=== PATIENT | male | born 1955 | race Caucasian/White ===

== ENCOUNTER → 2016-04-10 | Outpatient (CLI) | payer BC ==
[~2016-04-10] MED LIST: ALLO100T PO; ASPI81TA28 PO; ATEN50TA8 PO; LISI10TA PO; MELO15TA4 PO
[2016-04-10 18:10] LABS: BLOOD UREA NITROGEN 19 mg/dl (7-18); CALCIUM 8.7 mg/dl (8.5-10.1); CARBON DIOXIDE 24 mmol/L (21-32); CHLORIDE 107 mmol/L (98-107); GLUCOSE 78 mg/dl (70-99); POTASSIUM 4.1 mmol/L (3.5-5.1); SODIUM 139 mmol/L (136-145); URIC ACID 6.7 mg/dl (2.6-7.2)
== END | disposition home or self-care (01) ==
LOC: C.LABPBG 12:52
PROVIDERS: ATTEND Family Medicine
DX: M1A.9XX0 Chronic gout, unspecified, without tophus (tophi) (principal); I10 Essential (primary) hypertension

== ENCOUNTER → 2016-10-26 | Outpatient (CLI) | payer BC ==
[~2016-10-26] MED LIST changes: +DICL-201 PO
[2016-10-29 22:28] LABS: CHLORIDE STOOL 33 mEq/L; POTASSIUM STOOL 48 mEq/L
== END | disposition home or self-care (01) ==
LOC: C.LABSPEC 13:03
PROVIDERS: ATTEND Physician Assistant
DX: R19.7 Diarrhea, unspecified (principal)

== ENCOUNTER → 2016-11-16 | Day surgery (SDC) | payer BC ==
[~2016-11-16] VITALS: Ht 180.3 cm; Wt 87.5 kg
[2016-11-16 08:14] VITALS: BP 119/78; PULSE 60; TEMP 36.6; O2SAT 99; Ht 180.3 cm; Wt 87.5 kg
[2016-11-16 11:54] VITALS: BP 120/80; PULSE 60; TEMP 36.5; O2SAT 99
--- NOTE | 2016-11-24 12:23 | Procedure Note ---
Breath Hydrogen Test Interpretation Assessment: Normal Lactose breath test, without any evidence of Lactose intolerance. Plan: Followup with PCP for further evaluation and recommendations.
== END | disposition home or self-care (01) ==
LOC: C.MTU 08:03
PROVIDERS: ATTEND Internal Medicine
DX: R19.7 Diarrhea, unspecified (principal)

== ENCOUNTER → 2016-12-07 | Outpatient (CLI) | payer BC ==
[~2016-12-07] MED LIST changes: -ATEN50TA8 PO; -MELO15TA4 PO
[2016-12-07 15:12] LABS: CHOLESTEROL/HDL RATIO 3.5
== END | disposition home or self-care (01) ==
LOC: C.LABPBG 11:06
PROVIDERS: ATTEND Family Medicine
DX: Z00.00 Encounter for general adult medical examination without abnormal findings (principal); Z13.220 Encounter for screening for lipoid disorders; Z13.1 Encounter for screening for diabetes mellitus

== ENCOUNTER → 2017-02-20 | Outpatient (CLI) | payer OTHER ==
[~2017-02-20] MED LIST changes: +HYOS1TAB PO; +LISI20TA3 PO
== END | disposition home or self-care (01) ==
LOC: C.LABSPEC 15:38
PROVIDERS: ATTEND Student in an Organized Health Care Education/Training Program
DX: R19.7 Diarrhea, unspecified (principal)

== ENCOUNTER → 2017-03-08 | Day surgery (SDC) | payer OTHER ==
[2017-02-22 13:07] VITALS: Ht 180.3 cm; Wt 87.7 kg
[~2017-03-08] VITALS: Ht 180.3 cm; Wt 87.7 kg
[~2017-03-08] MED LIST changes: +LIDOCAINE HCL 2% 2 ML VIAL (20MG/ML) ONE; -LISI10TA PO; +MIDAZOLAM HCL 1 MG/ML 2ML VIAL ONE; +ONDANSETRON INJ 2 MG/ML 2 ML VIAL ONE; +PROPOFOL IV EMULSION 10 MG/ML 20 ML VIAL IV ONE; +SODIUM CHLORIDE 0.9% 500ML 500 ML IV ONE
--- NOTE | 2017-03-08 10:13 | Endo History and Physical ---
History & Physical Date of Service: Mar 08, 2017. Chief Complaint: diarrhea Referring Physician: Dr. Esperanza Crook History of Present Illness 61 yo CM who presents for colonoscopy secondary to diarrhea. Past Surgical History Hx Cardiac Surgery: No Hx Internal Defibrillator: No Hx Pacemaker: No Hx Abdominal Surgery: No Hx of Implantable Prosthesis: No Hx Post-Op Nausea and Vomiting: No Hx Cancer Surgery: No Hx Thoracic Surgery: No Hx Orthopedic: No Hx Urinary Tract Surgery: No Family History None Social History Smoking Status: Never Smoker Hx Substance Use: No Hx Alcohol Use: No Allergies Coded Allergies: No Known Allergies (Verified , 03/08/17) Current Medications Reported Home Medications Medications Dose Route/Sig Max Daily Dose Days Date Category Dose Instructions Levsin (Hyoscyamine Sulfate) 0.125 Mg Tab 2 Tabs PO QID 02/22/17 Reported Prinivil (Lisinopril) 20 Mg Tab 20 Mg PO HS 02/22/17 Reported Voltaren (Diclofenac Sodium) 75 Mg Tabcr 75 Mg PO BID 11/16/16 Reported WITH FOOD Aspirin Ec (Aspirin) 81 Mg Tab 81 Mg PO HS 12/20/15 Reported Zyloprim (Allopurinol) 100 Mg Tab 100 Mg PO HS 12/20/15 Reported Vital Signs Weight (Kilograms): 87.73 Height (Feet): 5 Height (Inches): 11 Date Time Temp Pulse Resp B/P (MAP) Pulse Ox O2 Delivery O2 Flow Rate FiO2 03/08/17 09:40 36.7 90 20 128/88 (101) 98 Room Air Physical Exam General Appearance: WD/WN, no apparent distress Respiratory/Chest: Auscultation: breath sounds normal Cardiovascular: Heart Auscultation: RRR Abdomen: Bowel Sounds: normal Inspection & Palpation: soft, non-distended, no tenderness, guarding & rebound Assessment and Plan Assessment: 61 yo CM who presents for colonoscopy secondary to diarrhea. Plan: Proceed with colonoscopy.
--- NOTE | 2017-03-08 11:00 | Discharge Instructions ---
Endoscopy Patient Instructions Date / Procedure(s) Performed Mar 08, 2017. Colonoscopy Allergy Information Coded Allergies: No Known Allergies (Verified , 03/08/17) Discharge Date / Findings Mar 08, 2017. Random colon biopsies Stool studies collected Internal hemorrhoids Medication Instructions Stopped Medication(s): took ASA last night at 1930 OK to resume all medications today as prescribed Reported Home Medications Medications Dose Route/Sig Max Daily Dose Days Date Category Dose Instructions Levsin (Hyoscyamine Sulfate) 0.125 Mg Tab 2 Tabs PO QID 02/22/17 Reported Prinivil (Lisinopril) 20 Mg Tab 20 Mg PO HS 02/22/17 Reported Voltaren (Diclofenac Sodium) 75 Mg Tabcr 75 Mg PO BID 11/16/16 Reported WITH FOOD Aspirin Ec (Aspirin) 81 Mg Tab 81 Mg PO HS 12/20/15 Reported Zyloprim (Allopurinol) 100 Mg Tab 100 Mg PO HS 12/20/15 Reported Provider Instructions Activity Restrictions - No exercising or heavy lifting for 24 hours. - Do not drink alcohol the day of the procedure. - Do not drive a car or operate machinery until the day after the procedure. - Do not make any important decisions or sign important papers in 24 hours after the procedure. Following Day: - Return to full activity which may include returning to work/school. Diet Start your diet with liquids and light foods (jello, soup, juice, toast). Then eat your usual diet if not nauseated. Treatment For Common After Affects For mild abdominal pain, bloating, or excessive gas: - Rest - Eat lightly - Lie on right side Follow-Up Information Follow-up with Dr. Esperanza Crook as scheduled Anesthesia Information What You Should Know You have had a procedure that required some medicine to reduce anxiety and discomfort. This treatment is called moderate sedation. After receiving the treatment, you may be sleepy, but you will be able to breathe on your own. The effects of the treatment may last for several hours. Follow these instructions along with Activity/Diet recommendations noted above: * Do NOT do anything where dizziness or clumsiness would be dangerous. * Rest quietly at home today, then you can be up and about tomorrow. * Have a responsible person stay with you the rest of today. * You may have had an I.V. today. If so, you may take the dressing off later today. Recommendations Call your doctor if: * Trouble breathing * Continuous vomiting for more than 24 hours * Temperature above 101 degrees * Severe abdominal pain or bloating * Pain not relieved by pain medicine ordered * There is increased drainage or redness from any incision * A large amount of rectal bleeding greater than 2-3 tablespoons. (If you had a polyp/s removed or have hemorrhoids, a small amount of blood - from the rectum is to be expected.) * You have any unanswered questions or concerns. IN THE EVENT OF A SERIOUS EMERGENCY, GO TO THE NEAREST EMERGENCY ROOM Your discharge instructions were prepared by provider Yoan West. Patient Instructions Signature Page Eyad Tillman Patient (or Guardian) Signature/Date: I have read and understand the instructions given to me by my caregivers. Caregiver/RN/Doctor Signature/Date: The above-named patient and/or guardian has received patient instructions on this date. + Original Patient Signature Page (only) stays with chart. Please make copy for patient.
--- NOTE | 2017-03-08 11:05 | GI REPORT ---
Procedure Date: 03/08/2017 10:34 AM Procedure: Colonoscopy Indications: Chronic diarrhea Medicines: Monitored Anesthesia Care Complications: No immediate complications. Estimated Blood Loss: Estimated blood loss: none. Procedure: Pre-Anesthesia Assessment: - Prior to the procedure, a History and Physical was performed, and patient medications and allergies were reviewed. The patient's tolerance of previous anesthesia was also reviewed. The risks and benefits of the procedure and the sedation options and risks were discussed with the patient. All questions were answered, and informed consent was obtained. Prior Anticoagulants: The patient has taken aspirin, last dose was 1 day prior to procedure. ASA Grade Assessment: II - A patient with mild systemic disease. After reviewing the risks and benefits, the patient was deemed in satisfactory condition to undergo the procedure. After I obtained informed consent, the scope was passed under direct vision. Throughout the procedure, the patient's blood pressure, pulse, and oxygen saturations were monitored continuously. The scope was introduced through the anus and advanced to the terminal ileum. The colonoscopy was performed without difficulty. The patient tolerated the procedure well. The quality of the bowel preparation was good. The terminal ileum, the appendiceal orifice and the rectum were photographed. Findings: The perianal and digital rectal examinations were normal. Non-bleeding internal hemorrhoids were found during retroflexion. The hemorrhoids were small. Several random biopsies were obtained with cold forceps for histology in the entire colon. Fluid aspiration for Stool studies was performed in the entire colon. Impression: - Non-bleeding internal hemorrhoids. - Several random biopsies were obtained in the entire colon. - Fluid aspiration was performed. Recommendation: - Resume previous diet. - Continue present medications. - Await pathology results. - Return to primary care physician as previously scheduled. Yoan West DO 03/08/2017 11:05:23 AM This report has been signed electronically. Note Initiated On: 03/08/2017 10:34 AM I attest to the content of the Intraoperative Record and orders documented therein, exceptions below
--- NOTE | 2017-03-08 11:30 | Anesthesiology Progress Note ---
Anesthesia Post Op Note Date & Time Mar 08, 2017 at 11:30 Vital Signs Pain Intensity: 0 Vital Signs Past 12 Hours Date Time Temp Pulse Resp B/P (MAP) Pulse Ox O2 Delivery O2 Flow Rate FiO2 03/08/17 11:15 92 20 104/72 (83) 97 Room Air 03/08/17 11:00 84 20 94/64 (74) 94 Room Air 03/08/17 09:40 36.7 90 20 128/88 (101) 98 Room Air Notes Mental Status: alert / awake / arousable, participated in evaluation Pt Amnestic to Procedure: Yes Nausea / Vomiting: adequately controlled Pain: adequately controlled Airway Patency, RR, SpO2: stable & adequate BP & HR: stable & adequate Hydration State: stable & adequate Anesthetic Complications: no major complications apparent
[2017-03-08 11:31] VITALS: BP 108/72; PULSE 81; O2SAT 97
== END | disposition home or self-care (01) ==
LOC: C.GI 09:18
PROVIDERS: ATTEND Internal Medicine
DX: K52.832 Lymphocytic colitis (principal); K64.8 Other hemorrhoids; Z79.82 Long term (current) use of aspirin; I10 Essential (primary) hypertension

== ENCOUNTER → 2017-04-20 | Outpatient (CLI) | payer OTHER ==
[~2017-04-20] MED LIST changes: -LIDOCAINE HCL 2% 2 ML VIAL (20MG/ML) ONE; -MIDAZOLAM HCL 1 MG/ML 2ML VIAL ONE; -ONDANSETRON INJ 2 MG/ML 2 ML VIAL ONE; -PROPOFOL IV EMULSION 10 MG/ML 20 ML VIAL IV ONE; -SODIUM CHLORIDE 0.9% 500ML 500 ML IV ONE
[2017-04-20 12:55] LABS: BLOOD UREA NITROGEN 31 mg/dl (7-18); CALCIUM 9.1 mg/dl (8.5-10.1); CARBON DIOXIDE 25 mmol/L (21-32); CREATININE 1.05 mg/dl (0.60-1.40); GLUCOSE 81 mg/dl (70-99); SODIUM 140 mmol/L (136-145)
== END | disposition home or self-care (01) ==
LOC: C.LABPBG 08:02
PROVIDERS: ATTEND Family Medicine
DX: I10 Essential (primary) hypertension (principal)

== ENCOUNTER → 2017-06-25 | Outpatient (CLI) | payer OTHER ==
[2017-06-25 17:23] LABS: BLOOD UREA NITROGEN 21 mg/dl (7-18); CREATININE 0.95 mg/dl (0.60-1.40); GLUCOSE,FASTING 75 mg/dl (70-99)
[2017-06-25 17:24] LABS: CALCIUM 8.7 mg/dl (8.5-10.1); CARBON DIOXIDE 21 mmol/L (21-32); POTASSIUM 3.8 mmol/L (3.5-5.1); SODIUM 140 mmol/L (136-145)
== END | disposition home or self-care (01) ==
LOC: C.LABPBG 11:13
PROVIDERS: ATTEND Family Medicine
DX: K52.832 Lymphocytic colitis (principal)

== ENCOUNTER 2020-01-12 09:33 | Inpatient (IN) ==
[2020-01-12] MEDS ORDERED: IPRATROPIUM BROMIDE/ALBUTEROL respimat INH INH STA (09:58)
[2020-01-12] MEDS ORDERED: guaiFENesin 600 MG TABCR PO STA (09:58)
[2020-01-12] MEDS ORDERED: DEXAMETHASONE SOD INJ 10 MG/ML VIAL IV ONE (10:03)
--- NOTE | 2020-01-12 10:10 | Emergency Department Note ---
Impression & Plan Pneumonia due to COVID-19 virus, SHERYL (acute kidney injury), Lactic acid acidosis, Acute liver failure, Sepsis, Acute respiratory failure ED Provider Note NAME: MEGA KONG AGE: 64 SEX: M ARRIVES VIA: Walk-In INFORMANT: Patient, ED PROVIDER(S): Victor Hugo Ferris MD CHIEF COMPLAINT: Syncope, shortness of breath. PLAN: Disposition: Admit MEDICAL DECISION MAKING: The patient is a pleasant 64-year-old gentleman with a past medical history of hypertension, hyperlipidemia who presents emergency department with syncopal episode when in route to obtain outpatient chest x-ray for worsening shortness of breath in the setting of presumed COVID-19 infection given his tested positive in the past week. Patient had outpatient test performed yesterday but is still awaiting his confirmatory results. He was started on azithromycin and prednisone for suspicion for component of bronchitis by his PCP. He reports fevers, chills, body aches, persistent cough and shortness of breath where he feels he is breathing fast all the time and easily becomes lightheaded with minimal exertion. When walking into the hospital he began to feel lightheaded and fell against the wall/window and lowered himself to the ground he did not feel he hit his head hard and did not pass out. He was brought back immediately by ED staff where he appeared significantly dyspneic with respiratory rate in the 40s, heart rate in the 120s, normal blood pressure but difficult to obtain O2 saturation placed on O2 nasal cannula given his work of breathing. On arrival he is in moderate respiratory distress, tachypneic, tachycardic. Appears clinically dry. He has intermittent wheeze and diminished at the bases. EKG demonstrates nonspecific ST and T wave abnormality with incomplete right bundle branch block and left posterior fascicular block. There is no prior EKGs for comparison. No overt ST elevation. WBC 16.4, with neutrophil predominance. H/H and platelets within normal limits. VBG with acidemia of 7.25 and PCO2 of 37 with chemistry demonstrating anion gap metabolic acidosis with a gap of 20 and bicarb of 16. He does have acute renal failure with creatinine of 2.7. Initial lactic acid was 9.8 with subsequent improvement after IV fluid resuscitation down to 7.0. The patient did exhibit significant transaminitis with AST 2900 and ALT 2000 there with INR 1.2. Troponin is 1.3 likely demand in the setting of the patient's sepsis with multiorgan involvement. ESR and CRP are elevated at 24 and 9, respectively. D- dimer was elevated however in the setting of the patient's acute renal failure CTA was deferred at this time but CT of the chest and abdomen pelvis was performed and demonstrates diffuse multifocal groundglass consolidations, which is consistent with the patient's suspected COVID-19 infection which was confirmed on molecular RNA, NAAT test. CT the abdomen pelvis was negative for acute intra-abdominal process. Procalcitonin 1.3. The patient was treated empirically with Zosyn and vancomycin given the severity of his presentation and lab results. UA without convincing evidence of infection. On return from CT where the patient was lying supine he did develop acute worsening of his respiratory status and became briefly cyanotic with labored breathing but this did improve upon sitting the patient up and placing on 100% O2. Was then placed on BiPAP for respiratory support given his continued but improving tachypnea in the setting of IV fluid resuscitation in the setting of acute renal failure. He did continue to improve in terms of his respiratory status though still with guarded clinical status given lactate of 7. Case was discussed with Dr. Crystal Do, [facility] hospitalist, who will evaluate the patient for admission. Case also reviewed with Dr. Guillory, ICU account services analyst who will discuss the case further with hospitalist service for disposition. Triage Nursing notes reviewed and agree them. Prior medical records reviewed Vital Signs: reviewed and remarkable for tachypnea. Differential diagnosis: Reactive airway disease, pneumonia, pneumothorax, COPD, CHF, infections, cardiac ischemia, pulmonary embolism, musculoskeletal, gastrointestinal, as well as other pathologies. ER treatment provided: See below. Diagnostics interpreted by me: ECG: Sinus tachycardia, 123 bpm, incomplete right bundle branch block, left posterior fascicular block, nonspecific ST and T wave abnormality, no overt ST elevation. QTc 438, QRS 104. Cardiac Monitoring: An order for continuous cardiac monitoring was placed and demonstrated Sinus tachycardia, 123 bpm, no ectopy. Laboratory studies: See below Imaging studies: CT SCAN OF THE CHEST, ABDOMEN, AND PELVIS WITHOUT IV CONTRAST CLINICAL HISTORY: Sepsis. Covid. COMPARISON STUDY: No priors. TECHNIQUE: Unenhanced CT scan of the chest, abdomen, and pelvis was performed from the thoracic inlet to the proximal femora. Images are reviewed in the axial, sagittal, and coronal planes. IV contrast was not administered due to poor renal function. A dose lowering technique was utilized adhering to the principles of ALARA. CT DOSE: 1237.80 mGy.cm FINDINGS: CHEST: Thyroid: Imaged portions of the thyroid gland are normal in size and attenuation. Thoracic aorta: There is mild atherosclerotic calcification of the thoracic aorta, which is normal in caliber and demonstrates standard 3-vessel arch anatomy. Heart: The heart is noting mild atherosclerotic calcification mildly enlarged and without pericardial effusion. There are scattered coronary artery calcifications. Lungs and pleural spaces: Evaluation of the lung parenchyma is degraded by motion artifact. There is diffuse multifocal groundglass consolidation seen throughout both lungs. The trachea and central airways are clear. No pleural effusion is identified. Mediastinum: Subcentimeter mediastinal lymph nodes are not pathologically enlarged by size criteria. Sherrill: Not well assessed without IV contrast. Axillae: There is no axillary lymphadenopathy. Bony thorax: No lytic or blastic lesions are identified. ABDOMEN AND PELVIS: Liver: The unenhanced liver is top normal in size and demonstrates diffusely diminished attenuation consistent with severe hepatic steatosis. Fatty sparing is seen adjacent to gallbladder fossa. There is no intrahepatic biliary ductal dilatation. Gallbladder: Unremarkable. Spleen: Normal in size and attenuation. Pancreas: The unenhanced pancreas is grossly unremarkable. Adrenal glands: Unremarkable. Kidneys: The unenhanced kidneys demonstrate mild cortical atrophy and are without hydronephrosis. No renal calculi are identified. There is no evidence of contour deforming mass lesion. Abdominal vasculature: The abdominal aorta is normal in course and caliber. Stomach and bowel: There is a small hiatal hernia. There is no bowel obstruction. The appendix is well-visualized and normal. Peritoneum: There is no intraperitoneal free air or abdominal ascites. There is a fat-containing umbilical hernia. Lymphadenopathy: None. Pelvic viscera: The bladder, prostate, and seminal vesicles are normal as visualized. Skeletal structures: There is mild lumbosacral spondylosis. No lytic or blastic lesions are seen. IMPRESSION: 1. There is diffuse multifocal groundglass consolidation typical for an infectious/inflammatory pneumonitis. Radiographic follow-up to resolution is recommended. 2. Mild cardiomegaly. 3. No acute infectious or inflammatory findings are identified in the abdomen or pelvis. 4. Severe hepatic steatosis. 5. Additional findings as above. ACT 112: Negative or not required by law. Consultation(s): Dr. Crystal Do, [facility] hospitalist. Dr. Guillory, ICU account services analyst. HPI: The patient is a pleasant 64-year-old gentleman with a past medical history of hypertension, hyperlipidemia who presents emergency department with syncopal episode when in route to obtain outpatient chest x-ray for worsening shortness of breath in the setting of presumed COVID-19 infection given his tested positive in the past week. Patient had outpatient test performed yesterday but is still awaiting his confirmatory results. He was started on azithromycin and prednisone for suspicion for component of bronchitis by his PCP. He reports fevers, chills, body aches, persistent cough and shortness of breath where he feels he is breathing fast all the time and easily becomes lightheaded with minimal exertion. When walking into the hospital he began to feel lightheaded and fell against the wall/window and lowered himself to the ground he did not feel he hit his head hard and did not pass out. He was brought back immediately by ED staff where he appeared significantly dyspneic with respiratory rate in the 40s, heart rate in the 120s, normal blood pressure but difficult to obtain O2 saturation placed on O2 nasal cannula given his work of breathing. ROS: See above HPI for pertinent positives & negatives. A total of 10 systems reviewed and were otherwise negative. PAST MEDICAL HISTORY:See Below PAST SURGICAL HISTORY:See Below FAMILY HISTORY:See Below SOCIAL HISTORY:See Below HOME MEDICATIONS:See Below ALLERGIES:See Below VITALS:See Below PHYSICAL EXAMINATION: GENERAL: Awake, alert, uncomfortable, ill-appearing, in no distress HENT: Normocephalic, atraumatic. Oropharynx with dry mucous membranes and otherwise unremarkable. . EYES: Normal conjunctiva. Sclera non-icteric. NECK: Supple. No nuchal rigidity. FROM. No JVD. RESPIRATORY: Intermittent wheezes and diminished at the bases. Moderate resp iratory distress. CARDIAC: Tachycardic rate, normal rhythm. Extremities warm and well perfused. Pulses equal. ABDOMEN: Soft, non-distended. No tenderness to palpation. No rebound or guarding. No masses. RECTAL: Deferred. MUSCULOSKELETAL: Chest examination reveals no tenderness. The back is symmetric al on inspection without obvious abnormality. There is no CVA tenderness to palpation. No joint edema. LOWER EXTREMITIES: Calves are equal size bilaterally and non-tender. No edema. No discoloration. NEURO: Normal sensorium. No sensory or motor deficits noted. SKIN: No rash or jaundice noted. ED COURSE: Critical Care: I have personally spent greater than 125 minutes of critical care time in the direct management of this patient. This includes bedside care, interpretation of diagnostic studies, and testing, discussion with consultants, patient, and family members, and other required patient management activities. This 125 minutes is in excess of all separately billable procedures. Victor Hugo Ferris MD Past Med/Surg History Medical History Acute kidney injury Acute liver failure Breast lump Broken ankle Broken collarbone COVID-19 Hyperlipidemia Hypertension with goal blood pressure less than 140/90 Lymphocytic colitis Osteoarthritis, hand Family History Mother Cancer stomach CA Brother Cancer liver CA Denies family history of Ovarian cancer Prostate cancer Myocardial infarction Breast cancer Colorectal cancer Social History Smoking Status: Never smoker Second Hand Exposure: No; Hx Alcohol Use: Yes Alcohol type: beer Alcohol Intake Frequency Comment: 1-2x per week Hx Substance Use: No Preferred Language: Monegasque Communication Ability: Effective 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: No Beliefs That Will Affect Care: None marital status: Current Living Situation: Spouse current occupational status: employed current occupation: [employer] Feels Safe at Home: Yes Dental Care, Regularly: Yes Physical Activity Frequency: Does not Exercise Physical Activity Frequency Comment: walking Seatbelt Use: always Do you think of yourself as: straight/heterosexual Assistive Devices: None Allergies Allergies Allergy/AdvReac Type Severity Reaction Status Date / Time No Known Allergies Allergy Verified 01/12/20 10:44 Home Meds Home Medications Medication Instructions Recorded Confirmed aspirin 81 mg tablet,delayed 81 mg PO QAM 10/13/18 01/12/20 release allopurinol 100 mg PO QAM 01/12/20 01/12/20 amitriptyline 20 mg PO PM 01/12/20 01/12/20 azithromycin 250 mg PO QAM 01/12/20 01/12/20 lisinopril 20 mg PO PM 01/12/20 01/12/20 prednisone 10 mg PO DIRECTED 01/12/20 01/12/20 Previous Rx's Medication Instructions Recorded atorvastatin 10 mg tablet 10 mg PO QPM #90 tab 05/08/19 sildenafil (pulm.hypertension) 20 50 - 100 mg PO DAILY PRN #30 tab 01/01/20 mg tablet albuterol sulfate 90 mcg/actuation 2 puff INHALATION .COMPLEX PRN 01/10/20 aerosol inhaler #8.5 g inhalational spacing device #1 ea 01/10/20 Results & Data (ED) Vital Signs Vital Signs - 24 hr 01/12/20 09:37 01/12/20 10:39 01/12/20 10:44 Temperature Temperature Source Pulse Rate 120 H Pulse Rate [Left Finger] 84 Respiratory Rate 40 H 24 Respiratory Effort / Characteristics Spontaneous Respiratory Depth Respiratory Pattern Blood Pressure 100/66 Blood Pressure [Left Arm] Blood Pressure Mean 77 Blood Pressure Mean [Left Arm] Pulse Oximetry Oxygen Delivery Method Nasal Cannula Nasal Cannula Oxygen Flow Rate 2 2 Fraction of Inspired Oxygen SaO2/FiO2 Ratio Sepsis Recent Fever Within 48 Hours Yes Sepsis New/Unexplained Change in Mental Status N/A Sepsis Action Taken by Nursing Physician Notified 01/12/20 10:46 01/12/20 11:32 01/12/20 11:52 Temperature 36.4 C L Temperature Source Oral Pulse Rate Pulse Rate [Left Finger] 103 H 107 H Respiratory Rate 34 H 38 H Respiratory Effort / Characteristics Respiratory Depth Respiratory Pattern Blood Pressure Blood Pressure [Left Arm] 100/66 122/83 Blood Pressure Mean Blood Pressure Mean [Left Arm] 77 96 Pulse Oximetry 100 100 95 Oxygen Delivery Method Nasal Cannula Nasal Cannula Nasal Cannula Oxygen Flow Rate 2 6 Fraction of Inspired Oxygen SaO2/FiO2 Ratio Sepsis Recent Fever Within 48 Hours Sepsis New/Unexplained Change in Mental Status Sepsis Action Taken by Nursing 01/12/20 11:59 01/12/20 12:13 Temperature Temperature Source Pulse Rate 92 H Pulse Rate [Left Finger] 93 H Respiratory Rate 30 H 34 H Respiratory Effort / Characteristics Non-Labored Respiratory Depth Normal Respiratory Pattern Regular Blood Pressure Blood Pressure [Left Arm] 141/90 H Blood Pressure Mean Blood Pressure Mean [Left Arm] 107 Pulse Oximetry 100 100 Oxygen Delivery Method BiPAP Oxygen Flow Rate Fraction of Inspired Oxygen 100 100 SaO2/FiO2 Ratio 100 Sepsis Recent Fever Within 48 Hours Sepsis New/Unexplained Change in Mental Status Sepsis Action Taken by Nursing Laboratory Data Attestation: I reviewed the patient's lab results. Result diagrams: 12/04/20 10:21 01/12/20 10:21 Lab Results 01/12/20 01/12/20 01/12/20 Range/Units 10:21 10:21 10:21 WBC 16.44 H (4.8-10.8) K/uL RBC 5.26 (4.7-6.1) M/uL Hgb 15.9 (14.0-18.0) g/dL Hct 48.3 (42-52) % MCV 91.8 (80-100) fL MCH 30.2 (25-34) pg MCHC 32.9 (32-36) g/dL RDW Std Deviation 45.0 (36.4-46.3) fL RDW Coeff of Griffin 13.4 (11.5-14.5) % Plt Count 274 (130-400) K/uL MPV 9.8 (7.4-10.4) fL Immature Gran % (Auto) 2.9 % Neut % (Auto) 86.8 % Lymph % (Auto) 7.5 % [place] % (Auto) 2.6 % Eos % (Auto) 0.0 % Baso % (Auto) 0.2 % Neut # (Auto) 14.27 H (1.4-6.5) K/uL Lymph # (Auto) 1.23 (1.2-3.4) K/uL [place] # (Auto) 0.42 (0.11-0.59) K/uL Eos # (Auto) 0.00 (0-0.5) K/uL Baso # (Auto) 0.04 (0-0.2) K/uL Immature Gran # (Auto) 0.48 H (0.00-0.02) K/uL Absolute Nucleated RBC 0.10 H (0-0) K/uL Nucleated RBC % (auto) 0.6 % ESR (0-14) mm/hr PT 12.4 H (9.0-12.0) Seconds INR 1.2 H (0.9-1.1) APTT 22.9 (21.0-31.0) Seconds PTT Ratio 0.8 D-Dimer 5260 H* (0-500) ug/L FEU VBG pH (7.36-7.41) VBG pCO2 (38-50) mmHg VBG pO2 mmHg VBG HCO3 mmol/L VBG O2 Saturation % VBG Base Excess mEq/L Barometric Pressure mm/Hg Sodium 139 (136-145) mmol/L Potassium 4.7 (3.5-5.1) mmol/L Chloride 103 (98-107) mmol/L Carbon Dioxide 16 L (21-32) mmol/L Anion Gap 20.0 H (3-11) BUN 62 H (7-18) mg/dl Creatinine 2.71 H (0.6-1.4) mg/dl Est Cr Clr Drug Dosing 31.8 ml/min Est GFR ( Amer) 27.3 Est GFR (Non-Af Amer) 23.6 BUN/Creatinine Ratio 22.9 H (10-20) Glucose 166 H (70-99) mg/dl Lactate (0.4-2.0) mmol/L Calcium 9.0 (8.5-10.1) mg/dl Phosphorus 7.3 H (2.5-4.9) mg/dl Magnesium 2.6 H (1.8-2.4) mg/dl Total Bilirubin 1.1 H (0.2-1) mg/dl Direct Bilirubin 0.4 H (0-0.2) mg/dl AST 2929 H (15-37) U/L ALT 2007 H (12-78) U/L Alkaline Phosphatase 126 H (45-117) U/L Total Creatine Kinase (39-308) U/L Troponin I 1.230 H* (0-0.045) ng/ml C-Reactive Protein 9.79 H (0-0.29) mg/dl Total Protein 7.3 (6.4-8.2) gm/dl Albumin 2.9 L (3.4-5.0) gm/dl Globulin 4.4 H (2.5-4.0) gm/dl Albumin/Globulin Ratio 0.7 L (0.9-2) Procalcitonin (0-0.5) ng/ml TSH 1.320 (0.300-4.500) uIu/ml Urine Color Urine Appearance (Clear) Urine pH (4.5-7.5) Ur Specific [place] (1.000-1.030) Urine Protein (Negative) Urine Glucose (UA) (Negative) Urine Ketones (Negative) Urine Blood (Negative) Urine Nitrite (Negative) Urine Bilirubin (Negative) Urine Urobilinogen (Negative) Ur Leukocyte Esterase (Negative) Urine WBC (Auto) (0-5) /hpf Urine RBC (Auto) (0-4) /hpf U Hyaline Cast (Auto) (0-5) /lpf U Epithel Cells (Auto) (0-5) /lpf Urine Bacteria (Auto) (Negative) Ur Renal Epithelial Cell Amorphous Sediment (None Prsent) Granular Casts (0) /lpf Ur Random Sodium mmol/L Ur Random Urea Nitrogn mg/dl COVID-19 Eval Order SARS-CoV-2, RNA, NAAT (NEGATIVE) Blood Type Antibody Screen 01/12/20 01/12/20 01/12/20 Range/Units 10:21 10:21 10:21 WBC (4.8-10.8) K/uL RBC (4.7-6.1) M/uL Hgb (14.0-18.0) g/dL Hct (42-52) % MCV (80-100) fL MCH (25-34) pg MCHC (32-36) g/dL RDW Std Deviation (36.4-46.3) fL RDW Coeff of Griffin (11.5-14.5) % Plt Count (130-400) K/uL MPV (7.4-10.4) fL Immature Gran % (Auto) % Neut % (Auto) % Lymph % (Auto) % [place] % (Auto) % Eos % (Auto) % Baso % (Auto) % Neut # (Auto) (1.4-6.5) K/uL Lymph # (Auto) (1.2-3.4) K/uL [place] # (Auto) (0.11-0.59) K/uL Eos # (Auto) (0-0.5) K/uL Baso # (Auto) (0-0.2) K/uL Immature Gran # (Auto) (0.00-0.02) K/uL Absolute Nucleated RBC (0-0) K/uL Nucleated RBC % (auto) % ESR 24 H (0-14) mm/hr PT (9.0-12.0) Seconds INR (0.9-1.1) APTT (21.0-31.0) Seconds PTT Ratio D-Dimer (0-500) ug/L FEU VBG pH (7.36-7.41) VBG pCO2 (38-50) mmHg VBG pO2 mmHg VBG HCO3 mmol/L VBG O2 Saturation % VBG Base Excess mEq/L Barometric Pressure mm/Hg Sodium (136-145) mmol/L Potassium (3.5-5.1) mmol/L Chloride (98-107) mmol/L Carbon Dioxide (21-32) mmol/L Anion Gap (3-11) BUN (7-18) mg/dl Creatinine (0.6-1.4) mg/dl Est Cr Clr Drug Dosing ml/min Est GFR ( Amer) Est GFR (Non-Af Amer) BUN/Creatinine Ratio (10-20) Glucose (70-99) mg/dl Lactate 9.8 H* (0.4-2.0) mmol/L Calcium (8.5-10.1) mg/dl Phosphorus (2.5-4.9) mg/dl Magnesium (1.8-2.4) mg/dl Total Bilirubin (0.2-1) mg/dl Direct Bilirubin (0-0.2) mg/dl AST (15-37) U/L ALT (12-78) U/L Alkaline Phosphatase (45-117) U/L Total Creatine Kinase (39-308) U/L Troponin I (0-0.045) ng/ml C-Reactive Protein (0-0.29) mg/dl Total Protein (6.4-8.2) gm/dl Albumin (3.4-5.0) gm/dl Globulin (2.5-4.0) gm/dl Albumin/Globulin Ratio (0.9-2) Procalcitonin 1.30 H (0-0.5) ng/ml TSH (0.300-4.500) uIu/ml Urine Color Urine Appearance (Clear) Urine pH (4.5-7.5) Ur Specific [place] (1.000-1.030) Urine Protein (Negative) Urine Glucose (UA) (Negative) Urine Ketones (Negative) Urine Blood (Negative) Urine Nitrite (Negative) Urine Bilirubin (Negative) Urine Urobilinogen (Negative) Ur Leukocyte Esterase (Negative) Urine WBC (Auto) (0-5) /hpf Urine RBC (Auto) (0-4) /hpf U Hyaline Cast (Auto) (0-5) /lpf U Epithel Cells (Auto) (0-5) /lpf Urine Bacteria (Auto) (Negative) Ur Renal Epithelial Cell Amorphous Sediment (None Prsent) Granular Casts (0) /lpf Ur Random Sodium mmol/L Ur Random Urea Nitrogn mg/dl COVID-19 Eval Order SARS-CoV-2, RNA, NAAT (NEGATIVE) Blood Type Antibody Screen 01/12/20 01/12/20 01/12/20 Range/Units 10:21 10:21 10:21 WBC (4.8-10.8) K/uL RBC (4.7-6.1) M/uL Hgb (14.0-18.0) g/dL Hct (42-52) % MCV (80-100) fL MCH (25-34) pg MCHC (32-36) g/dL RDW Std Deviation (36.4-46.3) fL RDW Coeff of Griffin (11.5-14.5) % Plt Count (130-400) K/uL MPV (7.4-10.4) fL Immature Gran % (Auto) % Neut % (Auto) % Lymph % (Auto) % [place] % (Auto) % Eos % (Auto) % Baso % (Auto) % Neut # (Auto) (1.4-6.5) K/uL Lymph # (Auto) (1.2-3.4) K/uL [place] # (Auto) (0.11-0.59) K/uL Eos # (Auto) (0-0.5) K/uL Baso # (Auto) (0-0.2) K/uL Immature Gran # (Auto) (0.00-0.02) K/uL Absolute Nucleated RBC (0-0) K/uL Nucleated RBC % (auto) % ESR (0-14) mm/hr PT (9.0-12.0) Seconds INR (0.9-1.1) APTT (21.0-31.0) Seconds PTT Ratio D-Dimer (0-500) ug/L FEU VBG pH 7.25 L (7.36-7.41) VBG pCO2 37 L (38-50) mmHg VBG pO2 24 mmHg VBG HCO3 16 mmol/L VBG O2 Saturation < 60.0 % VBG Base Excess -10.6 mEq/L Barometric Pressure 734.3 mm/Hg Sodium (136-145) mmol/L Potassium (3.5-5.1) mmol/L Chloride (98-107) mmol/L Carbon Dioxide (21-32) mmol/L Anion Gap (3-11) BUN (7-18) mg/dl Creatinine (0.6-1.4) mg/dl Est Cr Clr Drug Dosing ml/min Est GFR ( Amer) Est GFR (Non-Af Amer) BUN/Creatinine Ratio (10-20) Glucose (70-99) mg/dl Lactate (0.4-2.0) mmol/L Calcium (8.5-10.1) mg/dl Phosphorus (2.5-4.9) mg/dl Magnesium (1.8-2.4) mg/dl Total Bilirubin (0.2-1) mg/dl Direct Bilirubin (0-0.2) mg/dl AST (15-37) U/L ALT (12-78) U/L Alkaline Phosphatase (45-117) U/L Total Creatine Kinase 328 H (39-308) U/L Troponin I (0-0.045) ng/ml C-Reactive Protein (0-0.29) mg/dl Total Protein (6.4-8.2) gm/dl Albumin (3.4-5.0) gm/dl Globulin (2.5-4.0) gm/dl Albumin/Globulin Ratio (0.9-2) Procalcitonin (0-0.5) ng/ml TSH (0.300-4.500) uIu/ml Urine Color Urine Appearance (Clear) Urine pH (4.5-7.5) Ur Specific [place] (1.000-1.030) Urine Protein (Negative) Urine Glucose (UA) (Negative) Urine Ketones (Negative) Urine Blood (Negative) Urine Nitrite (Negative) Urine Bilirubin (Negative) Urine Urobilinogen (Negative) Ur Leukocyte Esterase (Negative) Urine WBC (Auto) (0-5) /hpf Urine RBC (Auto) (0-4) /hpf U Hyaline Cast (Auto) (0-5) /lpf U Epithel Cells (Auto) (0-5) /lpf Urine Bacteria (Auto) (Negative) Ur Renal Epithelial Cell Amorphous Sediment (None Prsent) Granular Casts (0) /lpf Ur Random Sodium mmol/L Ur Random Urea Nitrogn mg/dl COVID-19 Eval Order SARS-CoV-2, RNA, NAAT (NEGATIVE) Blood Type O Positive Antibody Screen NEGATIVE 01/12/20 01/12/20 01/12/20 Range/Units 10:30 10:30 12:00 WBC (4.8-10.8) K/uL RBC (4.7-6.1) M/uL Hgb (14.0-18.0) g/dL Hct (42-52) % MCV (80-100) fL MCH (25-34) pg MCHC (32-36) g/dL RDW Std Deviation (36.4-46.3) fL RDW Coeff of Griffin (11.5-14.5) % Plt Count (130-400) K/uL MPV (7.4-10.4) fL Immature Gran % (Auto) % Neut % (Auto) % Lymph % (Auto) % [place] % (Auto) % Eos % (Auto) % Baso % (Auto) % Neut # (Auto) (1.4-6.5) K/uL Lymph # (Auto) (1.2-3.4) K/uL [place] # (Auto) (0.11-0.59) K/uL Eos # (Auto) (0-0.5) K/uL Baso # (Auto) (0-0.2) K/uL Immature Gran # (Auto) (0.00-0.02) K/uL Absolute Nucleated RBC (0-0) K/uL Nucleated RBC % (auto) % ESR (0-14) mm/hr PT (9.0-12.0) Seconds INR (0.9-1.1) APTT (21.0-31.0) Seconds PTT Ratio D-Dimer (0-500) ug/L FEU VBG pH (7.36-7.41) VBG pCO2 (38-50) mmHg VBG pO2 mmHg VBG HCO3 mmol/L VBG O2 Saturation % VBG Base Excess mEq/L Barometric Pressure mm/Hg Sodium (136-145) mmol/L Potassium (3.5-5.1) mmol/L Chloride (98-107) mmol/L Carbon Dioxide (21-32) mmol/L Anion Gap (3-11) BUN (7-18) mg/dl Creatinine (0.6-1.4) mg/dl Est Cr Clr Drug Dosing ml/min Est GFR ( Amer) Est GFR (Non-Af Amer) BUN/Creatinine Ratio (10-20) Glucose (70-99) mg/dl Lactate (0.4-2.0) mmol/L Calcium (8.5-10.1) mg/dl Phosphorus (2.5-4.9) mg/dl Magnesium (1.8-2.4) mg/dl Total Bilirubin (0.2-1) mg/dl Direct Bilirubin (0-0.2) mg/dl AST (15-37) U/L ALT (12-78) U/L Alkaline Phosphatase (45-117) U/L Total Creatine Kinase (39-308) U/L Troponin I (0-0.045) ng/ml C-Reactive Protein (0-0.29) mg/dl Total Protein (6.4-8.2) gm/dl Albumin (3.4-5.0) gm/dl Globulin (2.5-4.0) gm/dl Albumin/Globulin Ratio (0.9-2) Procalcitonin (0-0.5) ng/ml TSH (0.300-4.500) uIu/ml Urine Color Dark Yellow Urine Appearance Cloudy A (Clear) Urine pH 5.0 (4.5-7.5) Ur Specific [place] 1.025 (1.000-1.030) Urine Protein 2+ H (Negative) Urine Glucose (UA) Negative (Negative) Urine Ketones Trace H (Negative) Urine Blood 3+ H (Negative) Urine Nitrite Negative (Negative) Urine Bilirubin Negative (Negative) Urine Urobilinogen Negative (Negative) Ur Leukocyte Esterase Trace H (Negative) Urine WBC (Auto) 1-5 (0-5) /hpf Urine RBC (Auto) 5-10 H (0-4) /hpf U Hyaline Cast (Auto) 5-10 H (0-5) /lpf U Epithel Cells (Auto) >30 H (0-5) /lpf Urine Bacteria (Auto) 1+ H (Negative) Ur Renal Epithelial Cell Not Reportable Amorphous Sediment Present A (None Prsent) Granular Casts 1-5 H (0) /lpf Ur Random Sodium mmol/L Ur Random Urea Nitrogn mg/dl COVID-19 Eval [facility] SARS-CoV-2, RNA, NAAT POSITIVE A* (NEGATIVE) Blood Type Antibody Screen 01/12/20 01/12/20 Range/Units 12:00 12:12 WBC (4.8-10.8) K/uL RBC (4.7-6.1) M/uL Hgb (14.0-18.0) g/dL Hct (42-52) % MCV (80-100) fL MCH (25-34) pg MCHC (32-36) g/dL RDW Std Deviation (36.4-46.3) fL RDW Coeff of Griffin (11.5-14.5) % Plt Count (130-400) K/uL MPV (7.4-10.4) fL Immature Gran % (Auto) % Neut % (Auto) % Lymph % (Auto) % [place] % (Auto) % Eos % (Auto) % Baso % (Auto) % Neut # (Auto) (1.4-6.5) K/uL Lymph # (Auto) (1.2-3.4) K/uL [place] # (Auto) (0.11-0.59) K/uL Eos # (Auto) (0-0.5) K/uL Baso # (Auto) (0-0.2) K/uL Immature Gran # (Auto) (0.00-0.02) K/uL Absolute Nucleated RBC (0-0) K/uL Nucleated RBC % (auto) % ESR (0-14) mm/hr PT (9.0-12.0) Seconds INR (0.9-1.1) APTT (21.0-31.0) Seconds PTT Ratio D-Dimer (0-500) ug/L FEU VBG pH (7.36-7.41) VBG pCO2 (38-50) mmHg VBG pO2 mmHg VBG HCO3 mmol/L VBG O2 Saturation % VBG Base Excess mEq/L Barometric Pressure mm/Hg Sodium (136-145) mmol/L Potassium (3.5-5.1) mmol/L Chloride (98-107) mmol/L Carbon Dioxide (21-32) mmol/L Anion Gap (3-11) BUN (7-18) mg/dl Creatinine (0.6-1.4) mg/dl Est Cr Clr Drug Dosing ml/min Est GFR ( Amer) Est GFR (Non-Af Amer) BUN/Creatinine Ratio (10-20) Glucose (70-99) mg/dl Lactate 7.0 H* (0.4-2.0) mmol/L Calcium (8.5-10.1) mg/dl Phosphorus (2.5-4.9) mg/dl Magnesium (1.8-2.4) mg/dl Total Bilirubin (0.2-1) mg/dl Direct Bilirubin (0-0.2) mg/dl AST (15-37) U/L ALT (12-78) U/L Alkaline Phosphatase (45-117) U/L Total Creatine Kinase (39-308) U/L Troponin I (0-0.045) ng/ml C-Reactive Protein (0-0.29) mg/dl Total Protein (6.4-8.2) gm/dl Albumin (3.4-5.0) gm/dl Globulin (2.5-4.0) gm/dl Albumin/Globulin Ratio (0.9-2) Procalcitonin (0-0.5) ng/ml TSH (0.300-4.500) uIu/ml Urine Color Urine Appearance (Clear) Urine pH (4.5-7.5) Ur Specific [place] (1.000-1.030) Urine Protein (Negative) Urine Glucose (UA) (Negative) Urine Ketones (Negative) Urine Blood (Negative) Urine Nitrite (Negative) Urine Bilirubin (Negative) Urine Urobilinogen (Negative) Ur Leukocyte Esterase (Negative) Urine WBC (Auto) (0-5) /hpf Urine RBC (Auto) (0-4) /hpf U Hyaline Cast (Auto) (0-5) /lpf U Epithel Cells (Auto) (0-5) /lpf Urine Bacteria (Auto) (Negative) Ur Renal Epithelial Cell Amorphous Sediment (None Prsent) Granular Casts (0) /lpf Ur Random Sodium 21 mmol/L Ur Random Urea Nitrogn 679 mg/dl COVID-19 Eval Order SARS-CoV-2, RNA, NAAT (NEGATIVE) Blood Type Antibody Screen Administered Medications Discontinued Medications Albuterol (Ipratropium [place]/Albuterol Respimat Inh) 2 puffs INH NOW STA Stop: 01/12/20 09:59 Last Admin: 01/12/20 10:39 Dose: 2 puffs Documented by: [id number] Dexamethasone (Dexamethasone Sod Inj 10 Mg/Ml Vial) 10 mg IV NOW ONE Stop: 01/12/20 10:04 Last Admin: 01/12/20 10:31 Dose: 10 mg Documented by: [id number] Guaifenesin (Guaifenesin 600 Mg Tabcr) 600 mg PO NOW STA Stop: 01/12/20 09:59 Last Admin: 01/12/20 10:30 Dose: 600 mg Documented by: [id number] Sodium Chloride (Nss 1000ml) 1,000 mls @ 999 mls/hr IV .Q1H1M AYESHA Stop: 01/12/20 12:01 Last Infusion: 01/12/20 13:30 Dose: 0 mls/hr Documented by: [id number] Admin: 01/12/20 10:31 Dose: 999 mls/hr Documented by: [id number] Piperacillin Sod/Tazobactam Sod (Zosyn) 4.5 gm in 120 mls @ 240 mls/hr IV NOW ONE Stop: 01/12/20 12:10 Last Infusion: 01/12/20 12:29 Dose: 0 mls/hr Documented by: [id number] Admin: 01/12/20 11:56 Dose: 240 mls/hr Documented by: [id number] Vancomycin HCl 2,000 mg/ (Sodium Chloride) 540 mls @ 200 mls/hr IV NOW ONE Stop: 01/12/20 14:22 Last Infusion: 01/12/20 15:46 Dose: 0 mls/hr Documented by: [id number] Admin: 01/12/20 12:02 Dose: 200 mls/hr Documented by: [id number] Discharge Plan Visit Data Chief Complaint: Syncope ED Provider: Victor Hugo Ferris Discharge Problem: Pneumonia due to COVID-19 virus, SHERYL (acute kidney injury), Lactic acid acidosis, Acute liver failure, Sepsis, Acute respiratory failure Patient Disposition: Admitted As Inpatient Discharge Instructions Interventions: ED Discharge Assessment Last Done: 01/12/20 17:08 Discharge Problem: Acute liver failure Qualifiers: Hepatic coma status: without hepatic coma Qualified Code(s): K72.00 - Acute and subacute hepatic failure without coma Sepsis Qualifiers: Sepsis type: sepsis due to unspecified organism Sepsis acute organ dysfunction status: with acute organ dysfunction Severe sepsis acute organ dysfunction type: acute renal failure Acute renal failure type: unspecified Severe sepsis shock status: without septic shock Qualified Code(s): A41.9 - Sepsis, unspecified organism Acute respiratory failure Qualifiers: Respiratory failure complication: unspecified whether with hypoxia or hypercapnia Qualified Code(s): J96.00 - Acute respiratory failure, unspecified whether with hypoxia or hypercapnia
[2020-01-12 10:38] LABS: Hematocrit (blood only) 48.3 % (42-52); Hemoglobin 15.9 g/dL (14.0-18.0); Mean Corpuscular Hemoglobin 30.2 pg (25-34); Mean Corpuscular Hgb Conc 32.9 g/dL (32-36); Mean Corpuscular Volume 91.8 fL (80-100); Mean Platelet Volume 9.8 fL (7.4-10.4); Nucleated RBC % (auto) 0.6 %; Platelet Count 274 K/uL (130-400); RDW Coefficient of Variation 13.4 % (11.5-14.5); Red Blood Count 5.26 M/uL (4.7-6.1); White Blood Count 16.44 K/uL (4.8-10.8)
[2020-01-12 10:51] LABS: Base Excess VBG -10.6 mEq/L; HCO3 VBG 16 mmol/L; PCO2 VBG 37 mmHg (38-50); PO2 VBG 24 mmHg; pH VBG 7.25 (7.36-7.41)
[2020-01-12 10:57] LABS: INR 1.2 (0.9-1.1); Partial Thromboplastin Ratio 0.8; Partial Thromboplastin Time 22.9 Seconds (21.0-31.0); Prothrombin Time 12.4 Seconds (9.0-12.0)
[2020-01-12 10:59] LABS: Albumin Level 2.9 gm/dl (3.4-5.0); BUN Creatinine Ratio 22.9 (10-20); Bilirubin Direct 0.4 mg/dl (0-0.2); C Reactive Protein 9.79 mg/dl (0-0.29); Creatinine Clr Calc Pharmacy 31.8 ml/min; Est GFR (African American) 27.3; Est GFR (Non-African American) 23.6; Magnesium 2.6 mg/dl (1.8-2.4); Potassium 4.7 mmol/L (3.5-5.1)
[2020-01-12] MEDS ORDERED: SODIUM CHLORIDE 0.9% 1000ML 1,000 ML IV SCH (11:01)
[2020-01-12 11:02] LABS: D Dimer 5260 ug/L FEU (0-500)
[2020-01-12 11:08] LABS: Oxygen Saturation VBG < 60.0 %
[2020-01-12 11:09] LABS: Basophils # (auto) 0.04 K/uL (0-0.2); Basophils % (auto) 0.2 %; Immature Granulocytes # (auto) 0.48 K/uL (0.00-0.02); Immature Granulocytes % (auto) 2.9 %; Lymphocytes # (auto) 1.23 K/uL (1.2-3.4); Lymphocytes % (auto) 7.5 %; Monocytes # (auto) 0.42 K/uL (0.11-0.59); Monocytes % (auto) 2.6 %; Neutrophils # (auto) 14.27 K/uL (1.4-6.5); Neutrophils % (auto) 86.8 %
[2020-01-12 11:15] LABS: Albumin Globulin Ratio 0.7 (0.9-2); Bilirubin,Total 1.1 mg/dl (0.2-1); Globulin 4.4 gm/dl (2.5-4.0); Phosphorus 7.3 mg/dl (2.5-4.9); Thyroid Stimulating Hormone 1.32 uIu/ml (0.300-4.500); Total Protein 7.3 gm/dl (6.4-8.2); Troponin I 1.23 ng/ml (0-0.045)
[2020-01-12] MEDS ORDERED: VANCOMYCIN CONSULT ACTIVE PRN ×2 (11:41→17:50)
[2020-01-12] MEDS ORDERED: PIPERACILL/TAZOBAC CONSULT ACTIVE PRN ×2 (11:41→17:50)
[2020-01-12] MEDS ORDERED: VANCOMYCIN HCL 2,000 MG in SODIUM CHLORIDE 0.9% 500 ML IV ONE (11:41)
[2020-01-12] MEDS ORDERED: PIPERACILLIN/TAZOBACTAM 4.5 GM/120 ML BAG IV ONE (11:41)
--- NOTE | 2020-01-12 12:02 | CT Scan Report ---
CT SCAN OF THE CHEST, ABDOMEN, AND PELVIS WITHOUT IV CONTRAST CLINICAL HISTORY: Sepsis. Covid. COMPARISON STUDY: No priors. TECHNIQUE: Unenhanced CT scan of the chest, abdomen, and pelvis was performed from the thoracic inlet to the proximal femora. Images are reviewed in the axial, sagittal, and coronal planes. IV contrast was not administered due to poor renal function. A dose lowering technique was utilized adhering to the principles of ALARA. CT DOSE: 1237.80 mGy.cm FINDINGS: CHEST: Thyroid: Imaged portions of the thyroid gland are normal in size and attenuation. Thoracic aorta: There is mild atherosclerotic calcification of the thoracic aorta, which is normal in caliber and demonstrates standard 3-vessel arch anatomy. Heart: The heart is noting mild atherosclerotic calcification mildly enlarged and without pericardial effusion. There are scattered coronary artery calcifications. Lungs and pleural spaces: Evaluation of the lung parenchyma is degraded by motion artifact. There is diffuse multifocal groundglass consolidation seen throughout both lungs. The trachea and central airw ays are clear. No pleural effusion is identified. Mediastinum: Subcentimeter mediastinal lymph nodes are not pathologically enlarged by size criteria. [place]: Not well assessed without IV contrast. Axillae: There is no axillary lymphadenopathy. Bony thorax: No lytic or blastic lesions are identified. ABDOMEN AND PELVIS: Liver: The unenhanced liver is top normal in size and demonstrates diffusely diminished attenuation c onsistent with severe hepatic steatosis. Fatty sparing is seen adjacent to gallbladder fossa. There i s no intrahepatic biliary ductal dilatation. Gallbladder: Unremarkable. Spleen: Normal in size and attenuation. Pancreas: The unenhanced pancreas is grossly unremarkable. Adrenal glands: Unremarkable. Kidneys: The unenhanced kidneys demonstrate mild cortical atrophy and are without hydronephrosis. No renal calculi are identified. There is no evidence of contour deforming mass lesion. Abdominal vasculature: The abdominal aorta is normal in course and caliber. Stomach and bowel: There is a small hiatal hernia. There is no bowel obstruction. The appendix is we ll-visualized and normal. Peritoneum: There is no intraperitoneal free air or abdominal ascites. There is a fat-containing umbi lical hernia. Lymphadenopathy: None. Pelvic viscera: The bladder, prostate, and seminal vesicles are normal as visualized. Skeletal structures: There is mild lumbosacral spondylosis. No lytic or blastic lesions are seen. IMPRESSION: 1. There is diffuse multifocal groundglass consolidation typical for an infectious/inflammatory pneum onitis. Radiographic follow-up to resolution is recommended. 2. Mild cardiomegaly. 3. No acute infectious or inflammatory findings are identified in the abdomen or pelvis. 4. Severe hepatic steatosis. 5. Additional findings as above. ACT 112: Negative or not required by law. Electronically signed by: Eugenio Mobley M.D. 01/12/2020 12:01 PM
[2020-01-12 12:18] LABS: Appearance Urine Cloudy (Clear); Blood Urine 3+ (Negative); Color Urine Dark Yellow; Epithelial Cell Urine Auto >30 /lpf (0-5); Glucose Urine UA Negative (Negative); Ketones Urine Trace (Negative); Leukocyte Esterase Urine Trace (Negative); Nitrite Urine Negative (Negative); Protein Urine 2+ (Negative); Specific Gravity Urine 1.025 (1.000-1.030); Urobilinogen Urine Negative (Negative)
[2020-01-12 12:21] LABS: Bilirubin Urine Negative (Negative); Ictotest Urine Negative (Negative)
[2020-01-12 12:49] LABS: Amorphous Sediment Urine Present (None Prsent); Bacteria Urine Automated 1+ (Negative)
[2020-01-12 12:53] LABS: Sodium Random Urine 21 mmol/L; Urea Nitrogen, Urine Random 679 mg/dl
--- NOTE | 2020-01-12 13:02 | History & Physical Report ---
Date of Service January 12, 2020 Assessment & Plan (1) Lactic acid acidosis: Pt is COVID +, likely cause WBC elevated UA noted Blood cx pending CT chest with ground glass opacities CTAP neg for acute Started on vanco/zosyn in the ED, will continue Started on dexamethasone in the ED, will continue GFR too low for remdesivir Much improved on BIPAP (2) Syncope: Likely related to acute illness Ddimer + Trop elevated, serials pending ECHO pending (3) SHERYL (acute kidney injury): No prior hx of renal issues Cr 2.7 on admission (4) Hypertension with goal blood pressure less than 140/90: continue home meds Takes aspirin 81mg as prevention, continue (5) Hyperlipidemia: continue home meds (6) DVT prophylaxis: Heparin and SCDs for DVT proph History of Present Illness Primary Care Provider: Esperanza Crook MD 64 y/o M c/o passing out. Pt has felt generally unwell the last few days with cough, congestion, and fever. He was put on prednisone and azithromycin by his PCP and was coming to the hospital today to have a CXR when he passed out in the lobby. He does not remember falling. Pt states that he did not eat anything yet today, but that he ate fine yesterday. He has had some looser stools, but no marcelo diarrhea. Pt denies chest pain, abd pain, n/v, LE pain or swelling. Pt was found to be very tachypneic in the ED. He was put on BIPAP and states he is no longer SOB. He states he feels much better at this time and that his cough is less. Pt's has COVID and is at home ill with this. She has not been hospitalized. Allergies Allergy/AdvReac Type Severity Reaction Status Date / Time No Known Allergies Allergy Verified 01/12/20 10:44 Home Medications Medication Instructions Recorded Confirmed Type aspirin 81 mg tablet,delayed 81 mg PO QAM 10/13/18 01/12/20 History release atorvastatin 10 mg tablet 10 mg PO QPM #90 tab 05/08/19 01/12/20 Rx sildenafil (pulm.hypertension) 20 50 - 100 mg PO DAILY PRN #30 tab 01/01/20 01/12/20 Rx mg tablet albuterol sulfate 90 mcg/actuation 2 puff INHALATION .COMPLEX PRN 01/10/20 01/12/20 Rx aerosol inhaler #8.5 g inhalational spacing device #1 ea 01/10/20 01/10/20 Rx allopurinol 100 mg PO QAM 01/12/20 01/12/20 History amitriptyline 20 mg PO PM 01/12/20 01/12/20 History azithromycin 250 mg PO QAM 01/12/20 01/12/20 History lisinopril 20 mg PO PM 01/12/20 01/12/20 History prednisone 10 mg PO DIRECTED 01/12/20 01/12/20 History Past Med/Surg History Medical History Breast lump Broken ankle Broken collarbone Hyperlipidemia Hypertension with goal blood pressure less than 140/90 Lymphocytic colitis Osteoarthritis, hand Family History Mother Cancer stomach CA Brother Cancer liver CA Denies family history of Ovarian cancer Prostate cancer Myocardial infarction Breast cancer Colorectal cancer Social History (Updated 01/12/20 @ 13:00 by Crystal Do DO) Smoking Status: Never smoker Second Hand Exposure: No; Hx Alcohol Use: Yes Alcohol type: beer Alcohol Intake Frequency Comment: 1-2x per week Hx Substance Use: No marital status: Current Living Situation: Spouse current occupational status: employed current occupation: [employer] Feels Safe at Home: Yes Dental Care, Regularly: Yes Physical Activity Frequency: Does not Exercise Physical Activity Frequency Comment: walking Seatbelt Use: always Do you think of yourself as: straight/heterosexual Review of Systems Review of Systems: Pertinent positives and negatives reviewed in HPI--all others negative Physical Exam Constitutional: WD/WN, vitals as above Eyes: normal visual trevino by confrontation and + anicteric sclerae Neck: normal visual inspection and trachea midline Respiratory: normal respiratory effort; no respiratory distress Auscultation: + crackles (bases); no wheezes Cardiovascular: Rate/Rhythm: regular rate and regular rhythm Gastrointestinal (Abdomen): Inspection/Auscultation: abdomen not distended Percussion/Palpation: abdomen soft; abdomen nontender Musculoskeletal: Head/Neck/Chest: normocephalic and head atraumatic negative for edema, peripheral pulses intact Skin: no rashes, warm and dry Neurologic: awake; not confused Speech / Cognition: normal speech Psychiatric: A+Ox3, euthymic affect Results & Data Results & Data ([facility]) Vital Signs (Past 12 Hours) Vital Signs Temp Pulse Pulse Resp BP BP Pulse Ox 01/12/20 12:13 93 H 34 H 141/90 H 100 01/12/20 11:59 92 H 30 H 100 01/12/20 11:52 107 H 38 H 122/83 95 01/12/20 11:32 36.4 C L 103 H 34 H 100/66 100 01/12/20 10:46 100 01/12/20 10:39 84 24 01/12/20 09:37 120 H 40 H 100/[address] chest: ground glass opacities CTAP severe hepatic steatosis, neg for acute Code Status & VTE Plan Code Status Full code VTE Prophylaxis Plan VTE Prophylaxis will be ordered: Yes PG Care Time/CCT Total # of Minutes Spent Total Time Spent with Patient: Total time spent is greater than 50% in coordination of care (as documented) at patient's floor/unit and/or counseling patient: Coding Level of Care Code 18072 Initial Inpt Care Lvl 3 Diagnoses Lactic acid acidosis E87.2 Syncope R55 SHERYL (acute kidney injury) N17.9 Hypertension with goal blood pressure less than 140/90 I10 Hyperlipidemia E78.5 DVT prophylaxis Z29.9
--- NOTE | 2020-01-12 15:01 | Critical Care Consultation ---
Date of Consultation January 12, 2020 Assessment & Plan (1) COVID-19: Neurologic: Delirium precautions Pulmonary: Maintain O2 sats greater than 92%. We will try to wean him off the BiPAP. Continue supplemental oxygen. I have encouraged him to perform self proning as much as possible. Cardiovascular: No evidence of shock. Mild troponin elevation likely secondary to demand ischemia. Hold lisinopril given SHERYL. Gastrointestinal: Stress ulcer prophylaxis: Protonix daily Transaminitis likely related to COVID-19 infection and dehydration. Will trend LFTs. Will obtain a liver ultrasound if no significant improvement. Renal: He has evidence of SHERYL likely secondary to dehydration. Lactic acidosis improving with fluid boluses. Received fluid boluses in the ER. Continue oral diet. Hold lisinopril given SHERYL. CK is mildly elevated. Infectious disease: Continue Decadron for COVID-19 infection. Not a candidate for remdesivir given his SHERYL and liver failure. Urinalysis with possible UTI. Continue broad-spectrum antibiotics. Will obtain MRSA screen. Hematologic: No significant issues Endocrine: Insulin protocol per ICU VTE prophylaxis: Lovenox CODE STATUS: Full Family at bedside: Not available due to the COVID-19 pandemic Disposition: Remain in ICU I have personally spent 41 minutes of critical care time in the direct management of this patient. This is a life/limb threatening event. This includes time spent evaluating patient, direct bedside care, chart review, placing o rders, interpretation of diagnostic studies, discussion with consultants, patient, and family members, as well as other required patient management activities. This time is exclusive of all separately billable procedures, and teaching time and separate from and in addition to any other critical care service time. Thank you for allowing us to participate in the care of this patient. (2) Lactic acid acidosis: (3) Syncope: (4) Acute kidney injury: (5) Acute liver failure: History of Present Illness Reason for Consultation: COVID-19 pneumonia and lactic acidosis Requesting Physician: Emergency department physician Attending Physician: Emergency department History of Present Illness 64-year-old male with a past medical history of hypertension who has been feeling unwell for the last several days and placed on prednisone/azithromycin by his PCP. He apparently had a syncopal event today. In the ER he had increasing work of breathing and was placed on BiPAP. He was also notably hypotensive and tachycardic. He received several fluid boluses with improvement of blood pressure and heart rate. He had a lactic acidosis of 9.8 on admission that has improved to 7.02 hours later. Creatinine is 2.71. AST is 2929 and ALT is 2007. CRP is 9.79. Total bilirubin of 1.1. INR normal. D-dimer elevated to 5260. Procalcitonin 1.3. He was given a one-time dose of vancomycin and Zosyn in the ER. He also received 10 mg of IV Decadron. He is feeling a lot better now. He is asking for water. He is very thirsty. He is alert, awake and oriented on the BiPAP. He is mildly tachypneic. He does note that he is mildly short of breath. Allergies Allergy/AdvReac Type Severity Reaction Status Date / Time No Known Allergies Allergy Verified 01/12/20 10:44 Home Medications Medication Instructions Recorded Confirmed Type aspirin 81 mg tablet,delayed 81 mg PO QAM 10/13/18 01/12/20 History release atorvastatin 10 mg tablet 10 mg PO QPM #90 tab 05/08/19 01/12/20 Rx sildenafil (pulm.hypertension) 20 50 - 100 mg PO DAILY PRN #30 tab 01/01/20 01/12/20 Rx mg tablet albuterol sulfate 90 mcg/actuation 2 puff INHALATION .COMPLEX PRN 01/10/20 01/12/20 Rx aerosol inhaler #8.5 g inhalational spacing device #1 ea 01/10/20 01/10/20 Rx allopurinol 100 mg PO QAM 01/12/20 01/12/20 History amitriptyline 20 mg PO PM 01/12/20 01/12/20 History azithromycin 250 mg PO QAM 01/12/20 01/12/20 History lisinopril 20 mg PO PM 01/12/20 01/12/20 History prednisone 10 mg PO DIRECTED 01/12/20 01/12/20 History Patient History Medical History (Updated 01/12/20 @ 14:57 by Keith Guillory MD) Acute kidney injury Acute liver failure Breast lump Broken ankle Broken collarbone COVID-19 Hyperlipidemia Hypertension with goal blood pressure less than 140/90 Lymphocytic colitis Osteoarthritis, hand Family History Mother Cancer stomach CA Brother Cancer liver CA Denies family history of Ovarian cancer Prostate cancer Myocardial infarction Breast cancer Colorectal cancer Social History Smoking Status: Never smoker Second Hand Exposure: No; Hx Alcohol Use: Yes Alcohol type: beer Alcohol Intake Frequency Comment: 1-2x per week Hx Substance Use: No marital status: Current Living Situation: Spouse current occupational status: employed current occupation: [employer] Feels Safe at Home: Yes Dental Care, Regularly: Yes Physical Activity Frequency: Does not Exercise Physical Activity Frequency Comment: walking Seatbelt Use: always Do you think of yourself as: straight/heterosexual Review of Systems Review of Systems: All systems reviewed & are unremarkable except as noted in HPI & below Physical Exam Constitutional: WD/WN, vitals as above Eyes: PERRL, conjunctivae normal, anicteric sclerae ENMT: external ear and nose normal, oropharynx normal Neck: normal visual inspection Respiratory: normal respiratory effort Mild crackles bilaterally. Tachypneic. Cardiovascular: RRR, no murmur, no edema Gastrointestinal (Abdomen): normal bowel sounds, soft, nontender, no hepatosp lenomegaly Musculoskeletal: no cyanosis or clubbing, extremities motor strength 5/5 Skin: no rashes, warm and dry Neurologic: PERRL, EOMI, accommodation nl, no face palsy, no dysarthria Psychiatric: A+Ox3, euthymic affect Results & Data Results & Data ([facility]) Vital Signs (Past 12 Hours) Vital Signs Temp Pulse Pulse Resp BP BP Pulse Ox 01/12/20 14:32 89 28 H 124/90 100 01/12/20 14:04 89 31 H 100 01/12/20 13:30 86 30 H 126/86 100 01/12/20 12:13 93 H 34 H 141/90 H 100 01/12/20 11:59 92 H 30 H 100 01/12/20 11:52 107 H 38 H 122/83 95 01/12/20 11:32 97.5 F L 103 H 34 H 100/66 100 01/12/20 10:46 100 01/12/20 10:39 84 24 01/12/20 09:37 120 H 40 H 100/66 I reviewed the vital signs, labs and imaging. CT chest with diffuse groundglass opacities consistent with COVID-19 pneumonia. Coding Level of Care Code Critical Care 1st 30-74 mins Diagnoses COVID-19 U07.1 Lactic acid acidosis E87.2 Syncope R55 Acute kidney injury N17.9 Acute liver failure K72.00 Time Spent (min) 33
[2020-01-12] MEDS ORDERED: VANCOMYCIN HCL 1,000 MG in SODIUM CHLORIDE 0.9% 250 ML IV SCH (17:50)
[2020-01-12] MEDS ORDERED: SILDENAFIL CITRATE 20 MG TABLET PO PRN (17:50)
[2020-01-12] MEDS ORDERED: ICU PROTOCOL FOR HYPERGLYCEMIA PRN (17:50)
[2020-01-12] MEDS ORDERED: ALBUTEROL HFA 8 GM INHALER INH PRN (18:30)
[2020-01-12] MEDS: DEXAMETHASONE SOD PHOSPHATE 6 MG in SYRINGE 0 ML IV SCH (20:22)
[2020-01-12] MEDS: SODIUM CHLORIDE 0.9% 1000ML 1,000 ML IV SCH (20:23)
[2020-01-12] MEDS: lisinopril 20 MG TAB PO SCH (20:23)
[2020-01-12] MEDS: PIPERACILLIN/TAZOBACTAM 3.375 GM in DEXTROSE 5% 100 ML IV SCH (20:23)
[2020-01-12] MEDS: AMITRIPTYLINE HCL 10 MG TAB PO SCH (20:24)
[2020-01-12] MEDS: ATORVASTATIN 10 MG TAB PO SCH (20:24)
[2020-01-12] MEDS: HEPARIN SOD 5,000 UNIT/0.5 ML VIAL SQ SCH (20:25)
[2020-01-12 20:39] LABS: Acetaminophen < 2 ug/ml (10-30); Salicylate < 1.7 mg/dl (2.8-20)
[2020-01-13] MEDS: PIPERACILLIN/TAZOBACTAM 3.375 GM in DEXTROSE 5% 100 ML IV SCH ×3 (01:26→18:48)
[2020-01-13 03:25] LABS: Basophils # (auto) 0.03 K/uL (0-0.2); Basophils % (auto) 0.2 %; Hematocrit (blood only) 43.1 % (42-52); Hemoglobin 14.3 g/dL (14.0-18.0); Immature Granulocytes # (auto) 0.28 K/uL (0.00-0.02); Immature Granulocytes % (auto) 1.8 %; Lymphocytes # (auto) 0.34 K/uL (1.2-3.4); Lymphocytes % (auto) 2.1 %; Mean Corpuscular Hgb Conc 33.2 g/dL (32-36); Mean Corpuscular Volume 90.5 fL (80-100); Mean Platelet Volume 10.1 fL (7.4-10.4); Neutrophils # (auto) 14.51 K/uL (1.4-6.5); Neutrophils % (auto) 90.9 %; Nucleated RBC # (auto) 0.15 K/uL (0-0); Nucleated RBC % (auto) 0.9 %; Platelet Count 154 K/uL (130-400); RDW Coefficient of Variation 13.5 % (11.5-14.5); RDW Standard Deviation 44.6 fL (36.4-46.3); Red Blood Count 4.76 M/uL (4.7-6.1); White Blood Count 15.96 K/uL (4.8-10.8)
[2020-01-13 04:14] LABS: Albumin Level 2.4 gm/dl (3.4-5.0); BUN Creatinine Ratio 39.1 (10-20); Bilirubin Direct 0.5 mg/dl (0-0.2); Calcium 7.3 mg/dl (8.5-10.1); Creatinine Clr Calc Pharmacy 49.3 ml/min; Est GFR (African American) 46.3; Magnesium 2.7 mg/dl (1.8-2.4); Potassium 4.6 mmol/L (3.5-5.1)
[2020-01-13] MEDS ORDERED: VANCOMYCIN HCL 1,250 MG in SODIUM CHLORIDE 0.9% 250 ML IV STA (04:27)
[2020-01-13 04:29] LABS: Bilirubin,Total 1.1 mg/dl (0.2-1); Total Protein 6.1 gm/dl (6.4-8.2)
[2020-01-13] MEDS: SODIUM CHLORIDE 0.9% 1000ML 1,000 ML IV SCH (04:43)
[2020-01-13] MEDS: HEPARIN SOD 5,000 UNIT/0.5 ML VIAL SQ SCH ×3 (04:43→20:29)
[2020-01-13] MEDS ORDERED: hydrALAZINE HCL 20 MG/ML VIAL ONE (06:14)
[2020-01-13] MEDS ORDERED: allopurinoL 100 MG TAB PO SCH (09:00)
--- NOTE | 2020-01-13 14:50 | Electrocardiogram Report ---
Test Reason : Blood Pressure : / mmHG Vent. Rate : 123 BPM Atrial Rate : 123 BPM P-R Int : 140 ms QRS Dur : 104 ms QT Int : 306 ms P-R-T Axes : 042 116 -19 degrees QTc Int : 438 ms Poor data quality, interpretation may be adversely affected Sinus tachycardia Incomplete right bundle branch block Left posterior fascicular block Diffuse ST abnormality, consider ischemia or injury Abnormal ECG No previous ECGs available Confirmed by Zoran Amor ([id number]) on 01/13/2020 8:58:29 AM Referred By: REFERRED SELF Confirmed By:Zoran Amor
[2020-01-13] MEDS: ASPIRIN 81 MG ECTAB PO SCH (18:15)
[2020-01-13] MEDS: DEXAMETHASONE SOD PHOSPHATE 6 MG in SYRINGE 0 ML IV SCH (18:15)
[2020-01-13] MEDS: PANTOprazole 40 MG TAB PO SCH (18:16)
[2020-01-13 18:36] LABS: Phosphorus 4.7 mg/dl (2.5-4.9)
[2020-01-13 19:06] LABS: INR 1.3 (0.9-1.1); Prothrombin Time 13.7 Seconds (9.0-12.0)
[2020-01-13] MEDS: AMITRIPTYLINE HCL 10 MG TAB PO SCH (20:29)
[2020-01-13] MEDS: DOXYCYCLINE HYCLATE 100 MG in DEXTROSE 5% 100 ML IV SCH (23:56)
[2020-01-14] MEDS: HEPARIN SOD 5,000 UNIT/0.5 ML VIAL SQ SCH (04:55)
[2020-01-14 05:29] LABS: Basophils # (auto) 0.01 K/uL (0-0.2); Basophils % (auto) 0.1 %; Hematocrit (blood only) 41.7 % (42-52); Immature Granulocytes # (auto) 0.28 K/uL (0.00-0.02); Immature Granulocytes % (auto) 1.5 %; Lymphocytes # (auto) 0.88 K/uL (1.2-3.4); Lymphocytes % (auto) 4.6 %; Mean Corpuscular Hemoglobin 30.4 pg (25-34); Mean Corpuscular Hgb Conc 33.6 g/dL (32-36); Mean Corpuscular Volume 90.5 fL (80-100); Mean Platelet Volume 10.9 fL (7.4-10.4); Monocytes # (auto) 0.26 K/uL (0.11-0.59); Monocytes % (auto) 1.4 %; Neutrophils # (auto) 17.72 K/uL (1.4-6.5); Neutrophils % (auto) 92.4 %; Nucleated RBC # (auto) 0.11 K/uL (0-0); Nucleated RBC % (auto) 0.6 %; Platelet Count 130 K/uL (130-400); RDW Coefficient of Variation 13.5 % (11.5-14.5); RDW Standard Deviation 44.5 fL (36.4-46.3); Red Blood Count 4.61 M/uL (4.7-6.1); White Blood Count 19.15 K/uL (4.8-10.8)
[2020-01-14 05:57] LABS: Albumin Level 2.4 gm/dl (3.4-5.0); BUN Creatinine Ratio 41.2 (10-20); Bilirubin Direct 0.3 mg/dl (0-0.2); Calcium 7.6 mg/dl (8.5-10.1); Creatinine Clr Calc Pharmacy 74.3 ml/min; Est GFR (Non-African American) 66.4; Potassium 4.5 mmol/L (3.5-5.1)
[2020-01-14 06:13] LABS: Albumin Globulin Ratio 0.7 (0.9-2); Bilirubin,Total 1.1 mg/dl (0.2-1); C Reactive Protein 4.8 mg/dl (0-0.29); Globulin 3.3 gm/dl (2.5-4.0); Phosphorus 2.6 mg/dl (2.5-4.9); Total Protein 5.7 gm/dl (6.4-8.2)
[2020-01-14] MEDS: ASPIRIN 81 MG ECTAB PO SCH (09:20)
[2020-01-14] MEDS: dexAMETHasone 4 MG TAB PO SCH (09:20)
[2020-01-14] MEDS: cefTRIAXone SODIUM 2,000 MG in DEXTROSE 5% 50 ML IV SCH (09:21)
[2020-01-14] MEDS: PANTOprazole 40 MG TAB PO SCH (09:21)
[2020-01-14] MEDS ORDERED: hydrALAZINE HCL 20 MG/ML VIAL IV ONE (09:43)
[2020-01-14] MEDS ORDERED: FUROSEMIDE 40 MG in SYRINGE 0 ML IV ONE (10:00)
--- NOTE | 2020-01-14 10:21 | Critical Care Progress Note ---
Date of Service January 14, 2020 Assessment & Plan (1) COVID-19: Neurologic: Delirium precautions Pulmonary: Continue to prone as much as possible. Encouraged him to ambulate in the room and sit up in the bed. Continue Decadron for the Covid pneumonitis. Continue doxycycline and Rocephin for possible atypical bacterial pneumonia. We will give him a dose of Lasix today as his proBNP was elevated. Cardiovascular: No evidence of shock. I am giving him a dose of hydralazine and Lasix. An echocardiogram has been ordered. We will restart antihypertensives if his blood pressure continues to creep upwards. Gastrointestinal: Stress ulcer prophylaxis: Protonix daily Transaminitis likely related to COVID-19 infection and dehydration. LFTs are improving. Renal: His SHERYL continues to improve. Will restart lisinopril tomorrow. Infectious disease: Continue Decadron for COVID-19 pneumonitis. Not a candidate for remdesivir given his SHERYL and liver failure. Pro-Clint is trending down. Urine cultures with less than 1000 colonies. Possibility of atypical pneumonia remains. Hematologic: No significant issues Endocrine: Insulin protocol per ICU VTE prophylaxis: We will switch heparin 3 times daily to Lovenox daily. CODE STATUS: Full Family at bedside: Not available due to the COVID-19 pandemic Disposition: Remain in ICU due to profound hypoxemia. I have personally spent 33 minutes of critical care time in the direct management of this patient. This is a life/limb threatening event. This includes time spent evaluating patient, direct bedside care, chart review, placing orders, interpretation of diagnostic studies, discussion with consultants, patient, and family members, as well as other required patient management activities. This time is exclusive of all separately billable procedures, and teaching time and separate from and in addition to any other critical care service time. Thank you for allowing us to participate in the care of this patient. (2) Lactic acid acidosis: (3) Syncope: (4) Acute kidney injury: (5) Acute liver failure: Admission and Anticipated Discharge Date Admission Date: January 12, 2020 Subjective Patient is self proning today. He notes that he had a small bout of hemoptysis yesterday. No further hemoptysis today. He has mild dyspnea at rest. He is requiring 60 L of oxygen and had a percent FiO2. He denies any chest pain. No fevers or chills. Review of Systems Review of Systems: All systems reviewed & are unremarkable except as noted in HPI & below Physical Exam Constitutional: WD/WN, vitals as above Eyes: PERRL, conjunctivae normal, anicteric sclerae ENMT: external ear and nose normal, oropharynx normal Neck: normal visual inspection Respiratory: normal respiratory effort Mild crackles bilaterally. Tachypneic. Cardiovascular: RRR, no murmur, no edema Gastrointestinal (Abdomen): normal bowel sounds, soft, nontender, no hepatosplenomegaly Musculoskeletal: no cyanosis or clubbing, extremities motor strength 5/5 Skin: no rashes, warm and dry Neurologic: PERRL, EOMI, accommodation nl, no face palsy, no dysarthria Psychiatric: A+Ox3, euthymic affect Results & Data Results & Data ([facility]) Vital Signs (Past 12 Hours) Vital Signs Temp Pulse Pulse Resp BP Pulse Ox 01/14/20 08:05 62 24 89 L 01/14/20 06:00 69 24 96 01/14/20 05:30 21 94 01/14/20 05:11 62 26 H 92 01/14/20 05:00 80 21 164/99 H 92 01/14/20 04:30 30 H 89 L 01/14/20 04:00 98.1 F 58 L 31 H 93 01/14/20 03:30 22 90 01/14/20 03:00 63 22 91 01/14/20 02:35 74 24 89 L 01/14/20 02:30 72 30 H 90 01/14/20 02:00 65 32 H 141/82 H 88 L 01/14/20 01:30 61 28 H 155/95 H 90 01/14/20 01:00 72 22 96 01/14/20 00:30 60 26 H 151/102 H 96 01/14/20 00:00 97.9 F 60 27 H 94 01/13/20 23:30 69 30 H 142/97 H 91 01/13/20 23:00 72 17 92 01/13/20 22:30 61 18 137/93 97 I reviewed the vital signs, labs and imaging Coding Level of Care Code Critical Care 1st 30-74 mins Diagnoses COVID-19 U07.1 Lactic acid acidosis E87.2 Syncope R55 Acute kidney injury N17.9 Acute liver failure K72.00 Hepatic coma status: without hepatic coma Time Spent (min) 33 (1) Acute liver failure Hepatic coma status: without hepatic coma Qualified Code(s): K72.00 - Acute and subacute hepatic failure without coma
[2020-01-14] MEDS: DOXYCYCLINE HYCLATE 100 MG in DEXTROSE 5% 100 ML IV SCH ×2 (12:43→23:25)
[2020-01-14] MEDS: ENOXAPARIN INJ 40 MG/0.4 ML SYR SQ SCH (12:43)
--- NOTE | 2020-01-14 15:47 | Hospitalist Progress Note ---
Date of Service January 14, 2020 Assessment & Plan (1) Pneumonia due to COVID-19 virus: In ICU on dexamethasone and CAP abx. - Still on high flow with no respiratory reserve. - Further supportive care per ICU (2) Abnormal hepatitis serology: AST/ALT were 2900/2000 on admission. - Presently AST/ALT are 500/1300, so improving. - Supportive care (3) Syncope: Likely related to acute illness. (4) SHERYL (acute kidney injury): No prior hx of renal issues. Cr 2.7 on admission. - Cr. now 1.15 (5) Hypertension with goal blood pressure less than 140/90: BP is 150/90 today. - Continue home meds per ICU (6) Hyperlipidemia: - Continue home statin (7) DVT prophylaxis: Lovenox 40 mg SQ QAM Admission and Anticipated Discharge Date Admission Date: January 12, 2020 Subjective Still very short of breath. Desats with any movement. Reports no fevers/chills, chest pain, abdominal pain, nausea, or vomiting. Physical Exam Constitutional: WD/WN, vitals as above Eyes: EOM intact bilaterally; no conjunctival abnormality ENMT: external ear and nose normal, oropharynx normal Neck: trachea midline, no thyromegaly normal visual inspection Respiratory: + labored breathing; no respiratory distress Cardiovascular: RRR, no murmur, no edema Gastrointestinal (Abdomen): Inspection/Auscultation: abdomen normal to inspection; abdomen not distended Musculoskeletal: no cyanosis or clubbing, extremities motor strength 5/5 Skin: no rashes, warm and dry Neurologic: moves all extremities and awake Psychiatric: Orientation: alert, oriented to person and cooperative Results & Data Results & Data ([facility]) Vital Signs (Past 12 Hours) Vital Signs Temp Pulse Pulse Resp BP Pulse Ox 01/14/20 12:00 77 29 H 93 01/14/20 11:45 72 18 90 01/14/20 11:31 66 24 90 01/14/20 11:30 67 27 H 96 01/14/20 11:15 73 10 L 92 01/14/20 11:00 68 34 H 84 L 01/14/20 10:45 67 19 89 L 01/14/20 10:30 74 27 H 91 01/14/20 10:19 66 20 152/99 H 90 01/14/20 10:15 70 16 93 01/14/20 10:00 37 C 67 34 H 88 L 01/14/20 09:45 81 28 H 85 L 01/14/20 09:30 80 27 H 90 01/14/20 09:19 80 22 158/104 H 90 01/14/20 09:15 65 30 H 89 L 01/14/20 09:00 75 18 87 L 01/14/20 08:45 60 35 H 79 L 01/14/20 08:30 76 22 85 L 01/14/20 08:22 62 36 H 153/95 H 86 L 01/14/20 08:19 57 L 23 171/105 H 96 01/14/20 08:15 66 17 85 L 01/14/20 08:05 62 24 89 L 01/14/20 08:00 70 24 87 L 01/14/20 07:45 56 L 30 H 89 L 01/14/20 07:30 63 26 H 88 L 01/14/20 07:19 58 L 28 H 164/103 H 88 L 01/14/20 07:15 60 26 H 89 L 01/14/20 07:00 56 L 29 H 90 01/14/20 06:45 57 L 29 H 91 01/14/20 06:30 60 31 H 94 01/14/20 06:19 62 25 H 165/98 H 96 01/14/20 06:15 62 26 H 96 01/14/20 06:00 69 24 96 01/14/20 05:30 21 94 01/14/20 05:11 62 26 H 92 01/14/20 05:00 80 21 164/99 H 92 01/14/20 04:30 30 H 89 L 01/14/20 04:00 36.7 C 58 L 31 H 93 PG Care Time/CCT Total # of Minutes Spent Total Time Spent with Patient: Total time spent is greater than 50% in coordination of care (as documented) at patient's floor/unit and/or counseling patient: Coding Level of Care Code 43131 Subseq Hosp Care Lvl 3 Diagnoses Pneumonia due to COVID-19 virus U07.1; J12.89 Abnormal hepatitis serology R76.8 Syncope R55 SHERYL (acute kidney injury) N17.9 Hypertension with goal blood pressure less than 140/90 I10 Hyperlipidemia E78.5 DVT prophylaxis Z29.9
[2020-01-14] MEDS: AMITRIPTYLINE HCL 10 MG TAB PO SCH (19:32)
[2020-01-15 04:45] LABS: Basophils # (auto) 0.02 K/uL (0-0.2); Basophils % (auto) 0.1 %; Hematocrit (blood only) 50.4 % (42-52); Hemoglobin 16.7 g/dL (14.0-18.0); Immature Granulocytes # (auto) 0.62 K/uL (0.00-0.02); Immature Granulocytes % (auto) 2.9 %; Lymphocytes # (auto) 0.55 K/uL (1.2-3.4); Lymphocytes % (auto) 2.6 %; Mean Corpuscular Hemoglobin 30.2 pg (25-34); Mean Corpuscular Hgb Conc 33.1 g/dL (32-36); Mean Corpuscular Volume 91.1 fL (80-100); Mean Platelet Volume 11.8 fL (7.4-10.4); Monocytes # (auto) 0.92 K/uL (0.11-0.59); Monocytes % (auto) 4.4 %; Neutrophils # (auto) 18.94 K/uL (1.4-6.5); Nucleated RBC # (auto) 0.09 K/uL (0-0); Nucleated RBC % (auto) 0.4 %; Platelet Count 156 K/uL (130-400); RDW Coefficient of Variation 13.5 % (11.5-14.5); RDW Standard Deviation 44.3 fL (36.4-46.3); Red Blood Count 5.53 M/uL (4.7-6.1); White Blood Count 21.05 K/uL (4.8-10.8)
[2020-01-15 05:30] LABS: Magnesium 3.2 mg/dl (1.8-2.4)
[2020-01-15 05:35] LABS: Albumin Level 2.8 gm/dl (3.4-5.0); BUN Creatinine Ratio 35.6 (10-20); Calcium 8.4 mg/dl (8.5-10.1); Creatinine Clr Calc Pharmacy 64.9 ml/min; Est GFR (African American) 65.2; Est GFR (Non-African American) 56.2; Potassium 5.1 mmol/L (3.5-5.1)
[2020-01-15 05:38] LABS: Albumin Globulin Ratio 0.7 (0.9-2); Bilirubin,Total 1.1 mg/dl (0.2-1); Globulin 4.3 gm/dl (2.5-4.0); Total Protein 7.1 gm/dl (6.4-8.2)
[2020-01-15] MEDS ORDERED: hydrALAZINE HCL 20 MG/ML VIAL IV STA (06:24)
--- NOTE | 2020-01-15 08:32 | Critical Care Progress Note ---
Date of Service January 15, 2020 Assessment & Plan (1) COVID-19: Neurologic: Delirium precautions Pulmonary: Continue to prone as much as possible. Encouraged him to ambulate in the room and sit up in the bed. Continue Decadron for the Covid pneumonitis. Continue doxycycline and Rocephin for possible atypical bacterial pneumonia. Cardiovascular: No evidence of shock. Restart lisinopril. a Gastrointestinal: Stress ulcer prophylaxis: Protonix daily Transaminitis likely related to COVID-19 infection and dehydration. LFTs are improving. Renal: SHERYL: Resolved Infectious disease: Continue Decadron for COVID-19 pneumonitis. Not a candidate for remdesivir given his SHERYL and liver failure. Pro-Clint is trending down. Urine cultures with less than 1000 colonies. Possibility of atypical pneumonia remains. Hematologic: No significant issues Endocrine: Insulin protocol per ICU VTE prophylaxis: We will switch heparin 3 times daily to Lovenox daily. CODE STATUS: Full Family at bedside: Not available due to the COVID-19 pandemic Disposition: Remain in ICU due to profound hypoxemia. (2) Lactic acid acidosis: (3) Syncope: (4) Acute kidney injury: (5) Acute liver failure: Admission and Anticipated Discharge Date Admission Date: January 12, 2020 Supervising Physician Co-Signing Physician Notes Patient was discussed in multidisciplinary rounds I have personally spent 60 minutes of critical care time in the direct management of this patient. This is a life/limb threatening event. This includes time spent evaluating patient, direct bedside care, chart review, placing orders, interpretation of diagnostic studies, discussion with consultants, patient, and/or family members regarding treatment decisions, as well as other required patient management activities. This time is exclusive of all separately billable procedures, and teaching time and separate from and in addition to any other critical care service time. Subjective Still very short of breath. Desats with any movement. Reports no fevers/chills, chest pain, abdominal pain, nausea, or vomiting. Review of Systems Review of Systems: As per the HPI Physical Exam Physical Exam: General: Alert. nontoxic. Psych: Able to pass Mini-Mental status, has ability to consent at this time Skin: Warm, dry, Head: Atraumatic Ears, nose, mouth and throat: airway patent Cardiovascular: Normal peripheral perfusion Respiratory: Tachypnea, improves with pronation Gastrointestinal: Non distended Musculoskeletal: No deformity Results & Data Results & Data ([facility]) Vital Signs (Past 12 Hours) Vital Signs Temp Pulse Pulse Resp BP Pulse Ox 01/15/20 07:58 74 20 91 01/15/20 06:00 54 L 23 183/103 H 94 01/15/20 05:00 61 22 90 01/15/20 04:02 36.6 C 72 30 H 165/100 H 90 01/15/20 03:35 77 26 H 88 L 01/15/20 03:00 59 L 26 H 93 01/15/20 02:00 56 L 29 H 90 01/15/20 01:00 57 L 26 H 167/98 H 90 01/15/20 00:00 36.8 C 57 L 28 H 164/100 H 92 01/14/20 23:00 59 L 23 144/99 H 94 01/14/20 22:40 70 25 H 92 01/14/20 22:00 69 25 H 164/99 H 90 01/14/20 21:00 63 31 H 153/94 H 90 01/14/20 20:35 61 24 90 Laboratory Results 01/15/20 01/15/20 01/15/20 Range/Units 09:05 04:17 04:17 WBC (4.8-10.8) K/uL RBC (4.7-6.1) M/uL Hgb (14.0-18.0) g/dL Hct (42-52) % MCV (80-100) fL MCH (25-34) pg MCHC (32-36) g/dL RDW Std Deviation (36.4-46.3) fL RDW Coeff of Griffin (11.5-14.5) % Plt Count (130-400) K/uL MPV (7.4-10.4) fL Immature Gran % (Auto) % Neut % (Auto) % Lymph % (Auto) % [place] % (Auto) % Eos % (Auto) % Baso % (Auto) % Neut # (Auto) (1.4-6.5) K/uL Lymph # (Auto) (1.2-3.4) K/uL [place] # (Auto) (0.11-0.59) K/uL Eos # (Auto) (0-0.5) K/uL Baso # (Auto) (0-0.2) K/uL Immature Gran # (Auto) (0.00-0.02) K/uL Absolute Nucleated RBC (0-0) K/uL Nucleated RBC % (auto) % Sample Site L Radial POC pH 7.50 H (7.35-7.45) POC pCO2 25 L (35-46) mmHg POC pO2 43 L (80-95) mmHg POC HCO3 19 (19-24) jennifer/L POC Total CO2 20 L (24-31) mmol/L POC Base Excess -4.0 (-9-1.8) jennifer/L POC ABG O2 Sat 84.0 L (90-95) % Alphonso Test Pass O2 Delivery Device Hi Santosh Can POC FiO2 100 % Sodium 141 (136-145) mmol/L Potassium 5.1 (3.5-5.1) mmol/L Chloride 111 H (98-107) mmol/L Carbon Dioxide 20 L (21-32) mmol/L Anion Gap 10.0 (3-11) BUN 47 H (7-18) mg/dl Creatinine 1.32 (0.6-1.4) mg/dl Est Cr Clr Drug Dosing 64.9 ml/min Est GFR ( Amer) 65.2 Est GFR (Non-Af Amer) 56.2 BUN/Creatinine Ratio 35.6 H (10-20) Glucose 114 H (70-99) mg/dl POC Glucose (70-99) mg/dl Calcium 8.4 L (8.5-10.1) mg/dl Phosphorus 4.0 D (2.5-4.9) mg/dl Magnesium 3.2 H (1.8-2.4) mg/dl Total Bilirubin 1.1 H (0.2-1) mg/dl AST 232 H (15-37) U/L ALT 987 H (12-78) U/L Alkaline Phosphatase 198 H (45-117) U/L Total Protein 7.1 D (6.4-8.2) gm/dl Albumin 2.8 L (3.4-5.0) gm/dl Globulin 4.3 H (2.5-4.0) gm/dl Albumin/Globulin Ratio 0.7 L (0.9-2) 01/15/20 01/14/20 01/13/20 Range/Units 04:17 19:43 06:23 WBC 21.05 H (4.8-10.8) K/uL RBC 5.53 (4.7-6.1) M/uL Hgb 16.7 (14.0-18.0) g/dL Hct 50.4 (42-52) % MCV 91.1 (80-100) fL MCH 30.2 (25-34) pg MCHC 33.1 (32-36) g/dL RDW Std Deviation 44.3 (36.4-46.3) fL RDW Coeff of Griffin 13.5 (11.5-14.5) % Plt Count 156 (130-400) K/uL MPV 11.8 H (7.4-10.4) fL Immature Gran % (Auto) 2.9 % Neut % (Auto) 90.0 % Lymph % (Auto) 2.6 % [place] % (Auto) 4.4 % Eos % (Auto) 0.0 % Baso % (Auto) 0.1 % Neut # (Auto) 18.94 H (1.4-6.5) K/uL Lymph # (Auto) 0.55 L (1.2-3.4) K/uL [place] # (Auto) 0.92 H (0.11-0.59) K/uL Eos # (Auto) 0.00 (0-0.5) K/uL Baso # (Auto) 0.02 (0-0.2) K/uL Immature Gran # (Auto) 0.62 H (0.00-0.02) K/uL Absolute Nucleated RBC 0.09 H (0-0) K/uL Nucleated RBC % (auto) 0.4 % Sample Site POC pH (7.35-7.45) POC pCO2 (35-46) mmHg POC pO2 (80-95) mmHg POC HCO3 (19-24) jennifer/L POC Total CO2 (24-31) mmol/L POC Base Excess (-9-1.8) jennifer/L POC ABG O2 Sat (90-95) % Alphonso Test O2 Delivery Device POC FiO2 % Sodium (136-145) mmol/L Potassium (3.5-5.1) mmol/L Chloride (98-107) mmol/L Carbon Dioxide (21-32) mmol/L Anion Gap (3-11) BUN (7-18) mg/dl Creatinine (0.6-1.4) mg/dl Est Cr Clr Drug Dosing ml/min Est GFR ( Amer) Est GFR (Non-Af Amer) BUN/Creatinine Ratio (10-20) Glucose (70-99) mg/dl POC Glucose 128 H 160 H (70-99) mg/dl Calcium (8.5-10.1) mg/dl Phosphorus (2.5-4.9) mg/dl Magnesium (1.8-2.4) mg/dl Total Bilirubin (0.2-1) mg/dl AST (15-37) U/L ALT (12-78) U/L Alkaline Phosphatase (45-117) U/L Total Protein (6.4-8.2) gm/dl Albumin (3.4-5.0) gm/dl Globulin (2.5-4.0) gm/dl Albumin/Globulin Ratio (0.9-2) Coding Level of Care Code Critical Care 1st 30-74 mins Diagnoses COVID-19 U07.1 Lactic acid acidosis E87.2 Syncope R55 Acute kidney injury N17.9 Acute liver failure K72.00 Hepatic coma status: without hepatic coma (1) Acute liver failure Hepatic coma status: without hepatic coma Qualified Code(s): K72.00 - Acute and subacute hepatic failure without coma
[2020-01-15] MEDS: PANTOprazole 40 MG TAB PO SCH (08:38)
[2020-01-15] MEDS: ASPIRIN 81 MG ECTAB PO SCH (08:38)
[2020-01-15] MEDS: ENOXAPARIN INJ 40 MG/0.4 ML SYR SQ SCH (08:38)
[2020-01-15 09:27] LABS: iSTAT Allen Test Pass; iSTAT Arterial Blood Gas HCO3 19 meg/L (19-24); iSTAT Arterial Blood Gas pCO2 25 mmHg (35-46); iSTAT Arterial Blood Gas pO2 43 mmHg (80-95); iSTAT Carbon Dioxide 20 mmol/L (24-31); iSTAT FiO2 100 %; iSTAT Site L Radial
[2020-01-15] MEDS: DOXYCYCLINE HYCLATE 100 MG in DEXTROSE 5% 100 ML IV SCH ×2 (11:23→23:38)
[2020-01-15] MEDS: dexAMETHasone 4 MG TAB PO SCH (11:23)
[2020-01-15] MEDS: cefTRIAXone SODIUM 2,000 MG in DEXTROSE 5% 50 ML IV SCH (11:24)
--- NOTE | 2020-01-15 16:33 | Hospitalist Progress Note ---
Date of Service January 15, 2020 Assessment & Plan (1) Pneumonia due to COVID-19 virus: In ICU on dexamethasone and CAP abx. - Still on high flow with no respiratory reserve. - Further supportive care per ICU -> No major improvement today. (2) Abnormal hepatitis serology: AST/ALT were 2900/2000 on admission. - Presently AST/ALT are 500/1300, so improving. - Supportive care (3) Syncope: Likely related to acute illness. (4) SHERYL (acute kidney injury): No prior hx of renal issues. Cr 2.7 on admission. - Cr. now 1.3 (5) Hypertension with goal blood pressure less than 140/90: BP is 150/90 today. - Continue home meds per ICU (6) Hyperlipidemia: - Continue home statin (7) DVT prophylaxis: Lovenox 40 mg SQ QAM Admission and Anticipated Discharge Date Admission Date: January 12, 2020 Subjective No major change in shortness of breath. Significant with any movement. Switching between BiPap or high-flow. Physical Exam Constitutional: WD/WN, vitals as above Eyes: EOM intact bilaterally; no conjunctival abnormality ENMT: external ear and nose normal, oropharynx normal Neck: trachea midline, no thyromegaly normal visual inspection Respiratory: + labored breathing; no respiratory distress Cardiovascular: RRR, no murmur, no edema Gastrointestinal (Abdomen): Inspection/Auscultation: abdomen normal to inspection; abdomen not distended Musculoskeletal: no cyanosis or clubbing, extremities motor strength 5/5 Skin: no rashes, warm and dry Neurologic: moves all extremities and awake Psychiatric: Orientation: alert, oriented to person and cooperative Results & Data Results & Data ([facility]) Vital Signs (Past 12 Hours) Vital Signs Pulse Pulse Pulse Resp BP Pulse Ox 01/15/20 15:50 60 25 H 92 01/15/20 13:47 59 L 27 H 97 01/15/20 10:49 60 25 H 92 01/15/20 08:00 63 01/15/20 07:58 74 20 91 01/15/20 06:00 54 L 23 183/103 H 94 01/15/20 05:00 61 22 90 PG Care Time/CCT Total # of Minutes Spent Total Time Spent with Patient: Total time spent is greater than 50% in coordination of care (as documented) at patient's floor/unit and/or counseling patient: Coding Level of Care Code 77909 Subseq Hosp Care Lvl 2 Diagnoses Pneumonia due to COVID-19 virus U07.1; J12.89 Abnormal hepatitis serology R76.8 Syncope R55 SHERYL (acute kidney injury) N17.9 Hypertension with goal blood pressure less than 140/90 I10 Hyperlipidemia E78.5 DVT prophylaxis Z29.9
[2020-01-15] MEDS: AMITRIPTYLINE HCL 10 MG TAB PO SCH (20:56)
[2020-01-15] MEDS: lisinopril 20 MG TAB PO SCH (20:57)
[2020-01-16 05:40] LABS: Basophils # (auto) 0.02 K/uL (0-0.2); Basophils % (auto) 0.1 %; Eosinophils # (auto) 0.01 K/uL (0-0.5); Hematocrit (blood only) 49.7 % (42-52); Hemoglobin 16.2 g/dL (14.0-18.0); Immature Granulocytes # (auto) 0.46 K/uL (0.00-0.02); Immature Granulocytes % (auto) 2.3 %; Lymphocytes # (auto) 0.45 K/uL (1.2-3.4); Lymphocytes % (auto) 2.2 %; Mean Corpuscular Hemoglobin 29.7 pg (25-34); Mean Corpuscular Hgb Conc 32.6 g/dL (32-36); Mean Platelet Volume 10.8 fL (7.4-10.4); Monocytes # (auto) 0.52 K/uL (0.11-0.59); Monocytes % (auto) 2.5 %; Neutrophils # (auto) 18.95 K/uL (1.4-6.5); Neutrophils % (auto) 92.9 %; Platelet Count 132 K/uL (130-400); RDW Coefficient of Variation 13.8 % (11.5-14.5); RDW Standard Deviation 44.3 fL (36.4-46.3); Red Blood Count 5.46 M/uL (4.7-6.1); White Blood Count 20.41 K/uL (4.8-10.8)
[2020-01-16 06:06] LABS: Albumin Level 2.5 gm/dl (3.4-5.0); BUN Creatinine Ratio 36.3 (10-20); Calcium 8.2 mg/dl (8.5-10.1); Creatinine Clr Calc Pharmacy 76.9 ml/min; Est GFR (Non-African American) 76.8; Magnesium 3.2 mg/dl (1.8-2.4); Potassium 5.1 mmol/L (3.5-5.1)
[2020-01-16 06:23] LABS: Albumin Globulin Ratio 0.6 (0.9-2); Bilirubin,Total 1.1 mg/dl (0.2-1); Total Protein 6.5 gm/dl (6.4-8.2)
[2020-01-16] MEDS: cefTRIAXone SODIUM 2,000 MG in DEXTROSE 5% 50 ML IV SCH (07:58)
[2020-01-16] MEDS: dexAMETHasone 4 MG TAB PO SCH (07:59)
[2020-01-16] MEDS: ENOXAPARIN INJ 40 MG/0.4 ML SYR SQ SCH (07:59)
[2020-01-16] MEDS: ASPIRIN 81 MG ECTAB PO SCH (07:59)
[2020-01-16] MEDS: PANTOprazole 40 MG TAB PO SCH (07:59)
[2020-01-16] MEDS ORDERED: REMDESIVIR 200 MG in SODIUM CHLORIDE 0.9% 210 ML IV ONE (09:30)
[2020-01-16] MEDS: DOXYCYCLINE HYCLATE 100 MG in DEXTROSE 5% 100 ML IV SCH (10:37)
--- NOTE | 2020-01-16 11:04 | Critical Care Progress Note ---
Date of Service January 16, 2020 Assessment & Plan (1) COVID-19: Neurologic: Has capacity at this time -If unable to consent would prefer make decisions Pulmonary: Severe hypoxic respiratory failure: Acute: Secondary to COVID-19 -Discussed with hospitalist team since he is worsening we will give remdesivir -Long discussion with patient as he did not want intubation at this time. If he does not significantly improve in the next 6 hours we will proceed with intubation and mechanical ventilation he is not tolerating high flow and BiPAP he still is requiring pronation -If we proceed with intubation we will immediately proceed with pronation as well -Converting Decadron to IV Cardiovascular: On lisinopril for hypertension Gastrointestinal: Stress ulcer prophylaxis: Protonix daily Transaminitis likely related to COVID-19 infection and dehydration. ALT 553 AST 99 -Given improvement he is meeting guidelines for remdesivir. Renal: SHERYL: Resolved Infectious disease: Continue Decadron for COVID-19 pneumonitis. -Day 3 of Rocephin and doxycycline -Negative MRSA swab, Legionella antigen pending -[employer] Investigations testing not performed we will continue with 7 days treatment in total of Rocephin and doxycycline Hematologic: DVT prophylaxis: Lovenox Endocrine: Insulin protocol per ICU CODE STATUS: Full Family at bedside: Not available due to the COVID-19 pandemic Disposition: Remain in ICU due to profound hypoxemia. (2) Lactic acid acidosis: (3) Syncope: (4) Acute kidney injury: (5) Acute liver failure: Admission and Anticipated Discharge Date Admission Date: January 12, 2020 Supervising Physician Co-Signing Physician Notes Patient was discussed in multidisciplinary rounds I have personally spent 60 minutes of critical care time in the direct management of this patient. This is a life/limb threatening event. This includes time spent evaluating patient, direct bedside care, chart review, placing orders, interpretation of diagnostic studies, discussion with consultants, patient, and/or family members regarding treatment decisions, as well as other required patient management activities. This time is exclusive of all separately billable procedures, and teaching time and separate from and in addition to any other critical care service time. Subjective Patient was seen and examined, feels better compared to yesterday however he is now on positive pressure noninvasive ventilation. With that he is able to speak mainly in full sentences however when he is not on high flow he is experiencing pretty significant shortness of breath. He denies chest pain or abdominal pain. Review of Systems Review of Systems: All systems reviewed & are unremarkable except as noted in HPI & below Physical Exam Physical Exam: General: Alert. nontoxic. Psych: Able to pass Mini-Mental status, has ability to consent at this time Skin: Warm, dry, Head: Atraumatic Ears, nose, mouth and throat: airway patent Cardiovascular: Normal peripheral perfusion Respiratory: Tachypnea, improves with pronation, speaking in full sentences with BiPAP, significant respiratory distress on high flow Gastrointestinal: Non distended Musculoskeletal: No deformity Results & Data Results & Data ([facility]) Vital Signs (Past 12 Hours) Vital Signs Temp Pulse Pulse Resp BP Pulse Ox 01/16/20 10:50 65 30 H 87 L 01/16/20 09:06 36.5 C 01/16/20 09:00 62 24 96 01/16/20 08:45 61 31 H 148/93 H 96 01/16/20 08:41 77 26 H 96 01/16/20 08:00 62 25 H 94 01/16/20 07:24 69 23 127/96 89 L 01/16/20 07:00 55 L 26 H 94 01/16/20 06:24 54 L 27 H 150/88 H 92 01/16/20 06:00 58 L 26 H 94 01/16/20 05:24 56 L 25 H 144/102 H 94 01/16/20 05:00 56 L 27 H 93 01/16/20 04:25 56 L 28 H 145/110 H 93 01/16/20 04:00 36.7 C 55 L 26 H 96 01/16/20 03:24 58 L 27 H 158/99 H 92 01/16/20 03:00 54 L 23 91 01/16/20 02:24 53 L 26 H 160/93 H 91 01/16/20 02:00 57 L 30 H 92 01/16/20 01:42 59 L 22 94 01/16/20 01:24 55 L 26 H 138/98 89 L 01/16/20 01:00 55 L 24 92 01/16/20 00:23 54 L 27 H 156/88 H 91 01/16/20 00:00 36.9 C 56 L 27 H 91 01/15/20 23:24 58 L 32 H 136/86 92 01/15/20 23:07 56 L 28 H 93 01/15/20 23:00 54 L 26 H 92 Laboratory Results 01/16/20 01/16/20 Range/Units 04:48 04:48 WBC 20.41 H (4.8-10.8) K/uL RBC 5.46 (4.7-6.1) M/uL Hgb 16.2 (14.0-18.0) g/dL Hct 49.7 (42-52) % MCV 91.0 (80-100) fL MCH 29.7 (25-34) pg MCHC 32.6 (32-36) g/dL RDW Std Deviation 44.3 (36.4-46.3) fL RDW Coeff of Griffin 13.8 (11.5-14.5) % Plt Count 132 (130-400) K/uL MPV 10.8 H (7.4-10.4) fL Immature Gran % (Auto) 2.3 % Neut % (Auto) 92.9 % Lymph % (Auto) 2.2 % [place] % (Auto) 2.5 % Eos % (Auto) 0.0 % Baso % (Auto) 0.1 % Neut # (Auto) 18.95 H (1.4-6.5) K/uL Lymph # (Auto) 0.45 L (1.2-3.4) K/uL [place] # (Auto) 0.52 (0.11-0.59) K/uL Eos # (Auto) 0.01 (0-0.5) K/uL Baso # (Auto) 0.02 (0-0.2) K/uL Immature Gran # (Auto) 0.46 H (0.00-0.02) K/uL Sodium 138 (136-145) mmol/L Potassium 5.1 (3.5-5.1) mmol/L Chloride 107 (98-107) mmol/L Carbon Dioxide 27 (21-32) mmol/L Anion Gap 4.0 (3-11) BUN 37 H (7-18) mg/dl Creatinine 1.02 (0.6-1.4) mg/dl Est Cr Clr Drug Dosing 76.9 ml/min Est GFR ( Amer) 89.0 Est GFR (Non-Af Amer) 76.8 BUN/Creatinine Ratio 36.3 H (10-20) Glucose 94 (70-99) mg/dl Calcium 8.2 L (8.5-10.1) mg/dl Phosphorus 5.0 H D (2.5-4.9) mg/dl Magnesium 3.2 H (1.8-2.4) mg/dl Total Bilirubin 1.1 H (0.2-1) mg/dl AST 99 H (15-37) U/L ALT 553 H (12-78) U/L Alkaline Phosphatase 160 H (45-117) U/L Total Protein 6.5 (6.4-8.2) gm/dl Albumin 2.5 L (3.4-5.0) gm/dl Globulin 4.0 (2.5-4.0) gm/dl Albumin/Globulin Ratio 0.6 L (0.9-2) Coding Level of Care Code Critical Care 1st 30-74 mins Diagnoses COVID-19 U07.1 Lactic acid acidosis E87.2 Syncope R55 Acute kidney injury N17.9 Acute liver failure K72.00 Hepatic coma status: without hepatic coma (1) Acute liver failure Hepatic coma status: without hepatic coma Qualified Code(s): K72.00 - Acute and subacute hepatic failure without coma
[2020-01-16] MEDS ORDERED: SODIUM CHLORIDE 0.9% 10ML FLUSH IV SCH (11:30)
--- NOTE | 2020-01-16 11:36 | Hospitalist Progress Note ---
Date of Service January 16, 2020 Assessment & Plan (1) Pneumonia due to COVID-19 virus: In ICU on dexamethasone and CAP abx. - Still on high flow with no respiratory reserve. -Patient currently on Decadron. -will order Remdesivir as ALT is now less than 10x UPPER LIMIT. -will closely monitor LFTs. - Further supportive care per ICU -> No major improvement today. (2) Abnormal hepatitis serology: AST/ALT were 2900/2000 on admission. AST 99/ ALT 553 TODAY - Continues to improve. - Supportive care (3) Syncope: Likely related to acute illness. (4) SHERYL (acute kidney injury): No prior hx of renal issues. Cr 2.7 on admission. - Cr. now 1.02 (5) Hypertension with goal blood pressure less than 140/90: BP is 148/93 today. - Continue home meds per ICU (6) Hyperlipidemia: - Continue home statin (7) DVT prophylaxis: Lovenox 40 mg SQ QAM Admission and Anticipated Discharge Date Admission Date: January 12, 2020 Subjective 64 yo male in the ICU on high flow. Patient seen through window as limiting exposure to COVID patients to 1 provider. Review of Systems Review of Systems: Other Physical Exam Physical Exam: On high flow oxygen. lyig in bed in ICU. Results & Data Results & Data ([facility]) Vital Signs (Past 12 Hours) Vital Signs Temp Pulse Pulse Resp BP Pulse Ox 01/16/20 10:50 65 30 H 87 L 01/16/20 09:06 36.5 C 01/16/20 09:00 62 24 96 01/16/20 08:45 61 31 H 148/93 H 96 01/16/20 08:41 77 26 H 96 01/16/20 08:00 62 25 H 94 01/16/20 07:24 69 23 127/96 89 L 01/16/20 07:00 55 L 26 H 94 01/16/20 06:24 54 L 27 H 150/88 H 92 01/16/20 06:00 58 L 26 H 94 01/16/20 05:24 56 L 25 H 144/102 H 94 01/16/20 05:00 56 L 27 H 93 01/16/20 04:25 56 L 28 H 145/110 H 93 01/16/20 04:00 36.7 C 55 L 26 H 96 01/16/20 03:24 58 L 27 H 158/99 H 92 01/16/20 03:00 54 L 23 91 01/16/20 02:24 53 L 26 H 160/93 H 91 01/16/20 02:00 57 L 30 H 92 01/16/20 01:42 59 L 22 94 01/16/20 01:24 55 L 26 H 138/98 89 L 01/16/20 01:00 55 L 24 92 01/16/20 00:23 54 L 27 H 156/88 H 91 01/16/20 00:00 36.9 C 56 L 27 H 91 PG Care Time/CCT Total # of Minutes Spent Total Time Spent with Patient: Total time spent is greater than 50% in coordination of care (as documented) at patient's floor/unit and/or counseling patient: Coding Level of Care Code 91262 Subseq Hosp Care Lvl 2 Diagnoses Pneumonia due to COVID-19 virus U07.1; J12.89 Abnormal hepatitis serology R76.8 Syncope R55 SHERYL (acute kidney injury) N17.9 Hypertension with goal blood pressure less than 140/90 I10 Hyperlipidemia E78.5 DVT prophylaxis Z29.9 Time Spent (min) 25
[2020-01-16] MEDS ORDERED: RAPID SEQUENCE INDUCTION BAG ONE (14:20)
[2020-01-16] MEDS ORDERED: PROPOFOL IV EMULSION 10 MG/ML 100 ML VIAL IV ONE (14:21)
[2020-01-16] MEDS ORDERED: STAT IV Infusion **Titration per Protocol STA ×2 (14:22→16:03)
[2020-01-16] MEDS ORDERED: PROPOFOL BOLUS FROM BAG IV PRN (14:22)
[2020-01-16] MEDS ORDERED: SUCCINYLCHOLINE CHLORIDE 20 MG/ML 10 ML VIAL IV STA (14:23)
[2020-01-16] MEDS ORDERED: MIDAZOLAM HCL 5 MG/ML VIAL IV STA (14:23)
[2020-01-16] MEDS ORDERED: fentaNYL citrate 100 MCG/2 ML VIAL IV STA (14:23)
[2020-01-16] MEDS ORDERED: propofoL 1,000 MG/100 ML VIAL IV SCH (14:30)
--- NOTE | 2020-01-16 15:40 | XRay Report ---
XR chest 1V portable CLINICAL HISTORY: Post intubation/CVC line placement COMPARISON STUDY: Chest CT January 12, 2020. FINDINGS: Tip of the endotracheal tube is 5 cm above the christiano. There is no pneumothorax or pleural effusion. Tip of the right-sided central venous catheter is within the proximal SVC. Bilateral airspa ce opacities persist. Cardiomediastinal silhouette is stable. IMPRESSION: 1. Satisfactory positioning of the endotracheal tube. 2. No pneumothorax. 3. Persistent bilateral airspace opacities consistent with an infectious process. ACT 112: Negative or not required by law. Electronically signed by: Fredis Collins M.D. 01/16/2020 3:38 PM
[2020-01-16] MEDS ORDERED: CISATRACURIUM BESYLATE IV SOLN 2 MG/ML 10 ML VIAL IV STA (16:03)
[2020-01-16] MEDS ORDERED: CISATRACURIUM BOLUS FROM BAG IV STA (16:10)
--- NOTE | 2020-01-16 16:11 | Procedure Note ---
Procedure Note Date of Service January 16, 2020 Procedure Date: Noted above Procedure: Endotracheal intubation Pre-procedure Diagnosis: Acute hypoxic respiratory failure secondary to COVID-19 Post-procedure Diagnosis: same as above Prior to Procedure: Informed Consent: patient had been informed of risk and benefits and informed consent was obtained Attending Staff: Neeta Hammer DO The identity of the patient was confirmed and a bedside time out was performed. Description of Procedure: Patient was evaluated and required intubation for impending respiratory failure. The patient was prepared in the usual fashion. A glide scope was used. A 7.5 mm inner diameter endotrachial tube was placed endotracheally to 26 cm at the teeth . A grade 1 view was obtained. The endotracheal tube was noted to pass through the vocal cords. Chest rise was bilateral. Bilateral breath sounds were heard without air sounds in the abdomen. Mist was noted in the endotracheal tube. End-tidal CO2 measurement was positive. Chest x-ray shows proper endotracheal tube placement. Complications: None Findings: Not applicable Specimens: Not applicable Estimated blood loss: Zero Coding CPT Codes Resuscitation - Resuscitation: 45413 Endotracheal Intubation, emergency ([id number]) [facility] [place] Procedure Codes (Charges) Resuscitation Resuscitation: 87340 Endotracheal Intubation, emergency
--- NOTE | 2020-01-16 16:14 | Procedure Note ---
Procedure Note Date of Service January 16, 2020 Procedure date: Noted above Procedure: Radial artery cannulation Pre-procedure Diagnosis: Need for invasive monitoring, frequent blood draws Post-procedure Diagnosis: same as above Prior to Procedure: Informed Consent: The risks, benefits, indications, potential complications, and alternatives were explained to the patient and informed consent obtained. Attending Staff: Neeta Hammer DO Skin Prep: Chlorhexidine Anesthesia: 3 mL 1% lidocaine without epinephrine The identity of the patient was confirmed and a bedside time out was performed. Description of Procedure: After sterile prep and sterile drape utilizing standard sterile technique the superficial skin of the left radial artery was anesthetized. The target artery was identified via dynamic ultrasound guidance and entered with a 20-gauge arrow Angiocath. Pulsatile bright red blood return was noted. Via modified Seldinger technique the self-contained guidewire was advanced and the Angiocath advanced over the guidewire. The guidewire was removed and brisk arterial blood return was noted. The pressure monitor was connected, and the arterial line was secured via commercial securement device. A sterile dressing was then applied. Complications: None Estimated blood loss: Trace Patient tolerated the procedure well. Coding CPT Codes Tubes, Drains, and Vasc Access - Tubes, Drains, and Vasc Access: [id number] Place Catheter In Artery ([id number]) [facility] [place] Procedure Codes (Charges) Tubes, Drains, and Vasc Access Procedure 1: Tubes, Drains, and Vasc Access: [id number] Place Catheter In Artery
[2020-01-16] MEDS ORDERED: MIDAZOLAM BOLUS FROM BAG IV PRN (16:15)
--- NOTE | 2020-01-16 16:17 | Procedure Note ---
Procedure Note Date of Service January 16, 2020 Procedure date: Noted above Procedure: Central venous access Pre-procedure indication: Poor vascular access, pronation secondary to refractory hypoxemia in the setting of COVID-19 infection Post-procedure Diagnosis: same as above Prior to Procedure: Informed Consent: The risks, benefits, indications, potential complications, and alternatives were explained to the patient and informed consent obtained. Attending Staff: Neeta Hammer DO Resident/APC: Not applicable Skin Prep: Chlorhexidine Anesthesia: 4 mL 1% lidocaine without epinephrine The identity of the patient was confirmed and a bedside time out was performed. Description of Procedure: After sterile prep and sterile drape utilizing standard sterile technique the superficial skin of the right subclavian area was anesthetized. The target vessel was identified and entered with an 18-gauge needle. Dark venous blood return was noted. A guidewire was inserted through the needle and into the vessel. The needle was withdrawn and a skin bella was made. A tissue dilator was advanced via Seldinger technique and removed. A triple lumen catheter was inserted via Seldinger technique and the guidewire removed. All ports smiley and flushed easily. A Biopatch was placed, and the catheter was secured via silk suture. A sterile dressing was then applied. Complications: None Estimated blood loss: Trace Patient tolerated the procedure well. Coding CPT Codes Tubes, Drains, and Vasc Access - Tubes, Drains, and Vasc Access: [id number] Insertion Of Non-tunneled Catheter Age 4 Yrs> ([id number]) [facility] [place] Procedure Codes (Charges) Tubes, Drains, and Vasc Access Procedure 1: Tubes, Drains, and Vasc Access: [id number] Insertion Of Non-tunneled Catheter Age 4 Yrs>
[2020-01-16] MEDS: CISATRACURIUM BESYLATE 40 MG in 0.9 % SODIUM CHLORIDE 80 ML IV SCH ×2 (16:19→23:33)
[2020-01-16] MEDS ORDERED: NORMOSOL-R 1,000 ML IV ONE (16:47)
[2020-01-16] MEDS ORDERED: AZITHROMYCIN 500 MG in DEXTROSE 5% 250 ML IV STA (16:52)
[2020-01-16] MEDS: MIDAZOLAM HCL 125 MG/250 ML BAG IV SCH (16:53)
[2020-01-16 17:34] LABS: Fibrinogen 339 mg/dl (184-400); INR 1.2 (0.9-1.1); Partial Thromboplastin Ratio 0.9; Partial Thromboplastin Time 24.2 Seconds (21.0-31.0); Prothrombin Time 12.2 Seconds (9.0-12.0)
[2020-01-16] MEDS: fentaNYL DRIP 1,250 MCG/250 ML BAG IV SCH (18:05)
[2020-01-16] MEDS: lisinopril 20 MG TAB PO SCH (21:23)
[2020-01-16] MEDS: AMITRIPTYLINE HCL 10 MG TAB PO SCH (21:23)
[2020-01-16] MEDS ORDERED: SUCCINYLCHOLINE CHLORIDE 20 MG/ML 10 ML VIAL IV ONE (22:33)
[2020-01-16] MEDS ORDERED: VECURONIUM BROMIDE 10 MG VIAL IV ONE (22:33)
[2020-01-16] MEDS ORDERED: fentaNYL citrate 100 MCG/2 ML VIAL IV ONE (22:33)
[2020-01-16] MEDS ORDERED: ETOMIDATE 2 MG/ML 20 ML VIAL IV ONE (22:33)
[2020-01-17] MEDS: fentaNYL DRIP 1,250 MCG/250 ML BAG IV SCH ×3 (01:20→22:45)
[2020-01-17 05:25] LABS: Basophils # (auto) 0.02 K/uL (0-0.2); Basophils % (auto) 0.1 %; Hematocrit (blood only) 44.7 % (42-52); Hemoglobin 14.1 g/dL (14.0-18.0); Immature Granulocytes # (auto) 0.16 K/uL (0.00-0.02); Lymphocytes # (auto) 0.62 K/uL (1.2-3.4); Lymphocytes % (auto) 3.7 %; Mean Corpuscular Hemoglobin 29.6 pg (25-34); Mean Corpuscular Hgb Conc 31.5 g/dL (32-36); Mean Corpuscular Volume 93.9 fL (80-100); Mean Platelet Volume 10.7 fL (7.4-10.4); Monocytes # (auto) 0.06 K/uL (0.11-0.59); Monocytes % (auto) 0.4 %; Neutrophils % (auto) 94.8 %; Platelet Count 139 K/uL (130-400); RDW Coefficient of Variation 13.9 % (11.5-14.5); RDW Standard Deviation 47.2 fL (36.4-46.3); Red Blood Count 4.76 M/uL (4.7-6.1); White Blood Count 16.66 K/uL (4.8-10.8)
[2020-01-17 06:35] LABS: Albumin Globulin Ratio 0.5 (0.9-2); BUN Creatinine Ratio 46.1 (10-20); Bilirubin,Total 0.8 mg/dl (0.2-1); Calcium 7.5 mg/dl (8.5-10.1); Creatinine Clr Calc Pharmacy 75.4 ml/min; Est GFR (African American) 86.9; Globulin 3.9 gm/dl (2.5-4.0); Magnesium 3.4 mg/dl (1.8-2.4); Phosphorus 4.7 mg/dl (2.5-4.9); Potassium 5.9 mmol/L (3.5-5.1); Total Protein 5.9 gm/dl (6.4-8.2)
[2020-01-17] MEDS: DEXAMETHASONE SOD PHOSPHATE 6 MG in SYRINGE 0 ML IV SCH (08:53)
[2020-01-17] MEDS: ENOXAPARIN INJ 40 MG/0.4 ML SYR SQ SCH ×2 (08:54→20:17)
[2020-01-17] MEDS: cefTRIAXone SODIUM 2,000 MG in DEXTROSE 5% 50 ML IV SCH (08:54)
[2020-01-17] MEDS: ASPIRIN 81 MG CHEW PO SCH (08:54)
[2020-01-17] MEDS: AZITHROMYCIN 250 MG in DEXTROSE 5% 250 ML IV SCH (08:55)
[2020-01-17] MEDS: PANTOprazole 40 MG in SYRINGE 0 ML IV SCH (08:56)
[2020-01-17] MEDS ORDERED: VECURONIUM BROMIDE 10 MG VIAL IV ONE (09:37)
--- NOTE | 2020-01-17 10:06 | Procedure Note ---
Procedure Note Date of Service January 17, 2020 procedure Date: Noted above Procedure: Direct laryngoscopy Indication: Movement of endotracheal tube Post-procedure Diagnosis: same as above Prior to Procedure: Informed Consent: Emergent Performing provider: Neeta Hammer DO The identity of the patient was confirmed and a bedside time out was performed. Description of Procedure: Utilizing a 3 MAC laryngoscope I was able to visualize the epiglottis as well as the endotracheal tube passing into the vocal cords. The glottic opening did not exhibit edema, a previous superficial area of ecchymoses and small bleeding was no longer bleeding a large amount of secretions was suctioned from the posterior oropharynx Complications: None Findings: Endotracheal tube in good position normal appearing gross anatomy. Specimens: Not applicable Estimated blood loss: Zero Coding CPT Codes ENT - ENT: 83861 Diagnostic laryngoscopy ([id number]) [facility] [place] Procedure Codes (Charges) ENT ENT: [id number] Diagnostic laryngoscopy
--- NOTE | 2020-01-17 10:18 | Critical Care Progress Note ---
Date of Service January 17, 2020 Assessment & Plan (1) COVID-19: Neurologic: Sedation protocol, under neuromuscular blockade -BIS goal 45-65 -Patient designated as surrogate decision-maker Pulmonary: Severe hypoxic respiratory failure: Acute: Secondary to COVID-19 -Discussed with hospitalist team since he is worsening we will give remdesivir day 2/5 -Decadron day 6 of 10 Pronation therapy: Compliance this morning and 60s after return to supine was in the 40s, we will continue to prone the patient today at 2 PM Neuromuscular blockade will discontinue after 24 hours Cardiovascular: Hypertension -Lisinopril hold secondary to hyperkalemia Gastrointestinal: Stress ulcer prophylaxis: Protonix daily Transaminitis likely related to COVID-19 continuing to improve Tube feeding will bolus feed with Nepro while supine Renal: SHERYL: Resolved Hyperkalemia -Repeat potassium at 2 PM Infectious disease: Continue Decadron for COVID-19 pneumonitis. -Day 4 of Rocephin and day 2 Zithromax, total day 4 effective therapy for atypicals with 2 days of doxycycline -Negative MRSA swab, Legionella antigen pending -Bio fire testing not performed we will continue with 7 days treatment in total of Rocephin and atypical coverage Hematologic: DVT prophylaxis: Lovenox Endocrine: Insulin protocol per ICU CODE STATUS: Full Family at bedside: Not available due to the COVID-19 pandemic Disposition: Remain in ICU due to profound hypoxemia. (2) Lactic acid acidosis: (3) Syncope: (4) Acute kidney injury: (5) Acute liver failure: Admission and Anticipated Discharge Date Admission Date: January 12, 2020 Supervising Physician Co-Signing Physician Notes Patient was discussed in multidisciplinary rounds I was present and assisted with the pronating process. Patient tolerated the pronating movement. I have personally spent 50 minutes of critical care time in the direct management of this patient. This is a life/limb threatening event. This includes time spent evaluating patient, direct bedside care, chart review, placing orders, interpretation of diagnostic studies, discussion with consultants, patient, and/or family members regarding treatment decisions, as well as other required patient management activities. This time is exclusive of all separately billable procedures, and teaching time and separate from and in addition to any other critical care service time. Review of Systems Review of Systems: Unobtainable due to endotracheal tube Physical Exam Physical Exam: General: Alert. nontoxic. Psych: Able to pass Mini-Mental status, has ability to consent at this time Skin: Warm, dry, Head: Atraumatic Ears, nose, mouth and throat: airway patent Cardiovascular: Normal peripheral perfusion Respiratory: Tachypnea, improves with pronation, speaking in full sentences with BiPAP, significant respiratory distress on high flow Gastrointestinal: Non distended Musculoskeletal: No deformity Results & Data Results & Data ([facility]) Vital Signs (Past 12 Hours) Vital Signs Temp Pulse Resp BP Pulse Ox 01/17/20 07:50 80 21 93 01/17/20 06:24 36.8 C 60 100/60 89 L 01/17/20 06:00 36.8 C 60 89 L 01/17/20 05:24 36.8 C 60 95/58 L 91 01/17/20 05:00 36.8 C 59 L 91 01/17/20 04:40 61 22 92 01/17/20 04:24 36.8 C 61 91/59 L 90 01/17/20 04:00 36.7 C 61 92 01/17/20 03:24 36.7 C 63 94/59 L 94 01/17/20 03:16 36.7 C 59 L 90/62 L 94 01/17/20 03:00 36.7 C 63 01/17/20 02:24 36.6 C 64 98/60 L 01/17/20 02:00 36.5 C 66 01/17/20 01:24 36.5 C 70 98/63 L 80 L 01/17/20 01:00 36.4 C L 74 85 L 01/17/20 00:24 36.4 C L 84 102/71 86 L 01/17/20 00:00 36.4 C L 85 91 01/16/20 23:55 83 21 96 01/16/20 23:24 36.4 C L 86 111/72 93 01/16/20 23:00 36.5 C 93 H 90 01/16/20 22:24 36.5 C 90 111/71 91 Laboratory Results 01/17/20 01/17/20 01/16/20 Range/Units 04:53 04:53 16:52 WBC 16.66 H (4.8-10.8) K/uL RBC 4.76 (4.7-6.1) M/uL Hgb 14.1 (14.0-18.0) g/dL Hct 44.7 (42-52) % MCV 93.9 (80-100) fL MCH 29.6 (25-34) pg MCHC 31.5 L (32-36) g/dL RDW Std Deviation 47.2 H (36.4-46.3) fL RDW Coeff of Griffin 13.9 (11.5-14.5) % Plt Count 139 (130-400) K/uL MPV 10.7 H (7.4-10.4) fL Immature Gran % (Auto) 1.0 % Neut % (Auto) 94.8 % Lymph % (Auto) 3.7 % [place] % (Auto) 0.4 % Eos % (Auto) 0.0 % Baso % (Auto) 0.1 % Neut # (Auto) 15.80 H (1.4-6.5) K/uL Lymph # (Auto) 0.62 L (1.2-3.4) K/uL [place] # (Auto) 0.06 L (0.11-0.59) K/uL Eos # (Auto) 0.00 (0-0.5) K/uL Baso # (Auto) 0.02 (0-0.2) K/uL Immature Gran # (Auto) 0.16 H (0.00-0.02) K/uL PT 12.2 H (9.0-12.0) Seconds INR 1.2 H (0.9-1.1) APTT 24.2 (21.0-31.0) Seconds PTT Ratio 0.9 Fibrinogen 339 (184-400) mg/dl Sodium 138 (136-145) mmol/L Potassium 5.9 H D (3.5-5.1) mmol/L Chloride 110 H (98-107) mmol/L Carbon Dioxide 27 (21-32) mmol/L Anion Gap 1.0 L (3-11) BUN 48 H (7-18) mg/dl Creatinine 1.04 (0.6-1.4) mg/dl Est Cr Clr Drug Dosing 75.4 ml/min Est GFR ( Amer) 86.9 Est GFR (Non-Af Amer) 75.0 BUN/Creatinine Ratio 46.1 H (10-20) Glucose 106 H (70-99) mg/dl POC Glucose (70-99) mg/dl Calcium 7.5 L (8.5-10.1) mg/dl Phosphorus 4.7 (2.5-4.9) mg/dl Magnesium 3.4 H (1.8-2.4) mg/dl Total Bilirubin 0.8 (0.2-1) mg/dl AST 38 H (15-37) U/L ALT 310 H (12-78) U/L Alkaline Phosphatase 124 H (45-117) U/L Total Protein 5.9 L (6.4-8.2) gm/dl Albumin 2.0 L (3.4-5.0) gm/dl Globulin 3.9 (2.5-4.0) gm/dl Albumin/Globulin Ratio 0.5 L (0.9-2) 01/16/20 Range/Units 11:49 WBC (4.8-10.8) K/uL RBC (4.7-6.1) M/uL Hgb (14.0-18.0) g/dL Hct (42-52) % MCV (80-100) fL MCH (25-34) pg MCHC (32-36) g/dL RDW Std Deviation (36.4-46.3) fL RDW Coeff of Griffin (11.5-14.5) % Plt Count (130-400) K/uL MPV (7.4-10.4) fL Immature Gran % (Auto) % Neut % (Auto) % Lymph % (Auto) % [place] % (Auto) % Eos % (Auto) % Baso % (Auto) % Neut # (Auto) (1.4-6.5) K/uL Lymph # (Auto) (1.2-3.4) K/uL [place] # (Auto) (0.11-0.59) K/uL Eos # (Auto) (0-0.5) K/uL Baso # (Auto) (0-0.2) K/uL Immature Gran # (Auto) (0.00-0.02) K/uL PT (9.0-12.0) Seconds INR (0.9-1.1) APTT (21.0-31.0) Seconds PTT Ratio Fibrinogen (184-400) mg/dl Sodium (136-145) mmol/L Potassium (3.5-5.1) mmol/L Chloride (98-107) mmol/L Carbon Dioxide (21-32) mmol/L Anion Gap (3-11) BUN (7-18) mg/dl Creatinine (0.6-1.4) mg/dl Est Cr Clr Drug Dosing ml/min Est GFR ( Amer) Est GFR (Non-Af Amer) BUN/Creatinine Ratio (10-20) Glucose (70-99) mg/dl POC Glucose 135 H (70-99) mg/dl Calcium (8.5-10.1) mg/dl Phosphorus (2.5-4.9) mg/dl Magnesium (1.8-2.4) mg/dl Total Bilirubin (0.2-1) mg/dl AST (15-37) U/L ALT (12-78) U/L Alkaline Phosphatase (45-117) U/L Total Protein (6.4-8.2) gm/dl Albumin (3.4-5.0) gm/dl Globulin (2.5-4.0) gm/dl Albumin/Globulin Ratio (0.9-2) Coding Level of Care Code Critical Care 1st 30-74 mins Diagnoses COVID-19 U07.1 Lactic acid acidosis E87.2 Syncope R55 Acute kidney injury N17.9 Acute liver failure K72.00 Hepatic coma status: without hepatic coma (1) Acute liver failure Hepatic coma status: without hepatic coma Qualified Code(s): K72.00 - Acute and subacute hepatic failure without coma
--- NOTE | 2020-01-17 10:44 | XRay Report ---
XR chest 1V portable CLINICAL HISTORY: intubation RESPIRATORY FAILURE COMPARISON STUDY: 01/16/2020 FINDINGS: The endotracheal tube is 57 mm above the christiano. There is a right subclavian central venous catheter. There is a nasogastric tube with its tip in the gastric cardia. The heart is borderline en larged. There are improving bilateral pulmonary airspace opacities. No pneumothorax is visualized on the supine study[ IMPRESSION: 1. Improving bilateral pulmonary airspace opacities 2. Endotracheal tube tip 57 mm above the christiano 3. Nasogastric tube within the stomach ACT 112: Negative or not required by law. Electronically signed by: Krishna Law M.D. 01/17/2020 10:43 AM
[2020-01-17] MEDS: REMDESIVIR 100 MG in SODIUM CHLORIDE 0.9% 230 ML IV SCH (11:08)
[2020-01-17] MEDS: CISATRACURIUM BESYLATE 40 MG in 0.9 % SODIUM CHLORIDE 80 ML IV SCH (11:45)
[2020-01-17] MEDS: SODIUM CHLORIDE 0.9% 10ML FLUSH IV SCH (12:26)
[2020-01-17] MEDS: NOVASOURCE RENAL 2.0 CAL 1000ML BAG OG SCH ×2 (14:02→20:17)
[2020-01-17 15:01] LABS: Calcium 7.7 mg/dl (8.5-10.1); Creatinine Clr Calc Pharmacy 66.5 ml/min; Est GFR (African American) 74.6; Est GFR (Non-African American) 64.4; Potassium 6.1 mmol/L (3.5-5.1)
[2020-01-17 15:42] LABS: iSTAT Arterial Blood Gas HCO3 24 meg/L (19-24); iSTAT Arterial Blood Gas pCO2 61 mmHg (35-46); iSTAT Arterial Blood Gas pO2 57 mmHg (80-95); iSTAT Carbon Dioxide 26 mmol/L (24-31); iSTAT Site Art Line
[2020-01-17] MEDS ORDERED: LACTATED RINGER'S 500 ML IV ONE (16:22)
[2020-01-17] MEDS ORDERED: SODIUM BICARB 8.4% INJ 50 MEQ/50 ML SYR IV STA ×2 (16:22→16:24)
[2020-01-17] MEDS ORDERED: STAT IV Infusion **Titration per Protocol STA (16:22)
[2020-01-17] MEDS ORDERED: SODIUM BICARB 8.4% INJ 50 MEQ/50 ML SYR IV ONE (16:25)
[2020-01-17 16:44] LABS: Creatine Kinase MB 12.9 ng/ml (0.5-3.6); Troponin I 0.064 ng/ml (0-0.045)
[2020-01-17] MEDS: NOREPINEPHRINE/D5W 8 MG/508 ML BAG IV SCH (16:46)
[2020-01-17] MEDS ORDERED: AZITHROMYCIN 250 MG in PEDIATRIC DILUENT 0 ML IV SCH (17:00)
[2020-01-17] MEDS: AMITRIPTYLINE HCL 10 MG TAB PO SCH (20:16)
[2020-01-17] MEDS: ARTIFICIAL TEARS OP OINT 3.5 GM TUBE OP SCH (20:16)
--- NOTE | 2020-01-17 22:46 | Hospitalist Progress Note ---
Date of Service January 17, 2020 Assessment & Plan (1) Pneumonia due to COVID-19 virus: In ICU on dexamethasone and CAP abx. - Still on high flow with no respiratory reserve. -Patient currently on Decadron. -will order Remdesivir as ALT is now less than 10x UPPER LIMIT. -will closely monitor LFTs. LFTS at goal. Patient is now intubated. - Further supportive care per ICU -> No major improvement today. (2) Abnormal hepatitis serology: AST/ALT were 2900/2000 on admission. AST 99/ ALT 553 TODAY - Continues to improve. - Supportive care (3) Syncope: Likely related to acute illness. (4) SHERYL (acute kidney injury): No prior hx of renal issues. Cr 2.7 on admission. - Cr. now 1.02 (5) Hypertension with goal blood pressure less than 140/90: - Continue home meds per ICU (6) Hyperlipidemia: - Continue home statin (7) DVT prophylaxis: Lovenox 40 mg SQ QAM Admission and Anticipated Discharge Date Admission Date: January 12, 2020 Subjective Patient intubated Review of Systems Review of Systems: Unobtainable due to endotracheal tube Physical Exam Physical Exam: Intubated. lying in bed in ICU. Results & Data Results & Data ([facility]) Vital Signs (Past 12 Hours) Vital Signs Temp Pulse Resp BP Pulse Ox 01/17/20 19:30 57 L 24 89 L 01/17/20 17:42 55 L 24 90 01/17/20 17:00 37.4 C 59 L 93 01/17/20 16:24 37.5 C 67 76/45 L 91 01/17/20 16:00 37.4 C 67 89 L 01/17/20 15:40 24 01/17/20 15:24 37.4 C 64 91/51 L 89 L 01/17/20 15:00 37.5 C 65 89 L 01/17/20 14:24 37.5 C 65 78/50 L 100 01/17/20 14:12 67 94 01/17/20 14:09 37.4 C 62 95/53 L 94 01/17/20 14:00 37.4 C 63 85 L 01/17/20 13:24 37.3 C 61 97/52 L 88 L 01/17/20 13:00 37.2 C 58 L 88 L 01/17/20 12:24 37.1 C 64 91/53 L 87 L 01/17/20 12:00 37.1 C 61 88 L 01/17/20 11:55 61 88 L 01/17/20 11:24 37.1 C 62 85/55 L 95 01/17/20 11:21 37.1 C 64 91/56 L 95 01/17/20 11:00 37.1 C 62 95 PG Care Time/CCT Total # of Minutes Spent Total Time Spent with Patient: Total time spent is greater than 50% in coordination of care (as documented) at patient's floor/unit and/or counseling patient: Coding Level of Care Code 94288 Subseq Hosp Care Lvl 2 Diagnoses Pneumonia due to COVID-19 virus U07.1; J12.89 Abnormal hepatitis serology R76.8 Syncope R55 SHERYL (acute kidney injury) N17.9 Hypertension with goal blood pressure less than 140/90 I10 Hyperlipidemia E78.5 DVT prophylaxis Z29.9
[2020-01-18 04:16] LABS: Basophils # (auto) 0.01 K/uL (0-0.2); Basophils % (auto) 0.1 %; Eosinophils # (auto) 0.09 K/uL (0-0.5); Eosinophils % (auto) 0.5 %; Hematocrit (blood only) 45.6 % (42-52); Hemoglobin 14.3 g/dL (14.0-18.0); Immature Granulocytes # (auto) 0.24 K/uL (0.00-0.02); Immature Granulocytes % (auto) 1.3 %; Lymphocytes # (auto) 0.43 K/uL (1.2-3.4); Lymphocytes % (auto) 2.4 %; Mean Corpuscular Hemoglobin 29.4 pg (25-34); Mean Corpuscular Hgb Conc 31.4 g/dL (32-36); Mean Corpuscular Volume 93.8 fL (80-100); Mean Platelet Volume 10.5 fL (7.4-10.4); Monocytes # (auto) 0.43 K/uL (0.11-0.59); Monocytes % (auto) 2.4 %; Neutrophils # (auto) 16.64 K/uL (1.4-6.5); Neutrophils % (auto) 93.3 %; Platelet Count 197 K/uL (130-400); RDW Coefficient of Variation 14.1 % (11.5-14.5); Red Blood Count 4.86 M/uL (4.7-6.1); White Blood Count 17.84 K/uL (4.8-10.8)
[2020-01-18] MEDS: CISATRACURIUM BESYLATE 40 MG in 0.9 % SODIUM CHLORIDE 80 ML IV SCH ×2 (04:19→07:31)
[2020-01-18 04:43] LABS: Albumin Globulin Ratio 0.5 (0.9-2); Albumin Level 1.8 gm/dl (3.4-5.0); BUN Creatinine Ratio 53.9 (10-20); Bilirubin,Total 0.7 mg/dl (0.2-1); Calcium 7.4 mg/dl (8.5-10.1); Creatinine Clr Calc Pharmacy 79.2 ml/min; Est GFR (African American) 92.2; Est GFR (Non-African American) 79.6; Globulin 3.6 gm/dl (2.5-4.0); Magnesium 3.6 mg/dl (1.8-2.4); Phosphorus 3.2 mg/dl (2.5-4.9); Potassium 5.1 mmol/L (3.5-5.1); Total Protein 5.4 gm/dl (6.4-8.2); Troponin I 0.063 ng/ml (0-0.045)
[2020-01-18 05:49] LABS: iSTAT Art Bld Gas pCO2 Correct 49 mmHg (35-46); iSTAT Art Bld Gas pH Corrected 7.336 (7.35-7.45); iSTAT Arterial Blood Gas HCO3 26 meg/L (19-24); iSTAT Arterial Blood Gas pCO2 47 mmHg (35-46); iSTAT Arterial Blood Gas pH 7.35 (7.35-7.45); iSTAT Arterial Blood Gas pO2 60 mmHg (80-95); iSTAT Arterial Blood Gas pO2 C 64; iSTAT Carbon Dioxide 27 mmol/L (24-31); iSTAT Hematocrit 43 % (42-52); iSTAT Hemoglobin 14.6 g/dl (14.0-18.0); iSTAT Potassium 5.2 mmol/L (3.3-5.0); iSTAT Site Art Line; iSTAT Sodium 139 mmol/L (135-144)
[2020-01-18] MEDS: ENOXAPARIN INJ 40 MG/0.4 ML SYR SQ SCH ×2 (07:27→21:01)
[2020-01-18] MEDS: ASPIRIN 81 MG CHEW PO SCH (07:27)
[2020-01-18] MEDS: DEXAMETHASONE SOD PHOSPHATE 6 MG in SYRINGE 0 ML IV SCH (07:27)
[2020-01-18] MEDS: ARTIFICIAL TEARS OP OINT 3.5 GM TUBE OP SCH ×2 (07:27→21:01)
[2020-01-18] MEDS: NOVASOURCE RENAL 2.0 CAL 1000ML BAG OG SCH ×3 (07:28→21:02)
[2020-01-18] MEDS: PANTOprazole 40 MG in SYRINGE 0 ML IV SCH (07:28)
[2020-01-18] MEDS: cefTRIAXone SODIUM 2,000 MG in DEXTROSE 5% 50 ML IV SCH (07:28)
[2020-01-18] MEDS: MIDAZOLAM HCL 125 MG/250 ML BAG IV SCH (07:29)
[2020-01-18] MEDS: fentaNYL DRIP 1,250 MCG/250 ML BAG IV SCH ×2 (07:29→16:49)
[2020-01-18] MEDS: AZITHROMYCIN 250 MG in DEXTROSE 5% 250 ML IV SCH (07:29)
[2020-01-18] MEDS: NOREPINEPHRINE/D5W 8 MG/508 ML BAG IV SCH (07:31)
--- NOTE | 2020-01-18 08:08 | XRay Report ---
XR chest 1V portable HISTORY: intubation COMPARISON: Chest 01/17/2020. FINDINGS: Nasogastric tube is seen within the fundus of the stomach. Endotracheal tube terminates 5.7 cm from the christiano. Right subclavian central venous catheter terminates at the proximal SVC. No pneu mothorax. No pleural effusions. The heart remains normal in size. Interstitial thickening and hazy ai rspace opacities remain unchanged. IMPRESSION: 1. Satisfactory support line placement. 2. No change in the mild interstitial thickening and hazy bilateral airspace opacities. ACT 112: Negative or not required by law. Electronically signed by: Henry Alvarado M.D. 01/18/2020 8:06 AM
[2020-01-18] MEDS ORDERED: LACTULOSE SYRUP 20 GM/30 ML UDC PO STA (09:48)
--- NOTE | 2020-01-18 09:57 | Critical Care Progress Note ---
Date of Service January 18, 2020 Assessment & Plan (1) COVID-19: Neurologic: Sedation protocol, under went to 48 hours of neuromuscular blockade -BIS goal 45-65 -Patient designated as surrogate decision-maker Pulmonary: Severe hypoxic respiratory failure: Acute: Secondary to COVID-19 -Discussed with hospitalist team since he is worsening we will give remdesivir day 3/5 -Decadron day 7 of 10 Pronation therapy: Compliance has worsened, we did not prone last night secondary to worsening and vasoactive medication requirements strongly consider proning today Cardiovascular: Hypertension -Lisinopril hold secondary to hyperkalemia Hypotension requiring vasoactive Levophed at 0.1 mcg/kg/min Gastrointestinal: Stress ulcer prophylaxis: Protonix daily Transaminitis: Improving likely related to COVID-19 Tube feeding will reconsider restarting when supine and on stable vasoactive medication -Received a.m. dose of tube feeding will check lactic acid if this remains negative he will receive his second dose at noon today Renal: SHERYL: Resolved Hyperkalemia: Improved -We will give lactulose today Infectious disease: Continue Decadron for COVID-19 pneumonitis. Febrile illness: Cultures sputum culture urine culture -Remdesivir is associated with fever 5% of the time versus 3% of placebo I suspect that this is drug related fever -Day 5/7 of Rocephin and day 3/5 Zithromax, total day 4 effective therapy for atypicals with 2 days of doxycycline -Negative MRSA swab, Legionella antigen negative -Bio fire testing not performed we will continue with 7 days treatment in total of Rocephin and atypical coverage Hematologic: DVT prophylaxis: Lovenox 40 twice daily Endocrine: Insulin protocol per ICU CODE STATUS: Full Vascular access: Right IJ 01/15 left arterial line 01/15 Family at bedside: Not available due to the COVID-19 pandemic Disposition: ICU (2) Lactic acid acidosis: (3) Syncope: (4) Acute kidney injury: (5) Acute liver failure: Admission and Anticipated Discharge Date Admission Date: January 12, 2020 Supervising Physician Co-Signing Physician Notes Patient was discussed in multidisciplinary rounds I have personally spent 45 minutes of critical care time in the direct managem ent of this patient. This is a life/limb threatening event. This includes time spent evaluating patient, direct bedside care, chart review, placing orders, interpretation of diagnostic studies, discussion with consultants, patient, and/or family members regarding treatment decisions, as well as other required patient management activities. This time is exclusive of all separately billable procedures, and teaching time and separate from and in addition to any other critical care service time. Results & Data Results & Data ([facility]) Vital Signs (Past 12 Hours) Vital Signs Temp Pulse Resp BP Pulse Ox 01/18/20 08:24 38.0 C H 55 L 120/61 94 01/18/20 08:20 54 L 21 96 01/18/20 08:00 38.0 C H 56 L 92 01/18/20 07:56 38.1 C H 59 L 119/62 91 01/18/20 07:24 38.1 C H 60 96/54 L 88 L 01/18/20 07:00 38.0 C H 53 L 89 L 01/18/20 06:00 37.9 C H 54 L 90 01/18/20 05:24 37.9 C H 53 L 121/62 90 01/18/20 05:00 37.9 C H 52 L 90 01/18/20 04:24 37.9 C H 53 L 123/63 94 01/18/20 04:00 37.9 C H 53 L 95 01/18/20 03:24 37.9 C H 54 L 123/61 94 01/18/20 03:00 37.9 C H 54 L 25 H 92 01/18/20 02:24 38.0 C H 54 L 117/63 92 01/18/20 02:00 38.0 C H 54 L 92 01/18/20 01:24 38.0 C H 56 L 116/63 92 01/18/20 01:00 38.0 C H 56 L 91 01/18/20 00:24 37.9 C H 55 L 115/62 91 01/18/20 00:00 37.9 C H 56 L 91 01/17/20 23:24 37.9 C H 55 L 118/62 91 01/17/20 23:13 58 L 25 H 89 L 01/17/20 23:00 38.0 C H 58 L 88 L 01/17/20 22:24 37.9 C H 55 L 116/61 91 01/17/20 22:00 37.9 C H 57 L 90 Coding Level of Care Code Critical Care 1st 30-74 mins Diagnoses COVID-19 U07.1 Lactic acid acidosis E87.2 Syncope R55 Acute kidney injury N17.9 Acute liver failure K72.00 Hepatic coma status: without hepatic coma Time Spent (min) 45 (1) Acute liver failure Hepatic coma status: without hepatic coma Qualified Code(s): K72.00 - Acute and subacute hepatic failure without coma
--- NOTE | 2020-01-18 10:47 | Palliative Care Consultation ---
Date of Consultation January 18, 2020 Assessment & Plan (1) Palliative care encounter: This is an unfortunate 64 year old male who presented to the [facility] from home on January 11 after he experienced a syncopal episode. He reported feeling unwell for a few days with congestion and fever. His was known COVID-19. The patient tested positive for COVID-19 and appeared to have COVID pneumonia. He was started on antibiotics and steroids. He is currently on Day #5 of Rocephin IV, Day #3 of Zithromax IV, Day #6 of Decadron, and Day #3 of Remdesivir. His respiratory status declined rather rapidly and he was intubated on January 15. Palliative Care has been consulted to discuss overall goals of care. I spoke with Dr. Hammer during ICU rounds, along with Eyad's nurse, Yuly regarding Mr. Rios's currently progress. He has been intubated for two days and aggressive measures have continued. Unfortunately, he has been febrile and requiring continuous vasoactive support. We have been able to prone him for therapy; however, compliance with this has worsened due to him requiring vasoactive medication. In review with IDT, it is likely that he will require terminal clerk ventilation and a tracheostomy. I reached out to Eyad's , Viri [phone], to discuss his care and goals of care. She said that she is grateful that she was able to do a door visit with Eyad last night. She has had discussions with him in the past and even recently prior to this hospitalization and she said he would not want residential ventilation or a tracheostomy. She has decided that she does not want to escalate care any further and does not want any additional invasive procedures done. Continue current treatment regiment and observe for any positive progress over the next 48-72 hours. Viri said that it will be hard for her, but she recognizes limitations in treatment and plans to eventually move forward with compassionate extubation if he does not show improvement. I did express that this could take time and he has only been on a ventilator for two days, but ultimately it is likely he would require tracheostomy placement. She stated that she will update her step daughter in [place]. For now, she was agreeable that she would NOT want him to receive CPR, cardioversion or defibrillation. I changed him to a conditional code in the computer. We will continue to support Viri throughout this decision making process. (2) Pneumonia due to COVID-19 virus: Intubated: A/C 0.40% Tv 400 PEEP 14 on Remdesivir, Decadron and abx. (3) Acute respiratory failure: Respiratory failure complication: unspecified whether with hypoxia or hypercapnia Qualified Code(s): J96.00 - Acute respiratory failure, unspecified whether with hypoxia or hypercapnia (4) Sepsis: On Levophed 0.05 Acute renal failure type: unspecified Sepsis acute organ dysfunction status: with acute organ dysfunction Sepsis type: sepsis due to unspecified organism Severe sepsis acute organ dysfunction type: acute renal failure Severe sepsis shock status: without septic shock Qualified Code(s): A41.9 - Sepsis, unspecified organism; R65.20 - Severe sepsis without septic shock; N17.9 - Acute kidney failure, unspecified History of Present Illness Reason for Consultation: Goals of Care Requesting Physician: Dr. Hammer Attending Physician: Bryan Dixon History of Present Illness This is an unfortunate 64 year old male who presented to the [facility] from home on January 11 after he experienced a syncopal episode. He reported feeling unwell for a few days with congestion and fever. His was known COVID-19. The patient tested positive for COVID-19 and appeared to have COVID pneumonia. He was started on antibiotics and steroids. He is currently on Day #5 of Rocephin IV, Day #3 of Zithromax IV, Day #6 of Decadron, and Day #3 of Remdesivir. His respiratory status declined rather rapidly and he was intubated on January 15. Palliative Care has been consulted to discuss overall goals of care. Please see A/P for further details. Thank you for involving palliative care with this gentleman. Allergies Allergy/AdvReac Type Severity Reaction Status Date / Time No Known Allergies Allergy Verified 01/12/20 10:44 Home Medications Medication Instructions Recorded Confirmed Type aspirin 81 mg tablet,delayed 81 mg PO QAM 10/13/18 01/12/20 History release atorvastatin 10 mg tablet 10 mg PO QPM #90 tab 05/08/19 01/12/20 Rx sildenafil (pulm.hypertension) 20 50 - 100 mg PO DAILY PRN #30 tab 01/01/20 01/12/20 Rx mg tablet albuterol sulfate 90 mcg/actuation 2 puff INHALATION .COMPLEX PRN 01/10/20 01/12/20 Rx aerosol inhaler #8.5 g inhalational spacing device #1 ea 01/10/20 01/10/20 Rx allopurinol 100 mg PO QAM 01/12/20 01/12/20 History amitriptyline 20 mg PO PM 01/12/20 01/12/20 History azithromycin 250 mg PO QAM 01/12/20 01/12/20 History lisinopril 20 mg PO PM 01/12/20 01/12/20 History prednisone 10 mg PO DIRECTED 01/12/20 01/12/20 History Patient History Medical History (Updated 01/18/20 @ 12:57 by SHELLI Wright) Acute kidney injury Acute liver failure Breast lump Broken ankle Broken collarbone COVID-19 Hyperlipidemia Hypertension with goal blood pressure less than 140/90 Lymphocytic colitis Osteoarthritis, hand Palliative care encounter Family History Mother Cancer stomach CA Brother Cancer liver CA Denies family history of Ovarian cancer Prostate cancer Myocardial infarction Breast cancer Colorectal cancer Social History Smoking Status: Never smoker Second Hand Exposure: No; Hx Alcohol Use: Yes Alcohol type: beer Alcohol Intake Frequency Comment: 1-2x per week Hx Substance Use: No Preferred Language: Icelandic Communication Ability: Effective Impregnating Helper Required: No Beliefs That Will Affect Care: None marital status: Current Living Situation: Spouse current occupational status: employed current occupation: [employer] Feels Safe at Home: Yes Dental Care, Regularly: Yes Physical Activity Frequency: Does not Exercise Physical Activity Frequency Comment: walking Seatbelt Use: always Do you think of yourself as: straight/heterosexual Assistive Devices: Oxygen - Continuous Review of Systems Review of Systems: Deferred due to covid-19 Physical Exam Physical Exam: Deferred due to covid-19. Discussed with hospitalist Results & Data ([place]) Vital Signs (Past 12 Hours) Vital Signs Temp Pulse Resp BP Pulse Ox 01/18/20 10:37 53 L 25 H 99 01/18/20 08:24 38.0 C H 55 L 120/61 94 01/18/20 08:20 54 L 21 96 01/18/20 08:00 38.0 C H 56 L 92 01/18/20 07:56 38.1 C H 59 L 119/62 91 01/18/20 07:24 38.1 C H 60 96/54 L 88 L 01/18/20 07:00 38.0 C H 53 L 89 L 01/18/20 06:00 37.9 C H 54 L 90 01/18/20 05:24 37.9 C H 53 L 121/62 90 01/18/20 05:00 37.9 C H 52 L 90 01/18/20 04:24 37.9 C H 53 L 123/63 94 01/18/20 04:00 37.9 C H 53 L 95 01/18/20 03:24 37.9 C H 54 L 123/61 94 01/18/20 03:00 37.9 C H 54 L 25 H 92 01/18/20 02:24 38.0 C H 54 L 117/63 92 01/18/20 02:00 38.0 C H 54 L 92 01/18/20 01:24 38.0 C H 56 L 116/63 92 01/18/20 01:00 38.0 C H 56 L 91 01/18/20 00:24 37.9 C H 55 L 115/62 91 01/18/20 00:00 37.9 C H 56 L 91 01/17/20 23:24 37.9 C H 55 L 118/62 91 01/17/20 23:13 58 L 25 H 89 L 01/17/20 23:00 38.0 C H 58 L 88 L PG Care Time/CCT Total # of Minutes Spent Total Time Spent with Patient: Total time spent is greater than 50% in coordination of care (as documented) at patient's floor/unit and/or counseling patient: 100 Coding Level of Care Code 16032 Inpt Consult Level 4 Diagnoses Palliative care encounter Z51.5 Pneumonia due to COVID-19 virus U07.1; J12.89 Acute respiratory failure J96.00 Respiratory failure complication: unspecified whether with hypoxia or hypercapnia Sepsis A41.9; R65.20; N17.9 Acute renal failure type: unspecified Sepsis acute organ dysfunction status: with acute organ dysfunction Sepsis type: sepsis due to unspecified organism Severe sepsis acute organ dysfunction type: acute renal failure Severe sepsis shock status: without septic shock Time Spent (min) 100 Time Spent Midlevel Total time spent 100 minutes with > 50% of that time spent discussing assessment and current plan of care with IDT, and discussing goals of care with patients .
[2020-01-18] MEDS: REMDESIVIR 100 MG in SODIUM CHLORIDE 0.9% 230 ML IV SCH (12:07)
[2020-01-18] MEDS: INSULIN ASPART 100 UNITS/ML 3 ML PEN SC SCH ×3 (12:26→21:30)
[2020-01-18] MEDS: SODIUM CHLORIDE 0.9% 10ML FLUSH IV SCH (13:53)
[2020-01-18 17:29] LABS: iSTAT Arterial Blood Gas HCO3 27 meg/L (19-24); iSTAT Arterial Blood Gas pCO2 47 mmHg (35-46); iSTAT Arterial Blood Gas pH 7.37 (7.35-7.45); iSTAT Arterial Blood Gas pO2 53 mmHg (80-95); iSTAT Carbon Dioxide 28 mmol/L (24-31); iSTAT FiO2 40 %; iSTAT Site Art Line
[2020-01-18] MEDS: AMITRIPTYLINE HCL 10 MG TAB PO SCH (21:00)
[2020-01-19] MEDS: INSULIN ASPART 100 UNITS/ML 3 ML PEN SC SCH ×6 (00:58→21:39)
[2020-01-19] MEDS: fentaNYL DRIP 1,250 MCG/250 ML BAG IV SCH ×4 (02:50→23:29)
[2020-01-19 04:21] LABS: Eosinophils # (auto) 0.18 K/uL (0-0.5); Hematocrit (blood only) 43.3 % (42-52); Hemoglobin 13.8 g/dL (14.0-18.0); Immature Granulocytes # (auto) 0.12 K/uL (0.00-0.02); Immature Granulocytes % (auto) 0.7 %; Lymphocytes # (auto) 0.96 K/uL (1.2-3.4); Lymphocytes % (auto) 5.2 %; Mean Corpuscular Hemoglobin 29.7 pg (25-34); Mean Corpuscular Hgb Conc 31.9 g/dL (32-36); Mean Corpuscular Volume 93.3 fL (80-100); Mean Platelet Volume 9.9 fL (7.4-10.4); Monocytes # (auto) 0.12 K/uL (0.11-0.59); Monocytes % (auto) 0.7 %; Neutrophils # (auto) 16.91 K/uL (1.4-6.5); Neutrophils % (auto) 92.4 %; Platelet Count 209 K/uL (130-400); RDW Coefficient of Variation 14.2 % (11.5-14.5); RDW Standard Deviation 47.8 fL (36.4-46.3); Red Blood Count 4.64 M/uL (4.7-6.1); White Blood Count 18.29 K/uL (4.8-10.8)
[2020-01-19] MEDS: NOREPINEPHRINE/D5W 8 MG/508 ML BAG IV SCH (04:26)
[2020-01-19 04:38] LABS: iSTAT Art Bld Gas pCO2 Correct 50 mmHg (35-46); iSTAT Arterial Blood Gas HCO3 27 meg/L (19-24); iSTAT Arterial Blood Gas pCO2 48 mmHg (35-46); iSTAT Arterial Blood Gas pH 7.35 (7.35-7.45); iSTAT Arterial Blood Gas pO2 68 mmHg (80-95); iSTAT Arterial Blood Gas pO2 C 73; iSTAT Carbon Dioxide 28 mmol/L (24-31); iSTAT FiO2 50 %; iSTAT Hematocrit 41 % (42-52); iSTAT Hemoglobin 13.9 g/dl (14.0-18.0); iSTAT Potassium 5.1 mmol/L (3.3-5.0); iSTAT Site Art Line; iSTAT Sodium 139 mmol/L (135-144)
[2020-01-19 04:57] LABS: BUN Creatinine Ratio 39.7 (10-20); Calcium 7.3 mg/dl (8.5-10.1); Creatinine Clr Calc Pharmacy 96.8 ml/min; Est GFR (African American) 108.1; Est GFR (Non-African American) 93.3; Magnesium 3.1 mg/dl (1.8-2.4); Phosphorus 3.5 mg/dl (2.5-4.9); Potassium 5.3 mmol/L (3.5-5.1); Troponin I 0.039 ng/ml (0-0.045)
--- NOTE | 2020-01-19 07:31 | Hospitalist Progress Note ---
Date of Service January 18, 2020 Assessment & Plan (1) Pneumonia due to COVID-19 virus: In ICU on dexamethasone and CAP abx. Patient remains intubated, and not improving. -Patient currently on Decadron. -will order Remdesivir as ALT is now less than 10x UPPER LIMIT. -will closely monitor LFTs. LFTS at goal, continue to decrease. Patient is now intubated. - Further supportive care per ICU -> No major improvement today. Palliative care consulted, will help with goals of care with certified driver examiner. (2) Abnormal hepatitis serology: AST/ALT were 2900/2000 on admission. much improved. - Continues to improve. - Supportive care (3) Syncope: Likely related to acute illness. (4) SHERYL (acute kidney injury): No prior hx of renal issues. Cr 2.7 on admission. - Cr. now improved (5) Hypertension with goal blood pressure less than 140/90: - Continue home meds per ICU (6) Hyperlipidemia: - Continue home statin (7) DVT prophylaxis: Lovenox 40 mg SQ QAM Admission and Anticipated Discharge Date Admission Date: January 12, 2020 Subjective Patient is intubated. Review of Systems Review of Systems: Unobtainable due to endotracheal tube Physical Exam Physical Exam: Patient is intubated and sedated. Results & Data Results & Data ([facility]) Vital Signs (Past 12 Hours) Vital Signs Temp Pulse Resp BP Pulse Ox 01/19/20 04:30 52 L 25 H 92 01/19/20 04:00 37.8 C H 50 L 92 01/19/20 03:25 37.7 C H 50 L 114/65 92 01/19/20 03:00 37.6 C H 49 L 92 01/19/20 02:25 37.5 C 49 L 122/67 91 01/19/20 02:00 37.4 C 49 L 93 01/19/20 01:25 37.5 C 47 L 147/79 H 94 01/19/20 01:00 37.6 C H 52 L 93 01/19/20 00:30 37.7 C H 72 24 80 L 01/19/20 00:25 37.7 C H 116/66 91 01/19/20 00:00 37.7 C H 45 L 98 01/18/20 23:30 37.7 C H 49 L 95 01/18/20 23:25 37.7 C H 48 L 140/74 94 01/18/20 23:00 37.7 C H 48 L 95 01/18/20 22:30 37.6 C H 48 L 95 01/18/20 22:25 37.6 C H 47 L 135/74 95 01/18/20 22:00 37.6 C H 48 L 96 01/18/20 21:30 37.6 C H 50 L 96 01/18/20 21:25 37.6 C H 48 L 150/77 H 96 01/18/20 21:00 37.6 C H 46 L 100 01/18/20 20:30 37.7 C H 48 L 26 H 97 01/18/20 20:25 37.7 C H 48 L 140/74 100 01/18/20 20:00 37.7 C H 51 L 97 PG Care Time/CCT Total # of Minutes Spent Total Time Spent with Patient: Total time spent is greater than 50% in coordination of care (as documented) at patient's floor/unit and/or counseling patient: Coding Level of Care Code 62522 Subseq Hosp Care Lvl 2 Diagnoses Pneumonia due to COVID-19 virus U07.1; J12.89 Abnormal hepatitis serology R76.8 Syncope R55 SHERYL (acute kidney injury) N17.9 Hypertension with goal blood pressure less than 140/90 I10 Hyperlipidemia E78.5 DVT prophylaxis Z29.9
[2020-01-19] MEDS: ENOXAPARIN INJ 40 MG/0.4 ML SYR SQ SCH ×2 (08:14→21:05)
[2020-01-19] MEDS: ASPIRIN 81 MG CHEW PO SCH (08:15)
[2020-01-19] MEDS: NOVASOURCE RENAL 2.0 CAL 1000ML BAG OG SCH ×3 (08:16→20:31)
[2020-01-19] MEDS: AZITHROMYCIN 250 MG in DEXTROSE 5% 250 ML IV SCH (08:18)
[2020-01-19] MEDS: DEXAMETHASONE SOD PHOSPHATE 6 MG in SYRINGE 0 ML IV SCH (08:18)
[2020-01-19] MEDS: ARTIFICIAL TEARS OP OINT 3.5 GM TUBE OP SCH ×2 (08:18→21:03)
[2020-01-19] MEDS: cefTRIAXone SODIUM 2,000 MG in DEXTROSE 5% 50 ML IV SCH (08:18)
[2020-01-19] MEDS: PANTOprazole 40 MG in SYRINGE 0 ML IV SCH (08:18)
--- NOTE | 2020-01-19 09:13 | XRay Report ---
XR chest 1V portable HISTORY: 64 years-old Male f/u follow-up study in a patient with acute respiratory failure COMPARISON: Chest radiograph 01/18/2020 TECHNIQUE: Portable AP view of the chest FINDINGS: Endotracheal tube overlies the midline, 5.8 cm superior to the christiano. Right subclavian central venou s catheter distal tip terminates in the expected location of the proximal SVC. Enteric tube courses b elow the diaphragm with distal tip outside the [id number]. No pneumothorax or large pleural effusi on. Bilateral reticular opacities with ill-defined airspace densities appear stable from comparison. Bones appear grossly intact. IMPRESSION: 1. Lines and tubes as above. 2. No pneumothorax. 3. Persistent bilateral reticular interstitial and airspace opacities. ACT 112: Negative or not required by law. The above report was generated using voice recognition software. It may contain grammatical, syntax o r spelling errors. Electronically signed by: Timi Clay M.D. 01/19/2020 9:12 AM
--- NOTE | 2020-01-19 09:38 | Critical Care Progress Note ---
Date of Service January 19, 2020 Assessment & Plan (1) COVID-19: Neurologic: Sedation protocol, under went to 48 hours of neuromuscular blockade - currently on 4 mg Versed 125 mgLocated fentanyl -Sedation vacation patient arouses moves all 4 extremities however grabs at tube and is subsequently restrained -Patient designated as surrogate decision-maker Pulmonary: Severe hypoxic respiratory failure: Acute: Secondary to COVID-19 -Discussed with hospitalist team since he is worsening we will give remdesivir day 05/13 -Decadron day Pronation therapy: Compliance has mildly improved, we did not prone last night secondary to worsening and vasoactive medication requirements -Minimal improvement in overall ARDSnet settings PEEP of 14 FiO2 50 PF ratio less than 200 -Will prone 01/18 at 11 Cardiovascular: Hypertension resolved -Lisinopril hold secondary to hyperkalemia Hypotension: Largely unchanged -Requiring vasoactive Levophed at 0.08 mcg/kg/min Gastrointestinal: Stress ulcer prophylaxis: Protonix daily Transaminitis: Improving likely related to COVID-19 Tube feeding bolus form when supine Constipation: Fecal management system and Kayexalate for hyper K Renal: SHERYL: Resolved Hyperkalemia: Improved - will give Kayexalate Gentle diuresis 10 mg IV Lasix x1 Infectious disease: Continue Decadron for COVID-19 pneumonitis. Febrile illness: Cultures sputum culture urine culture -Remdesivir is associated with fever 5% of the time versus 3% of placebo I suspect that this is drug related fever -Day 6/7 of Rocephin and day 4/5 Zithromax, total day 4 effective therapy for atypicals with 2 days of doxycycline -Negative MRSA swab, Legionella antigen negative -Bio fire testing not performed we will continue with 7 days treatment in total of Rocephin and atypical coverage Hematologic: DVT prophylaxis: Lovenox 40 twice daily Endocrine: Insulin protocol per ICU CODE STATUS: Full Vascular access: Right IJ 01/15 left arterial line 01/15 Family at bedside: Not available due to the COVID-19 pandemic Disposition: ICU (2) Lactic acid acidosis: (3) Syncope: (4) Acute kidney injury: (5) Acute liver failure: Admission and Anticipated Discharge Date Admission Date: January 12, 2020 Supervising Physician Co-Signing Physician Notes Patient was discussed in multidisciplinary rounds I have personally spent 85 minutes of critical care time in the direct management of this patient. This is a life/limb threatening event. This includes time spent evaluating patient, direct bedside care, chart review, placing orders, interpretation of diagnostic studies, discussion with consultants, patient, and/or family members regarding treatment decisions, as well as other required patient management activities. This time is exclusive of all separately billable procedures, and teaching time and separate from and in addition to any other critical care service time. I updated the patient's with regard to condition. As previously mentioned, the patient clearly indicated he wanted his to be his surrogate decision maker. I will be contacting Maral the patient's daughter to facilitate a joint discussion between the treatment team, Maral the patient's biological daughter from a different spouse and the patient's current . I had a 20-minute discussion with Maral regarding the patient's current status and prognosis. She did not want to participate in the previously scheduled Zoom call at 1800 this evening, we will attempt to establish a group conference call/probable Zoom call to allow her to see her father on Wednesday at 6 PM Eastern standard time she is in [place] on central standard time. Subjective No overnight events, requiring less vasoactive medications Review of Systems Review of Systems: Unobtainable due to endotracheal tube Physical Exam Physical Exam: General: Glascow Coma Scale: Eyes: 2, Verbal 1T, Motor 4, Total 7T Psych: RASS score -2 to -3 Skin: Warm, dry, Head: Atraumatic Ears, nose, mouth and throat: Airway obscured by endotracheal tube Cardiovascular: Normal peripheral perfusion Respiratory: ventilator settings reviewed Gastrointestinal: Non distended Musculoskeletal: No deformity Results & Data Results & Data ([facility]) Vital Signs (Past 12 Hours) Vital Signs Temp Pulse Resp BP Pulse Ox 01/19/20 08:13 52 L 26 H 91 01/19/20 04:30 52 L 25 H 92 01/19/20 04:00 37.8 C H 50 L 92 01/19/20 03:25 37.7 C H 50 L 114/65 92 01/19/20 03:00 37.6 C H 49 L 92 01/19/20 02:25 37.5 C 49 L 122/67 91 01/19/20 02:00 37.4 C 49 L 93 01/19/20 01:25 37.5 C 47 L 147/79 H 94 01/19/20 01:00 37.6 C H 52 L 93 01/19/20 00:30 37.7 C H 72 24 80 L 01/19/20 00:25 37.7 C H 116/66 91 01/19/20 00:00 37.7 C H 45 L 98 01/18/20 23:30 37.7 C H 49 L 95 01/18/20 23:25 37.7 C H 48 L 140/74 94 01/18/20 23:00 37.7 C H 48 L 95 01/18/20 22:30 37.6 C H 48 L 95 01/18/20 22:25 37.6 C H 47 L 135/74 95 01/18/20 22:00 37.6 C H 48 L 96 Coding Level of Care Code Critical Care ea addt'l 30 min Diagnoses COVID-19 U07.1 Lactic acid acidosis E87.2 Syncope R55 Acute kidney injury N17.9 Acute liver failure K72.00 Hepatic coma status: without hepatic coma (1) Acute liver failure Hepatic coma status: without hepatic coma Qualified Code(s): K72.00 - Acute and subacute hepatic failure without coma
[2020-01-19] MEDS ORDERED: FUROSEMIDE 10 MG in SYRINGE 0 ML IV ONE (10:00)
[2020-01-19] MEDS ORDERED: SODIUM POLYSTYRENE 15 GM/60 ML 500ML BOTTLE PO ONE (10:00)
[2020-01-19] MEDS: MIDAZOLAM HCL 125 MG/250 ML BAG IV SCH (11:03)
[2020-01-19] MEDS: REMDESIVIR 100 MG in SODIUM CHLORIDE 0.9% 230 ML IV SCH (12:40)
[2020-01-19] MEDS: SODIUM CHLORIDE 0.9% 10ML FLUSH IV SCH (12:41)
--- NOTE | 2020-01-19 17:37 | Communication Note ---
Date of Service: January 19, 2020 I touched base today with Dr. Hammer and Eyad's nurse Lorena. Dr. Hammer was able to talk with the patients daughter, Maral, who stated she was unable to attend a ZOOM meeting this evening, but would be available on Wednesday at 1700. I called Eyad's , Viri, who is still coming for a window visit, but is also available for a family meeting with Maral on Wednesday. Plan for family meeting on Sunday 01/21 at 1700. See palliative care note dated 01/17 for further details.
[2020-01-19] MEDS: AMITRIPTYLINE HCL 10 MG TAB PO SCH (21:02)
--- NOTE | 2020-01-19 22:03 | Hospitalist Progress Note ---
Date of Service January 19, 2020 Assessment & Plan (1) Pneumonia due to COVID-19 virus: In ICU on dexamethasone and CAP abx. Patient remains intubated, and not improving. -Patient currently on Decadron. -will continue Remdesivir as ALT is now less than 10x UPPER LIMIT. -will closely monitor LFTs. LFTS at goal, continue to decrease. Patient is now intubated. - Further supportive care per ICU -> Family meeting scheduled later today to discuss end of life status. Palliative care consulted, will help with goals of care with sheriff sergeant. (2) Abnormal hepatitis serology: AST/ALT were 2900/2000 on admission. much improved. - Continues to improve. - Supportive care (3) Syncope: Likely related to acute illness. (4) SHERYL (acute kidney injury): No prior hx of renal issues. Cr 2.7 on admission. - Cr. now improved (5) Hypertension with goal blood pressure less than 140/90: - Continue home meds per ICU (6) Hyperlipidemia: - Continue home statin (7) DVT prophylaxis: Lovenox 40 mg SQ QAM Admission and Anticipated Discharge Date Admission Date: January 12, 2020 Subjective Patient remains intubated. Review of Systems Review of Systems: Unobtainable due to endotracheal tube Physical Exam Physical Exam: Patient is intubated and lying in bed. Results & Data Results & Data ([facility]) Vital Signs (Past 12 Hours) Vital Signs Temp Pulse Resp BP Pulse Ox 01/19/20 20:56 54 L 24 92 01/19/20 20:00 37.1 C 45 L 93 01/19/20 19:25 37.1 C 47 L 135/77 92 01/19/20 19:00 37.1 C 47 L 90 01/19/20 18:25 37.1 C 48 L 137/77 91 01/19/20 18:00 37.1 C 49 L 89 L 01/19/20 17:25 37.2 C 52 L 134/73 89 L 01/19/20 16:45 52 L 24 91 01/19/20 16:25 37.3 C 51 L 136/78 94 01/19/20 16:00 37.3 C 47 L 89 L 01/19/20 15:25 37.3 C 52 L 140/78 89 L 01/19/20 14:25 37.4 C 54 L 123/75 94 01/19/20 14:00 37.4 C 54 L 92 01/19/20 13:25 37.4 C 55 L 129/75 89 L 01/19/20 12:25 37.0 C 62 111/71 90 01/19/20 12:14 63 105/65 90 01/19/20 12:11 60 24 91 01/19/20 12:00 60 91 01/19/20 11:58 56 L 156/88 H 91 01/19/20 11:25 38.0 C H 54 L 140/77 94 01/19/20 11:00 37.9 C H 53 L 93 01/19/20 10:25 37.9 C H 62 100/57 L 91 PG Care Time/CCT Total # of Minutes Spent Total Time Spent with Patient: Total time spent is greater than 50% in coordination of care (as documented) at patient's floor/unit and/or counseling patient: Coding Level of Care Code 03617 Subseq Hosp Care Lvl 2 Diagnoses Pneumonia due to COVID-19 virus U07.1; J12.89 Abnormal hepatitis serology R76.8 Syncope R55 SHERYL (acute kidney injury) N17.9 Hypertension with goal blood pressure less than 140/90 I10 Hyperlipidemia E78.5 DVT prophylaxis Z29.9
[2020-01-20] MEDS: INSULIN ASPART 100 UNITS/ML 3 ML PEN SC SCH ×6 (00:08→20:00)
[2020-01-20] MEDS: MIDAZOLAM HCL 125 MG/250 ML BAG IV SCH (01:28)
[2020-01-20 02:39] LABS: iSTAT Art Bld Gas pCO2 Correct 48 mmHg (35-46); iSTAT Art Bld Gas pH Corrected 7.412 (7.35-7.45); iSTAT Arterial Blood Gas HCO3 30 meg/L (19-24); iSTAT Arterial Blood Gas pCO2 48 mmHg (35-46); iSTAT Arterial Blood Gas pH 7.41 (7.35-7.45); iSTAT Arterial Blood Gas pO2 63 mmHg (80-95); iSTAT Arterial Blood Gas pO2 C 62; iSTAT Carbon Dioxide 32 mmol/L (24-31); iSTAT FiO2 40 %; iSTAT Hematocrit 41 % (42-52); iSTAT Hemoglobin 13.9 g/dl (14.0-18.0); iSTAT Potassium 5.3 mmol/L (3.3-5.0); iSTAT Site Art Line; iSTAT Sodium 138 mmol/L (135-144)
[2020-01-20 04:41] LABS: Eosinophils # (auto) 0.07 K/uL (0-0.5); Eosinophils % (auto) 0.6 %; Hemoglobin 13.7 g/dL (14.0-18.0); Immature Granulocytes # (auto) 0.06 K/uL (0.00-0.02); Immature Granulocytes % (auto) 0.5 %; Lymphocytes # (auto) 0.76 K/uL (1.2-3.4); Lymphocytes % (auto) 6.7 %; Mean Corpuscular Hemoglobin 29.7 pg (25-34); Mean Corpuscular Hgb Conc 31.9 g/dL (32-36); Mean Corpuscular Volume 93.1 fL (80-100); Mean Platelet Volume 9.9 fL (7.4-10.4); Monocytes # (auto) 0.23 K/uL (0.11-0.59); Neutrophils # (auto) 10.23 K/uL (1.4-6.5); Neutrophils % (auto) 90.2 %; Platelet Count 205 K/uL (130-400); RDW Coefficient of Variation 13.9 % (11.5-14.5); RDW Standard Deviation 46.8 fL (36.4-46.3); Red Blood Count 4.62 M/uL (4.7-6.1); White Blood Count 11.35 K/uL (4.8-10.8)
[2020-01-20 05:06] LABS: BUN Creatinine Ratio 40.5 (10-20); Calcium 7.7 mg/dl (8.5-10.1); Creatinine Clr Calc Pharmacy 122.6 ml/min; Est GFR (African American) 119.1; Est GFR (Non-African American) 102.7; Magnesium 2.7 mg/dl (1.8-2.4); Potassium 5.1 mmol/L (3.5-5.1)
[2020-01-20 05:07] LABS: Phosphorus 4.1 mg/dl (2.5-4.9)
[2020-01-20] MEDS: fentaNYL DRIP 1,250 MCG/250 ML BAG IV SCH ×3 (06:15→22:29)
[2020-01-20] MEDS: cefTRIAXone SODIUM 2,000 MG in DEXTROSE 5% 50 ML IV SCH (07:32)
[2020-01-20] MEDS: AZITHROMYCIN 250 MG in DEXTROSE 5% 250 ML IV SCH (07:32)
[2020-01-20] MEDS: ASPIRIN 81 MG CHEW PO SCH (07:32)
[2020-01-20] MEDS: PANTOprazole 40 MG in SYRINGE 0 ML IV SCH (07:32)
[2020-01-20] MEDS: DEXAMETHASONE SOD PHOSPHATE 6 MG in SYRINGE 0 ML IV SCH (07:32)
[2020-01-20] MEDS: ARTIFICIAL TEARS OP OINT 3.5 GM TUBE OP SCH ×2 (07:33→20:19)
--- NOTE | 2020-01-20 08:11 | Critical Care Progress Note ---
Date of Service January 20, 2020 Assessment & Plan (1) COVID-19: Neurologic: Sedation protocol, under went to 48 hours of neuromuscular blockade - currently on 4 mg Versed 125 mgLocated fentanyl -Sedation vacation patient arouses moves all 4 extremities however grabs at tube and is subsequently restrained -Patient designated as surrogate decision-maker during verbal discussion prior to intubation when patient had capacity Pulmonary: Severe hypoxic respiratory failure: Acute: Secondary to COVID-19 -Discussed with hospitalist team since he is worsening we will give remdesivir day 06/12 last dose today 01/19 -Decadron day Pronation therapy: Compliance largely unchanging with pronation, -Minimal improvement in overall ARDSnet settings PEEP of 14 FiO2 40-50 PF ratio less than 200 -Patient appears to no longer be responding to pronation therapy Cardiovascular: Hypertension resolved -Lisinopril hold secondary to hyperkalemia Hypotension: Minimal improvement still requiring vasoactive's -Requiring vasoactive Levophed at 0.04 mcg/kg/min Asymptomatic bradycardia into the high 30s -EKG to be obtained Gastrointestinal: Stress ulcer prophylaxis: Protonix daily Transaminitis: Improving likely related to COVID-19 Tube feeding bolus form when supine Constipation: Fecal management system and Kayexalate for hyper K while prone -Last BM: None recorded: Giving 45 g Kayexalate on 01/19, was given 15 g on 01/18 Renal: SHERYL: Resolved Hyperkalemia: Improved - will give Kayexalate Gentle diuresis 40 mg IV Lasix x1 Infectious disease: Continue Decadron for COVID-19 pneumonitis. Febrile illness: Resolved Cultures sputum culture urine culture: No growth to date -Remdesivir is associated with fever 5% of the time versus 3% of placebo I suspect that this is drug related fever -Day 6/7 of Rocephin and day 4/5 Zithromax Negative MRSA swab, Legionella antigen negative -Bio fire testing not performed we will continue with 7 days treatment in total of Rocephin and atypical coverage Hematologic: DVT prophylaxis: Lovenox 40 twice daily Endocrine: Insulin protocol per ICU CODE STATUS: Full Vascular access: Right IJ 01/15 left arterial line 01/15 Family at bedside: Not available due to the COVID-19 pandemic Disposition: ICU (2) Lactic acid acidosis: (3) Syncope: (4) Acute kidney injury: (5) Acute liver failure: Admission and Anticipated Discharge Date Admission Date: January 12, 2020 Supervising Physician Co-Signing Physician Notes I was present and assisted with the pronating process. Patient tolerated the pronating movement. Patient's overall ventilatory oxygenation process remains unchanged, I am worried of a poor prognosis. I have personally spent 60 minutes of critical care time in the direct management of this patient. This is a life/limb threatening event. This includes time spent evaluating patient, direct bedside care, chart review, placing orders, interpretation of diagnostic studies, discussion with consultants, patient, and/or family members regarding treatment decisions, as well as other required patient management activities. This time is exclusive of all separately billable procedures, and teaching time and separate from and in addition to any other critical care service time. Subjective No overnight events. Overnight nursing was able to discuss with Maral the patient's prognosis and status Review of Systems Review of Systems: Unobtainable due to endotracheal tube Physical Exam Physical Exam: General: Glascow Coma Scale: Eyes: 1, Verbal 1T, Motor 4, Total 6T Psych: RASS score -3 Skin: Warm, dry, Head: Atraumatic Ears, nose, mouth and throat: Airway obscured by endotracheal tube Cardiovascular: Normal peripheral perfusion Respiratory: ventilator settings reviewed Gastrointestinal: Non distended Musculoskeletal: No deformity Results & Data Results & Data ([facility]) Vital Signs (Past 12 Hours) Vital Signs Temp Pulse Resp BP Pulse Ox 01/20/20 06:00 36.7 C 42 L 92 01/20/20 05:26 36.7 C 42 L 171/88 H 93 01/20/20 05:00 36.6 C 46 L 83 L 01/20/20 04:26 36.7 C 41 L 148/71 H 93 01/20/20 04:00 36.7 C 42 L 93 01/20/20 03:26 36.7 C 44 L 154/79 H 94 01/20/20 03:00 36.7 C 44 L 24 91 01/20/20 02:26 36.8 C 42 L 161/74 H 90 01/20/20 02:00 36.8 C 43 L 92 01/20/20 01:25 36.8 C 43 L 146/90 H 90 01/20/20 01:00 36.8 C 42 L 90 01/20/20 00:25 36.8 C 41 L 142/89 H 90 01/20/20 00:02 46 L 24 90 01/20/20 00:00 36.8 C 43 L 89 L 01/19/20 23:25 36.8 C 51 L 140/88 93 01/19/20 23:00 36.8 C 45 L 96 01/19/20 22:25 36.9 C 45 L 151/82 H 96 01/19/20 22:00 37.0 C 45 L 96 01/19/20 21:25 37.0 C 46 L 116/72 93 01/19/20 21:00 37.1 C 45 L 92 01/19/20 20:56 54 L 24 92 01/19/20 20:25 37.1 C 45 L 136/75 91 Laboratory Results 01/20/20 01/20/20 01/20/20 Range/Units 04:20 04:15 04:15 WBC 11.35 H (4.8-10.8) K/uL RBC 4.62 L (4.7-6.1) M/uL Hgb 13.7 L (14.0-18.0) g/dL POC Hgb (14.0-18.0) g/dl Hct 43.0 (42-52) % POC Hct (42-52) % MCV 93.1 (80-100) fL MCH 29.7 (25-34) pg MCHC 31.9 L (32-36) g/dL RDW Std Deviation 46.8 H (36.4-46.3) fL RDW Coeff of Griffin 13.9 (11.5-14.5) % Plt Count 205 (130-400) K/uL MPV 9.9 (7.4-10.4) fL Immature Gran % (Auto) 0.5 % Neut % (Auto) 90.2 % Lymph % (Auto) 6.7 % Davidson % (Auto) 2.0 % Eos % (Auto) 0.6 % Baso % (Auto) 0.0 % Neut # (Auto) 10.23 H (1.4-6.5) K/uL Lymph # (Auto) 0.76 L (1.2-3.4) K/uL Davidson # (Auto) 0.23 (0.11-0.59) K/uL Eos # (Auto) 0.07 (0-0.5) K/uL Baso # (Auto) 0.00 (0-0.2) K/uL Immature Gran # (Auto) 0.06 H (0.00-0.02) K/uL Sample Site POC pH (7.35-7.45) POC pCO2 (35-46) mmHg POC pO2 (80-95) mmHg POC HCO3 (19-24) jennifer/L POC Total CO2 (24-31) mmol/L POC Base Excess (-9-1.8) jennifer/L ABG pH (Temp Correct) (7.35-7.45) ABG pCO2 (Temp Corrct (35-46) mmHg POC ABG pO2 at Pt Temp POC ABG O2 Sat (90-95) % Alphonso Test O2 Delivery Device POC O2 Rate Minute Ventilation POC FiO2 % Tidal Volume PEEP POC Sodium (135-144) mmol/L Sodium 139 (136-145) mmol/L POC Potassium (3.3-5.0) mmol/L Potassium 5.1 (3.5-5.1) mmol/L Chloride 106 (98-107) mmol/L Carbon Dioxide 33 H (21-32) mmol/L Anion Gap -1.0 L (3-11) BUN 26 H (7-18) mg/dl Creatinine 0.64 (0.6-1.4) mg/dl Est Cr Clr Drug Dosing 122.6 ml/min Est GFR ( Amer) 119.1 Est GFR (Non-Af Amer) 102.7 BUN/Creatinine Ratio 40.5 H (10-20) Glucose 124 H (70-99) mg/dl POC Glucose 102 H (70-99) mg/dl Calcium 7.7 L (8.5-10.1) mg/dl Phosphorus 4.1 (2.5-4.9) mg/dl Magnesium 2.7 H (1.8-2.4) mg/dl 01/20/20 01/19/20 01/19/20 Range/Units 02:26 23:28 21:09 WBC (4.8-10.8) K/uL RBC (4.7-6.1) M/uL Hgb (14.0-18.0) g/dL POC Hgb 13.9 L (14.0-18.0) g/dl Hct (42-52) % POC Hct 41 L (42-52) % MCV (80-100) fL MCH (25-34) pg MCHC (32-36) g/dL RDW Std Deviation (36.4-46.3) fL RDW Coeff of Griffin (11.5-14.5) % Plt Count (130-400) K/uL MPV (7.4-10.4) fL Immature Gran % (Auto) % Neut % (Auto) % Lymph % (Auto) % Davidson % (Auto) % Eos % (Auto) % Baso % (Auto) % Neut # (Auto) (1.4-6.5) K/uL Lymph # (Auto) (1.2-3.4) K/uL Davidson # (Auto) (0.11-0.59) K/uL Eos # (Auto) (0-0.5) K/uL Baso # (Auto) (0-0.2) K/uL Immature Gran # (Auto) (0.00-0.02) K/uL Sample Site Art Line POC pH 7.41 (7.35-7.45) POC pCO2 48 H (35-46) mmHg POC pO2 63 L (80-95) mmHg POC HCO3 30 H (19-24) jennifer/L POC Total CO2 32 H (24-31) mmol/L POC Base Excess 6.0 H (-9-1.8) jennifer/L ABG pH (Temp Correct) 7.412 (7.35-7.45) ABG pCO2 (Temp Corrct 48 H (35-46) mmHg POC ABG pO2 at Pt Temp 62 POC ABG O2 Sat 91.0 (90-95) % Alphonso Test NA O2 Delivery Device Ventilator POC O2 Rate 20 Minute Ventilation 10 POC FiO2 40 % Tidal Volume 450 PEEP 16 POC Sodium 138 (135-144) mmol/L Sodium (136-145) mmol/L POC Potassium 5.3 H (3.3-5.0) mmol/L Potassium (3.5-5.1) mmol/L Chloride (98-107) mmol/L Carbon Dioxide (21-32) mmol/L Anion Gap (3-11) BUN (7-18) mg/dl Creatinine (0.6-1.4) mg/dl Est Cr Clr Drug Dosing ml/min Est GFR ( Amer) Est GFR (Non-Af Amer) BUN/Creatinine Ratio (10-20) Glucose (70-99) mg/dl POC Glucose 117 H 115 H (70-99) mg/dl Calcium (8.5-10.1) mg/dl Phosphorus (2.5-4.9) mg/dl Magnesium (1.8-2.4) mg/dl 01/19/20 01/19/20 01/19/20 Range/Units 16:13 12:07 08:33 WBC (4.8-10.8) K/uL RBC (4.7-6.1) M/uL Hgb (14.0-18.0) g/dL POC Hgb (14.0-18.0) g/dl Hct (42-52) % POC Hct (42-52) % MCV (80-100) fL MCH (25-34) pg MCHC (32-36) g/dL RDW Std Deviation (36.4-46.3) fL RDW Coeff of Griffin (11.5-14.5) % Plt Count (130-400) K/uL MPV (7.4-10.4) fL Immature Gran % (Auto) % Neut % (Auto) % Lymph % (Auto) % Davidson % (Auto) % Eos % (Auto) % Baso % (Auto) % Neut # (Auto) (1.4-6.5) K/uL Lymph # (Auto) (1.2-3.4) K/uL Davidson # (Auto) (0.11-0.59) K/uL Eos # (Auto) (0-0.5) K/uL Baso # (Auto) (0-0.2) K/uL Immature Gran # (Auto) (0.00-0.02) K/uL Sample Site POC pH (7.35-7.45) POC pCO2 (35-46) mmHg POC pO2 (80-95) mmHg POC HCO3 (19-24) jennifer/L POC Total CO2 (24-31) mmol/L POC Base Excess (-9-1.8) jennifer/L ABG pH (Temp Correct) (7.35-7.45) ABG pCO2 (Temp Corrct (35-46) mmHg POC ABG pO2 at Pt Temp POC ABG O2 Sat (90-95) % Alphonso Test O2 Delivery Device POC O2 Rate Minute Ventilation POC FiO2 % Tidal Volume PEEP POC Sodium (135-144) mmol/L Sodium (136-145) mmol/L POC Potassium (3.3-5.0) mmol/L Potassium (3.5-5.1) mmol/L Chloride (98-107) mmol/L Carbon Dioxide (21-32) mmol/L Anion Gap (3-11) BUN (7-18) mg/dl Creatinine (0.6-1.4) mg/dl Est Cr Clr Drug Dosing ml/min Est GFR ( Amer) Est GFR (Non-Af Amer) BUN/Creatinine Ratio (10-20) Glucose (70-99) mg/dl POC Glucose 143 H 180 H 122 H (70-99) mg/dl Calcium (8.5-10.1) mg/dl Phosphorus (2.5-4.9) mg/dl Magnesium (1.8-2.4) mg/dl Coding Level of Care Code Critical Care 1st 30-74 mins Diagnoses COVID-19 U07.1 Lactic acid acidosis E87.2 Syncope R55 Acute kidney injury N17.9 Acute liver failure K72.00 Hepatic coma status: without hepatic coma (1) Acute liver failure Hepatic coma status: without hepatic coma Qualified Code(s): K72.00 - Acute a nd subacute hepatic failure without coma
--- NOTE | 2020-01-20 08:57 | XRay Report ---
SINGLE VIEW CHEST CLINICAL HISTORY: ARDS FINDINGS: An AP, portable, upright chest radiograph is compared to study dated 01/19/2020. An endotra cheal tube, an enteric tube, and a right internal jugular central venous catheter are unchanged in po sition. The heart is top normal for projection. Hazy bilateral interstitial airspace opacities are un changed. No large pleural effusion or pneumothorax is seen. The skeletal structures appear osteopenic . The bony thorax is grossly intact. IMPRESSION: 1. Stable lines and tubes. 2. Hazy bilateral airspace opacities are unchanged from yesterday. ACT 112: Negative or not required by law. Electronically signed by: Eugenio Mobley M.D. 01/20/2020 8:56 AM
[2020-01-20] MEDS: NOVASOURCE RENAL 2.0 CAL 1000ML BAG OG SCH ×3 (09:04→20:19)
[2020-01-20] MEDS: ENOXAPARIN INJ 40 MG/0.4 ML SYR SQ SCH ×2 (09:04→20:19)
--- NOTE | 2020-01-20 09:14 | Hospitalist Progress Note ---
Date of Service January 20, 2020 Assessment & Plan (1) Pneumonia due to COVID-19 virus: In ICU on dexamethasone and CAP abx. Patient remains intubated, and not improving. -Patient currently on Decadron: day 9 of 10. Final day :01/21/20 -will continue Remdesivir as ALT is now less than 10x UPPER LIMIT. -LFTs remained at goal. final dose of 5 day course: 01/19 Patient is now intubated. -Patient is not responding to pronation therapy. - Further supportive care per ICU -> Family meeting scheduled rescheduled for Wednesday to discuss end of life status. 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 (2) Abnormal hepatitis serology: AST/ALT were 2900/2000 on admission. much improved. - Continues to improve. - Supportive care (3) Syncope: Likely related to acute illness. (4) SHERYL (acute kidney injury): No prior hx of renal issues. Cr 2.7 on admission. - Cr. now improved (5) Hypertension with goal blood pressure less than 140/90: - Continue home meds per ICU (6) Hyperlipidemia: - Continue home statin (7) DVT prophylaxis: Lovenox 40 mg SQ QAM Admission and Anticipated Discharge Date Admission Date: January 12, 2020 Subjective Patient is intubated. Review of Systems Review of Systems: Unobtainable due to endotracheal tube Physical Exam Physical Exam: Patient is intubated and sedated. Results & Data Results & Data ([facility]) Vital Signs (Past 12 Hours) Vital Signs Temp Pulse Resp BP Pulse Ox 01/20/20 08:04 46 L 28 H 93 01/20/20 06:00 36.7 C 42 L 92 01/20/20 05:26 36.7 C 42 L 171/88 H 93 01/20/20 05:00 36.6 C 46 L 83 L 01/20/20 04:26 36.7 C 41 L 148/71 H 93 01/20/20 04:00 36.7 C 42 L 93 01/20/20 03:26 36.7 C 44 L 154/79 H 94 01/20/20 03:00 36.7 C 44 L 24 91 01/20/20 02:26 36.8 C 42 L 161/74 H 90 01/20/20 02:00 36.8 C 43 L 92 01/20/20 01:25 36.8 C 43 L 146/90 H 90 01/20/20 01:00 36.8 C 42 L 90 01/20/20 00:25 36.8 C 41 L 142/89 H 90 01/20/20 00:02 46 L 24 90 01/20/20 00:00 36.8 C 43 L 89 L 01/19/20 23:25 36.8 C 51 L 140/88 93 01/19/20 23:00 36.8 C 45 L 96 01/19/20 22:25 36.9 C 45 L 151/82 H 96 01/19/20 22:00 37.0 C 45 L 96 01/19/20 21:25 37.0 C 46 L 116/72 93 PG Care Time/CCT Total # of Minutes Spent Total Time Spent with Patient: Total time spent is greater than 50% in coordination of care (as documented) at patient's floor/unit and/or counseling patient: Coding Level of Care Code 81107 Subseq Hosp Care Lvl 2 Diagnoses Pneumonia due to COVID-19 virus U07.1; J12.89 Abnormal hepatitis serology R76.8 Syncope R55 SHERYL (acute kidney injury) N17.9 Hypertension with goal blood pressure less than 140/90 I10 Hyperlipidemia E78.5 DVT prophylaxis Z29.9
[2020-01-20] MEDS: NOREPINEPHRINE/D5W 8 MG/508 ML BAG IV SCH (11:02)
[2020-01-20] MEDS: REMDESIVIR 100 MG in SODIUM CHLORIDE 0.9% 230 ML IV SCH (12:10)
[2020-01-20] MEDS: SODIUM CHLORIDE 0.9% 10ML FLUSH IV SCH (12:20)
[2020-01-20] MEDS ORDERED: SODIUM POLYSTYRENE SULFONATE 15G/60ML SUSP PO STA (13:17)
[2020-01-20] MEDS ORDERED: FUROSEMIDE 40 MG in SYRINGE 0 ML IV ONE (14:00)
[2020-01-20] MEDS: AMITRIPTYLINE HCL 10 MG TAB PO SCH (20:18)
[2020-01-20] MEDS: ATORVASTATIN 10 MG TAB PO SCH (20:19)
[2020-01-21] MEDS: MIDAZOLAM HCL 125 MG/250 ML BAG IV SCH ×3 (00:06→20:23)
[2020-01-21] MEDS: INSULIN ASPART 100 UNITS/ML 3 ML PEN SC SCH ×6 (00:06→20:56)
[2020-01-21 02:48] LABS: iSTAT Art Bld Gas pCO2 Correct 52 mmHg (35-46); iSTAT Art Bld Gas pH Corrected 7.408 (7.35-7.45); iSTAT Arterial Blood Gas HCO3 32 meg/L (19-24); iSTAT Arterial Blood Gas pCO2 50 mmHg (35-46); iSTAT Arterial Blood Gas pH 7.42 (7.35-7.45); iSTAT Arterial Blood Gas pO2 58 mmHg (80-95); iSTAT Arterial Blood Gas pO2 C 60; iSTAT Carbon Dioxide 34 mmol/L (24-31); iSTAT Hematocrit 42 % (42-52); iSTAT Hemoglobin 14.3 g/dl (14.0-18.0); iSTAT Potassium 4.8 mmol/L (3.3-5.0); iSTAT Site Art Line; iSTAT Sodium 139 mmol/L (135-144)
[2020-01-21 04:41] LABS: Eosinophils # (auto) 0.03 K/uL (0-0.5); Eosinophils % (auto) 0.2 %; Hematocrit (blood only) 42.5 % (42-52); Hemoglobin 13.8 g/dL (14.0-18.0); Immature Granulocytes # (auto) 0.09 K/uL (0.00-0.02); Immature Granulocytes % (auto) 0.7 %; Lymphocytes # (auto) 0.89 K/uL (1.2-3.4); Lymphocytes % (auto) 6.6 %; Mean Corpuscular Hemoglobin 29.9 pg (25-34); Mean Corpuscular Hgb Conc 32.5 g/dL (32-36); Mean Corpuscular Volume 92.2 fL (80-100); Mean Platelet Volume 9.8 fL (7.4-10.4); Monocytes # (auto) 0.39 K/uL (0.11-0.59); Monocytes % (auto) 2.9 %; Neutrophils % (auto) 89.6 %; Platelet Count 249 K/uL (130-400); RDW Coefficient of Variation 13.9 % (11.5-14.5); RDW Standard Deviation 46.3 fL (36.4-46.3); Red Blood Count 4.61 M/uL (4.7-6.1)
[2020-01-21 05:10] LABS: BUN Creatinine Ratio 48.3 (10-20); Calcium 7.6 mg/dl (8.5-10.1); Creatinine Clr Calc Pharmacy 113.7 ml/min; Est GFR (African American) 115.5; Est GFR (Non-African American) 99.6; Magnesium 2.6 mg/dl (1.8-2.4); Potassium 4.6 mmol/L (3.5-5.1)
[2020-01-21] MEDS: fentaNYL DRIP 1,250 MCG/250 ML BAG IV SCH ×3 (06:24→20:23)
--- NOTE | 2020-01-21 07:38 | Critical Care Progress Note ---
Date of Service January 21, 2020 Assessment & Plan (1) COVID-19: Neurologic: Sedation protocol, under went to 48 hours of neuromuscular blockade - currently on 4 mg Versed 125 mgLocated fentanyl -Sedation vacation patient arouses moves all 4 extremities however grabs at tube and is subsequently restrained -Patient designated as surrogate decision-maker during verbal discussion prior to intubation when patient had capacity Pulmonary: Mechanical ventilation day 5 Severe hypoxic respiratory failure: Acute: Secondary to COVID-19 -Finished 5 days remdesivir last dose today 01/19 -Decadron finished day 10 on 01/20 Pronation therapy: Compliance largely unchanging with pronation, -Minimal improvement in overall ARDSnet settings PEEP of 14 FiO2 40-50 PF ratio less than 200 -Patient appears to no longer be responding to pronation therapy Cardiovascular: Hypertension resolved -Lisinopril hold secondary to hyperkalemia Hypotension: Minimal improvement still requiring vasoactive's -Requiring vasoactive Levophed at 0.04 mcg/kg/min Asymptomatic bradycardia into the high 30s -EKG demonstrating nonspecific ST changes Gastrointestinal: Stress ulcer prophylaxis: Protonix daily Transaminitis: Improving likely related to COVID-19 Tube feeding bolus form when supine Constipation: Fecal management system and Kayexalate for hyper K while prone -Last BM: None recorded: Mineral oil to 60 mL; 45 g Kayexalate on 01/19, was given 15 g on 01/18 Renal: SHERYL: Resolved Hyperkalemia: Resolved Gentle diuresis 40 mg IV Lasix x1 on 01/20 Infectious disease: COVID-19 pneumonitis. Febrile illness: Resolved Cultures sputum culture urine culture: No growth to date -Day 7/7 of Rocephin on 01/20 and day 5/5 Zithromax on 01/20 negative MRSA swab, Legionella antigen negative Hematologic: DVT prophylaxis: Lovenox 40 twice daily -Increased dosing for COVID-19 Endocrine: Insulin protocol per ICU CODE STATUS: DNR/DNI in event of cardiac arrest Vascular access: Right IJ 01/15 left arterial line 01/15 Family at bedside: Not available due to the COVID-19 pandemic Disposition: ICU I am concerned for a poor outcome given the lack of improvement of oxygenation despite proning x3 days, steroids x10 days, remdesivir x5 days, neuromuscular blockade x3 days, antibiotics x10 days. (2) Lactic acid acidosis: (3) Syncope: (4) Acute kidney injury: (5) Acute liver failure: Admission and Anticipated Discharge Date Admission Date: January 12, 2020 Supervising Physician Co-Signing Physician Notes I was present and assisted with the pronating process. Patient tolerated the pronating movement. Patient's overall ventilatory oxygenation process remains unchanged, I am worried of a poor prognosis. I have personally spent 60 minutes of critical care time in the direct management of this patient. This is a life/limb threatening event. This includes time spent evaluating patient, direct bedside care, chart review, placing orders, interpretation of diagnostic studies, discussion with c onsultants, patient, and/or family members regarding treatment decisions, as well as other required patient management activities. This time is exclusive of all separately billable procedures, and teaching time and separate from and in addition to any other critical care service time. Subjective No overnight events patient remains intubated and sedated Physical Exam Physical Exam: General: Glascow Coma Scale: Eyes: 1, Verbal 1T, Motor 4, Total 6T Psych: RASS score -3 Skin: Warm, dry, Head: Atraumatic Ears, nose, mouth and throat: Airway obscured by endotracheal tube Cardiovascular: Normal peripheral perfusion Respiratory: ventilator settings reviewed Gastrointestinal: Non distended Musculoskeletal: No deformity Results & Data Results & Data ([facility]) Vital Signs (Past 12 Hours) Vital Signs Temp Pulse Resp BP Pulse Ox 01/21/20 02:24 46 L 24 92 01/21/20 02:00 37.7 C H 46 L 92 01/21/20 01:57 37.7 C H 45 L 120/68 92 01/21/20 01:00 37.7 C H 47 L 92 01/21/20 00:57 37.7 C H 47 L 118/68 92 01/21/20 00:00 37.7 C H 50 L 91 01/20/20 23:57 37.7 C H 52 L 116/67 91 01/20/20 23:26 48 L 24 93 01/20/20 23:00 37.8 C H 48 L 93 01/20/20 22:57 37.8 C H 49 L 124/70 93 01/20/20 22:00 37.8 C H 49 L 95 01/20/20 21:57 37.8 C H 48 L 109/67 94 01/20/20 21:00 37.8 C H 50 L 87 L 01/20/20 20:57 37.8 C H 49 L 114/66 85 L 01/20/20 20:36 49 L 25 H 94 01/20/20 20:00 37.8 C H 48 L 94 01/20/20 19:57 37.8 C H 48 L 117/68 93 Coding Level of Care Code Critical Care 1st 30-74 mins Diagnoses COVID-19 U07.1 Lactic acid acidosis E87.2 Syncope R55 Acute kidney injury N17.9 Acute liver failure K72.00 Hepatic coma status: without hepatic coma Time Spent (min) 45 (1) Acute liver failure Hepatic coma status: without hepatic coma Qualified Code(s): K72.00 - Acute and subacute hepatic failure without coma
[2020-01-21] MEDS ORDERED: MINERAL OIL 30 ML UDC PO ONE (07:50)
--- NOTE | 2020-01-21 08:20 | XRay Report ---
XR chest 1V portable HISTORY: intubation COMPARISON: Chest 01/20/2020. FINDINGS: Bilateral hazy airspace opacities most pronounced within the lung bases persists. No pneumo thorax. No pleural effusions. The heart is normal in size. Nasogastric tube terminates in the proxima l stomach. Endotracheal tube terminates 5.5 cm from the christiano. A right subclavian Port-A-Cath termin ates in the proximal SVC. IMPRESSION: 1. Satisfactory support line placement. 2. No change in the hazy bilateral airspace opacities. ACT 112: Negative or not required by law. Electronically signed by: Henry Alvarado M.D. 01/21/2020 8:18 AM
[2020-01-21] MEDS: ASPIRIN 81 MG CHEW PO SCH (09:48)
[2020-01-21] MEDS: PANTOprazole 40 MG in SYRINGE 0 ML IV SCH (09:48)
[2020-01-21] MEDS: DEXAMETHASONE SOD PHOSPHATE 6 MG in SYRINGE 0 ML IV SCH (09:49)
[2020-01-21] MEDS: ENOXAPARIN INJ 40 MG/0.4 ML SYR SQ SCH ×2 (09:49→20:25)
[2020-01-21 10:10] LABS: Fibrinogen 380 mg/dl (184-400); INR 1.2 (0.9-1.1); Partial Thromboplastin Ratio 0.9; Partial Thromboplastin Time 26.1 Seconds (21.0-31.0); Prothrombin Time 12.5 Seconds (9.0-12.0)
[2020-01-21] MEDS: ARTIFICIAL TEARS OP OINT 3.5 GM TUBE OP SCH ×2 (10:58→20:25)
[2020-01-21] MEDS: NOVASOURCE RENAL 2.0 CAL 1000ML BAG OG SCH ×3 (10:58→20:25)
--- NOTE | 2020-01-21 12:34 | Hospitalist Progress Note ---
Date of Service January 21, 2020 Assessment & Plan (1) Pneumonia due to COVID-19 virus: In ICU on dexamethasone and CAP abx. - Intubated now. - On sedation and pressors. - Further supportive care per ICU (2) Abnormal hepatitis serology: AST/ALT were 2900/2000 on admission. - Presently AST/ALT improving. - Supportive care (3) Syncope: Likely related to acute illness. (4) SHERYL (acute kidney injury): No prior hx of renal issues. Cr 2.7 on admission. - Cr. now 0.7. (5) Hypertension with goal blood pressure less than 140/90: BP low now on pressors. - Continue home meds as able (6) Hyperlipidemia: - Continue home statin (7) DVT prophylaxis: Lovenox 40 mg SQ Q12h Admission and Anticipated Discharge Date Admission Date: January 12, 2020 Subjective Patient is intubated. Review of Systems Review of Systems: Unobtainable due to endotracheal tube Physical Exam Constitutional: WD/WN, vitals as above Eyes: EOM intact bilaterally; no conjunctival abnormality ENMT: external ear and nose normal, oropharynx normal Neck: trachea midline, no thyromegaly normal visual inspection Respiratory: + respiratory distress (Intubated) Cardiovascular: RRR, no murmur, no edema Gastrointestinal (Abdomen): Inspection/Auscultation: abdomen normal to inspection; abdomen not distended Musculoskeletal: no cyanosis or clubbing, extremities motor strength 5/5 Skin: no rashes, warm and dry Neurologic: moves all extremities and awake Psychiatric: Orientation: alert, oriented to person and cooperative Results & Data Results & Data ([facility]) Vital Signs (Past 12 Hours) Vital Signs Temp Pulse Resp BP Pulse Ox 01/21/20 12:03 53 L 25 H 93 01/21/20 10:57 37.6 C H 63 106/54 L 94 01/21/20 10:21 37.7 C H 50 L 115/63 88 L 01/21/20 10:00 37.8 C H 54 L 100 01/21/20 09:57 37.8 C H 56 L 91/57 L 89 L 01/21/20 08:57 37.8 C H 53 L 93/59 L 97 01/21/20 08:00 37.8 C H 54 L 95 01/21/20 07:57 37.8 C H 54 L 98/65 L 94 01/21/20 07:50 56 L 24 91 01/21/20 07:00 37.8 C H 54 L 92 01/21/20 02:24 46 L 24 92 01/21/20 02:00 37.7 C H 46 L 92 01/21/20 01:57 37.7 C H 45 L 120/68 92 01/21/20 01:00 37.7 C H 47 L 92 01/21/20 00:57 37.7 C H 47 L 118/68 92 PG Care Time/CCT Total # of Minutes Spent Total Time Spent with Patient: Total time spent is greater than 50% in coordination of care (as documented) at patient's floor/unit and/or counseling patient: Coding Level of Care Code 71585 Subseq Hosp Care Lvl 3 Diagnoses Pneumonia due to COVID-19 virus U07.1; J12.89 Abnormal hepatitis serology R76.8 Syncope R55 SHERYL (acute kidney injury) N17.9 Hypertension with goal blood pressure less than 140/90 I10 Hyperlipidemia E78.5 DVT prophylaxis Z29.9
[2020-01-21] MEDS: NOREPINEPHRINE/D5W 8 MG/508 ML BAG IV SCH (14:07)
[2020-01-21] MEDS: AMITRIPTYLINE HCL 10 MG TAB PO SCH (20:24)
[2020-01-21] MEDS: ATORVASTATIN 10 MG TAB PO SCH (20:25)
[2020-01-22] MEDS: INSULIN ASPART 100 UNITS/ML 3 ML PEN SC SCH ×4 (00:31→11:59)
[2020-01-22 02:52] LABS: iSTAT Art Bld Gas pCO2 Correct 51 mmHg (35-46); iSTAT Art Bld Gas pH Corrected 7.394 (7.35-7.45); iSTAT Arterial Blood Gas HCO3 31 meg/L (19-24); iSTAT Arterial Blood Gas pCO2 50 mmHg (35-46); iSTAT Arterial Blood Gas pO2 60 mmHg (80-95); iSTAT Arterial Blood Gas pO2 C 62; iSTAT Carbon Dioxide 32 mmol/L (24-31); iSTAT Hematocrit 40 % (42-52); iSTAT Hemoglobin 13.6 g/dl (14.0-18.0); iSTAT Potassium 4.5 mmol/L (3.3-5.0); iSTAT Site Art Line; iSTAT Sodium 136 mmol/L (135-144)
[2020-01-22] MEDS: fentaNYL DRIP 1,250 MCG/250 ML BAG IV SCH ×2 (03:32→10:24)
[2020-01-22 03:39] LABS: Eosinophils # (auto) 0.03 K/uL (0-0.5); Eosinophils % (auto) 0.3 %; Hematocrit (blood only) 41.4 % (42-52); Hemoglobin 13.4 g/dL (14.0-18.0); Immature Granulocytes # (auto) 0.05 K/uL (0.00-0.02); Immature Granulocytes % (auto) 0.5 %; Lymphocytes # (auto) 1.09 K/uL (1.2-3.4); Mean Corpuscular Hemoglobin 29.8 pg (25-34); Mean Corpuscular Hgb Conc 32.4 g/dL (32-36); Mean Platelet Volume 9.8 fL (7.4-10.4); Monocytes # (auto) 0.08 K/uL (0.11-0.59); Monocytes % (auto) 0.7 %; Neutrophils # (auto) 9.67 K/uL (1.4-6.5); Neutrophils % (auto) 88.5 %; Platelet Count 262 K/uL (130-400); RDW Coefficient of Variation 14.1 % (11.5-14.5); RDW Standard Deviation 46.9 fL (36.4-46.3); White Blood Count 10.92 K/uL (4.8-10.8)
[2020-01-22 03:40] LABS: Base Excess ABG 4.9 mEq/L (-9-1.8); HCO3 ABG 30 mmol/L (19-24); Oxygen Saturation ABG 89.6 % (90-95); PCO2 ABG 49 mmHg (35-46); PO2 ABG 59 mmHg (80-95); pH ABG 7.41 (7.35-7.45)
[2020-01-22 03:57] LABS: Albumin Level 1.9 gm/dl (3.4-5.0); BUN Creatinine Ratio 50.7 (10-20); Calcium 7.7 mg/dl (8.5-10.1); Creatinine Clr Calc Pharmacy 130.7 ml/min; Est GFR (African American) 122.3; Est GFR (Non-African American) 105.5; Magnesium 2.3 mg/dl (1.8-2.4); Potassium 4.6 mmol/L (3.5-5.1)
[2020-01-22 03:57] LABS: Allen Test Pos (Pos)
[2020-01-22 04:01] LABS: Bilirubin Direct 0.2 mg/dl (0-0.2); Bilirubin,Total 0.7 mg/dl (0.2-1); Phosphorus 4.1 mg/dl (2.5-4.9); Total Protein 5.5 gm/dl (6.4-8.2)
[2020-01-22 04:44] LABS: Fibrinogen 414 mg/dl (184-400); INR 1.2 (0.9-1.1); Partial Thromboplastin Time 27.3 Seconds (21.0-31.0); Prothrombin Time 12.4 Seconds (9.0-12.0)
--- NOTE | 2020-01-22 06:30 | Electrocardiogram Report ---
Test Reason : Blood Pressure : / mmHG Vent. Rate : 064 BPM Atrial Rate : 064 BPM P-R Int : 166 ms QRS Dur : 100 ms QT Int : 426 ms P-R-T Axes : 053 061 036 degrees QTc Int : 439 ms Normal sinus rhythm T wave abnormality, consider anterior ischemia Abnormal ECG When compared with ECG of 12-JAN-2020 09:35, Vent. rate has decreased BY 59 BPM Left posterior fascicular block is no longer Present Incomplete right bundle branch block is no longer Present Nonspecific T wave abnormality now evident in Anterior leads Confirmed by Huy Leonard ([id number]) on 01/22/2020 6:30:05 AM Referred By: REFERRED SELF Confirmed By:Huy Leonard
[2020-01-22] MEDS: ENOXAPARIN INJ 40 MG/0.4 ML SYR SQ SCH (07:52)
[2020-01-22] MEDS: PANTOprazole 40 MG in SYRINGE 0 ML IV SCH (07:52)
[2020-01-22] MEDS: ARTIFICIAL TEARS OP OINT 3.5 GM TUBE OP SCH (07:53)
[2020-01-22] MEDS: NOVASOURCE RENAL 2.0 CAL 1000ML BAG OG SCH (07:53)
[2020-01-22] MEDS: ASPIRIN 81 MG CHEW PO SCH (07:53)
[2020-01-22] MEDS ORDERED: HEPARIN SODIUM/DEXTROSE 25,000 UNITS/500 ML BAG IV SCH (09:15)
[2020-01-22] MEDS ORDERED: HEPARIN IV BOLUS 6,000 UNITS in SYRINGE 0 ML IV ONE (09:15)
--- NOTE | 2020-01-22 09:49 | XRay Report ---
SINGLE VIEW CHEST CLINICAL HISTORY: Respiratory failure. FINDINGS: An AP, portable, upright chest radiograph is compared to study dated 01/21/2020. The examin ation is degraded by portable technique and patient rotation. An endotracheal tube, an enteric tube , and a right subclavian central venous catheter are unchanged in position. The heart is top normal f or projection. Hazy bilateral interstitial airspace opacities are unchanged. No large pleural effusio n or pneumothorax is seen. The skeletal structures appear osteopenic. The bony thorax is grossly inta ct. IMPRESSION: 1. Stable lines and tubes. 2. Hazy bilateral airspace opacities are unchanged from yesterday. ACT 112: Negative or not required by law. Electronically signed by: Eugenio Mobley M.D. 01/22/2020 9:48 AM
--- NOTE | 2020-01-22 09:55 | Consultation ---
Date of Consultation January 22, 2020 Assessment & Plan (1) Ischemic foot: Pt with ischemic L foot, likely from thrombus formation vs embolization. Location of occlusion appears to be very distal, with poor likelihood of successful revascularization, without options for surgical intervention at this time. Pt discussed at length with Dr Pulido, does not recommend vascular surgical intervention. Recommend treat with heparin and allow L foot to demarcate which will indicate level of amputation recommended. Please call if needed. Patient was seen, examined, and chart reviewed. Agree with exam and treatment plan of the Vascular PA. History of Present Illness Reason for Consultation: LLE ischemia Attending Physician: Humberto Rivera MD History of Present Illness 64 yo m with hx of HTN, gout, hyperlipidemia, osteoarthritis, currently admitted with COVID-19 induced pneumonia and respiratory failure, seen urgently in consultation today at traffic recorder's request d/t ischemia of L foot. Pt currently ventilated and sedated. Per staff, mottled discoloration of L foot noted around 0830 this AM. Per staff, it is cold and without cap refill. Remainder of HPI unable to be obtained d/t pt mechanically ventilated. No imaging yet performed. Allergies Allergy/AdvReac Type Severity Reaction Status Date / Time No Known Allergies Allergy Verified 01/12/20 10:44 Home Medications Medication Instructions Recorded Confirmed Type aspirin 81 mg tablet,delayed 81 mg PO QAM 10/13/18 01/12/20 History release atorvastatin 10 mg tablet 10 mg PO QPM #90 tab 05/08/19 01/12/20 Rx sildenafil (pulm.hypertension) 20 50 - 100 mg PO DAILY PRN #30 tab 01/01/20 01/12/20 Rx mg tablet albuterol sulfate 90 mcg/actuation 2 puff INHALATION .COMPLEX PRN 01/10/20 01/12/20 Rx aerosol inhaler #8.5 g inhalational spacing device #1 ea 01/10/20 01/10/20 Rx allopurinol 100 mg PO QAM 01/12/20 01/12/20 History amitriptyline 20 mg PO PM 01/12/20 01/12/20 History azithromycin 250 mg PO QAM 01/12/20 01/12/20 History lisinopril 20 mg PO PM 01/12/20 01/12/20 History prednisone 10 mg PO DIRECTED 01/12/20 01/12/20 History Patient History Medical History (Updated 01/22/20 @ 09:51 by Joanna Smith PA-C) Acute kidney injury Acute liver failure Breast lump Broken ankle Broken collarbone COVID-19 Hyperlipidemia Hypertension with goal blood pressure less than 140/90 Ischemic foot Lymphocytic colitis Osteoarthritis, hand Palliative care encounter Family History Mother Cancer stomach CA Brother Cancer liver CA Denies family history of Ovarian cancer Prostate cancer Myocardial infarction Breast cancer Colorectal cancer Social History Smoking Status: Never smoker Second Hand Exposure: No; Hx Alcohol Use: Yes Alcohol type: beer Alcohol Intake Frequency Comment: 1-2x per week Hx Substance Use: No Preferred Language: Citizen Of [place] Communication Ability: Effective 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 Beliefs That Will Affect Care: None marital status: Current Living Situation: Spouse current occupational status: employed current occupation: [employer] Feels Safe at Home: Yes Dental Care, Regularly: Yes Physical Activity Frequency: Does not Exercise Physical Activity Frequency Comment: walking Seatbelt Use: always Do you think of yourself as: straight/heterosexual Assistive Devices: Oxygen - Continuous Review of Systems Review of Systems: Unobtainable due to endotracheal tube and Unobtainable due to reduced consciousness Physical Exam Constitutional: + ill appearing and + mechanically ventilated Neck: trachea midline Respiratory: mechanically ventilated Cardiovascular: Rate/Rhythm: + bradycardic Extremities: + abnormal capillary refill (L toes ) and no edema L ant tib and post tib dopplerable above ankle with thump noted. popliteal dopplerable with excellent signal and leg warm above ankle Gastrointestinal (Abdomen): Inspection/Auscultation: abdomen normal to inspection Percussion/Palpation: abdomen soft Musculoskeletal: Extremities: + cyanosis (L foot/toes cold, mottled) Results & Data ([facility]) Vital Signs (Past 12 Hours) Vital Signs Temp Pulse Resp BP Pulse Ox 01/22/20 07:46 48 L 25 H 93 01/22/20 05:00 37.5 C 45 L 89 L 01/22/20 04:58 37.5 C 45 L 148/76 H 90 01/22/20 04:00 37.4 C 46 L 91 01/22/20 03:57 37.4 C 45 L 116/66 91 01/22/20 03:00 37.4 C 47 L 91 01/22/20 02:57 37.4 C 46 L 110/65 91 01/22/20 02:46 45 L 26 H 91 01/22/20 02:00 37.4 C 45 L 92 01/22/20 01:57 37.4 C 45 L 117/67 92 01/22/20 01:00 37.4 C 46 L 92 01/22/20 00:57 37.4 C 46 L 112/63 92 01/22/20 00:00 37.4 C 46 L 91 01/21/20 23:57 37.4 C 48 L 110/63 91 01/21/20 23:25 45 L 28 H 92 01/21/20 23:00 37.4 C 47 L 92 01/21/20 22:57 37.4 C 46 L 111/56 L 93 01/21/20 22:00 37.4 C 47 L 92 01/21/20 21:57 37.4 C 47 L 108/64 92
[2020-01-22] MEDS ORDERED: GLUCOSE 10 TABS/TUBE PO PRN (10:00)
[2020-01-22] MEDS ORDERED: CARBOHYDRATES FOR HYPOGLYCEMIA PO PRN (10:00)
[2020-01-22] MEDS ORDERED: DEXTROSE 50% 50 ML SYRINGE IV PRN (10:00)
[2020-01-22] MEDS ORDERED: GLUCOSE 40% GEL 15 GM TUBE PO PRN (10:00)
[2020-01-22] MEDS ORDERED: GLUCAGON FOR INJ 1 MG VIAL IM PRN (10:00)
--- NOTE | 2020-01-22 12:11 | Critical Care Progress Note ---
Date of Service January 22, 2020 Assessment & Plan (1) COVID-19: Impression: 64-year-old male admitted with Covid pneumonia 24-hour events: The patient's ventilator settings have been relatively stable over the last 24 hours. This morning, I noted the patient's left foot to be cold and pulseless with significant cyanosis of the toes. We were only able to get dopplerable pulses above the ankle. Vascular surgery was consulted stat. He was not felt to be a candidate for surgical exploration and they did not recommend amputation but instead recommended the area be allowed to demarcate. Recommendations: Neurologic: Continue sedation with fentanyl and Versed. We will add oral clonazepam and m ethadone. Pulmonary: Patient is mechanical ventilation day 7. He is completed 5 days of remdesivir and 5 days of Decadron. His compliance remains around 30. He is currently on assist control with a rate of 16, tidal volume 400, FiO2 0.4 and PEEP of 14. Will decrease PEEP down to 12 today and see how he does. Plateau pressures around 25. Blood gas 7.41, 49, 59, 30. Family has been unclear on the issue of tracheostomy. See comments below. Cardiovascular: Patient continues to require low-dose norepinephrine to maintain systolic blood pressures. Gastrointestinal: No longer proning as ventilatory mechanics are acceptable and gas exchange is appropriate. Will initiate tube feeds per nutrition and advance as tolerated to goal. Renal: Kidney function is stable. Gentle diuresis to improve respiratory mechanics and dry lungs. Infectious disease: Completed course of remdesivir. He is not been febrile. Off antibiotics. Completed dexamethasone per protocol Hematologic: Patient now appears to have clotting disorders with an ischemic left foot. Consulted vascular surgery. He is not felt to be a candidate for revascularization due to small vessel disease. His pressor requirements are certainly complicating the issue. No plans for surgical intervention. Is highly likely the patient will lose at least a foot. Will discontinue Lovenox and continue heparin. Endocrine: Insulin protocol per ICU VTE prophylaxis: Lovenox discontinued due to ischemic leg and patient started on heparin with full bolus CODE STATUS: Full Family: Had discussion with patient's stepdaughter Maral and patient's spouse Viri. Outlined current course. Viri is quite clear that the patient would not want to consider aggressive interventions in light of potentially losing his foot and need for tracheostomy. Maral is somewhat less convinced and believes the patient may benefit from additional supportive care. The patient did identify Viri as the medical POA/proxy decision-maker prior to intubation. I encouraged Maral and Viri to get together and have a marcelo discussion about goals of therapy and what Eyad would want done if you were able to make his own independent decisions. They have taken this under consideration and will get back to us later today. Given the current vascular complications, I would favor potential terminal extubation as the was apparently leaning in this direction already Disposition: Remain in ICU due to profound hypoxemia. I have personally spent 95 minutes critical care time evaluating and managing life-threatening illness. Patient is at risk of continued clinical decline and . (2) Lactic acid acidosis: (3) Syncope: (4) Acute kidney injury: (5) Acute liver failure: Admission and Anticipated Discharge Date Admission Date: January 12, 2020 Subjective Patient remains intubated and sedated. Review of Systems Review of Systems: Unobtainable due to endotracheal tube Physical Exam Constitutional: + mechanically ventilated Intubated and sedated Neck: trachea midline, no thyromegaly Respiratory: normal respiratory effort Coarse breath sounds bilaterally Cardiovascular: RRR, no murmur, no edema Gastrointestinal (Abdomen): normal bowel sounds, soft, nontender, no hepatos plenomegaly Musculoskeletal: Left foot with significant cyanosis of the toes and cold to touch up to the ankle. No palpable pulses Skin: no rashes, warm and dry Neurologic: Nonfocal exam Lymphatic: no cervical lymphadenopathy Results & Data Results & Data ([facility]) Vital Signs (Past 12 Hours) Vital Signs Temp Pulse Resp BP Pulse Ox 01/22/20 10:57 48 L 26 H 91 01/22/20 10:00 37.3 C 53 L 95 01/22/20 09:57 37.3 C 53 L 98/55 L 95 01/22/20 09:30 37.3 C 48 L 94 01/22/20 09:00 37.3 C 46 L 94 01/22/20 08:57 37.3 C 46 L 104/65 94 01/22/20 08:30 37.3 C 48 L 93 01/22/20 08:00 37.3 C 49 L 94 01/22/20 07:57 37.4 C 49 L 102/57 L 95 01/22/20 07:46 48 L 25 H 93 01/22/20 07:30 37.4 C 47 L 92 01/22/20 07:00 37.4 C 47 L 93 01/22/20 06:57 37.4 C 47 L 113/64 93 01/22/20 06:30 37.4 C 49 L 92 01/22/20 06:00 37.4 C 49 L 91 01/22/20 05:57 37.4 C 49 L 108/63 91 01/22/20 05:30 37.4 C 54 L 88 L 01/22/20 05:00 37.5 C 45 L 89 L 01/22/20 04:58 37.5 C 45 L 148/76 H 90 01/22/20 04:00 37.4 C 46 L 91 01/22/20 03:57 37.4 C 45 L 116/66 91 01/22/20 03:00 37.4 C 47 L 91 01/22/20 02:57 37.4 C 46 L 110/65 91 01/22/20 02:46 45 L 26 H 91 01/22/20 02:00 37.4 C 45 L 92 01/22/20 01:57 37.4 C 45 L 117/67 92 01/22/20 01:00 37.4 C 46 L 92 01/22/20 00:57 37.4 C 46 L 112/63 92 Laboratory Results 01/22/20 03:26 01/22/20 03:26 Diagnostic Findings Chest x-ray independently reviewed: Tubes and lines appear to be stable although it is difficult to visualize with overlying leads. There is persistent haziness throughout the bilateral lung field slightly more prominent at the left lung base compared to the right. Coding Level of Care Code Critical Care ea addt'l 30 min Diagnoses COVID-19 U07.1 Lactic acid acidosis E87.2 Syncope R55 Acute kidney injury N17.9 Acute liver failure K72.00 Hepatic coma status: without hepatic coma Time Spent (min) 90 Comment [id number] and [id number] for 90 minutes critical care time (1) Acute liver failure Hepatic coma status: without hepatic coma Qualified Code(s): K72.00 - Acute and subacute hepatic failure without coma
--- NOTE | 2020-01-22 12:25 | Hospitalist Progress Note ---
Date of Service January 22, 2020 Assessment & Plan (1) Pneumonia due to COVID-19 virus: In ICU. Was on dexamethasone and CAP abx; no longer on 01/21. - Intubated now. - On sedation and pressors. - Further supportive care per ICU (2) Abnormal hepatitis serology: AST/ALT were 2900/2000 on admission. - Presently AST/ALT improving. - Supportive care (3) Syncope: Likely related to acute illness. (4) SHERYL (acute kidney injury): No prior hx of renal issues. Cr 2.7 on admission. - Cr. now 0.7. (5) Hypertension with goal blood pressure less than 140/90: BP low now on pressors. - Continue home meds as able (6) Hyperlipidemia: - Continue home statin (7) DVT prophylaxis: Heparin gtt Admission and Anticipated Discharge Date Admission Date: January 12, 2020 Subjective Intubated and sedated Review of Systems Review of Systems: Unobtainable due to endotracheal tube Physical Exam Constitutional: WD/WN, vitals as above Eyes: EOM intact bilaterally; no conjunctival abnormality ENMT: external ear and nose normal, oropharynx normal Neck: trachea midline, no thyromegaly normal visual inspection Respiratory: + respiratory distress (Intubated) Cardiovascular: Rate/Rhythm: regular rhythm and + bradycardic Gastrointestinal (Abdomen): Inspection/Auscultation: abdomen normal to inspection; abdomen not distended Musculoskeletal: no cyanosis or clubbing, extremities motor strength 5/5 Skin: no rashes, warm and dry Neurologic: + does not move all extremities and + not awake Psychiatric: Orientation: + not alert and + not oriented to person Results & Data Results & Data ([facility]) Vital Signs (Past 12 Hours) Vital Signs Temp Pulse Resp BP Pulse Ox 01/22/20 10:57 48 L 26 H 91 01/22/20 10:00 37.3 C 53 L 95 01/22/20 09:57 37.3 C 53 L 98/55 L 95 01/22/20 09:30 37.3 C 48 L 94 01/22/20 09:00 37.3 C 46 L 94 01/22/20 08:57 37.3 C 46 L 104/65 94 01/22/20 08:30 37.3 C 48 L 93 01/22/20 08:00 37.3 C 49 L 94 01/22/20 07:57 37.4 C 49 L 102/57 L 95 01/22/20 07:46 48 L 25 H 93 01/22/20 07:30 37.4 C 47 L 92 01/22/20 07:00 37.4 C 47 L 93 01/22/20 06:57 37.4 C 47 L 113/64 93 01/22/20 06:30 37.4 C 49 L 92 01/22/20 06:00 37.4 C 49 L 91 01/22/20 05:57 37.4 C 49 L 108/63 91 01/22/20 05:30 37.4 C 54 L 88 L 01/22/20 05:00 37.5 C 45 L 89 L 01/22/20 04:58 37.5 C 45 L 148/76 H 90 01/22/20 04:00 37.4 C 46 L 91 01/22/20 03:57 37.4 C 45 L 116/66 91 01/22/20 03:00 37.4 C 47 L 91 01/22/20 02:57 37.4 C 46 L 110/65 91 01/22/20 02:46 45 L 26 H 91 01/22/20 02:00 37.4 C 45 L 92 01/22/20 01:57 37.4 C 45 L 117/67 92 01/22/20 01:00 37.4 C 46 L 92 01/22/20 00:57 37.4 C 46 L 112/63 92 PG Care Time/CCT Total # of Minutes Spent Total Time Spent with Patient: Total time spent is greater than 50% in coordination of care (as documented) at patient's floor/unit and/or counseling patient: Coding Level of Care Code 64138 Subseq Hosp Care Lvl 3 Diagnoses Pneumonia due to COVID-19 virus U07.1; J12.89 Abnormal hepatitis serology R76.8 Syncope R55 SHERYL (acute kidney injury) N17.9 Hypertension with goal blood pressure less than 140/90 I10 Hyperlipidemia E78.5 DVT prophylaxis Z29.9
[2020-01-22] MEDS ORDERED: PEPTAMEN INTENSE VHP 1.0 CAL 1,000 ML BAG OG SCH (12:45)
[2020-01-22] MEDS ORDERED: ONDANSETRON INJ 2 MG/ML 2 ML VIAL IV PRN (16:59)
[2020-01-22] MEDS ORDERED: ATROPINE SULFATE 1% OP SOLN 2 ML BTL SL PRN (16:59)
[2020-01-22] MEDS ORDERED: LORazepam 0.5 MG TAB PO PRN (16:59)
[2020-01-22] MEDS ORDERED: LORazepam 0.5 MG/1 ML VIAL IV PRN ×2 (16:59→21:22)
[2020-01-22] MEDS ORDERED: ONDANSETRON 4 MG OD TAB SL PRN (16:59)
[2020-01-22] MEDS ORDERED: MoRPHine SULF/NSS 250 MG/250 ML BTL IV SCH (17:00)
--- NOTE | 2020-01-22 20:51 | Palliative Care Progress Note ---
Date of Service January 22, 2020 Assessment & Plan (1) Palliative care encounter: Palliative care, on multiple occasions have talked with the patients , Viri and daughter Maral regarding goals of care. Today, we revisited the goals of care conversation. The patient has shown to be relatively stable on the ventilator for the past two days. The patient was found to have a cold left foot this morning and was deemed not a good surgical candidate. Dr. Cox was able to speak with Viri, confirming that she would not want any additional aggressive measures taken regarding his care. Maral was also spoken to, who agreed to do a ZOOM call with me in her fathers room. Viri, was in the lobby of the hospital and we agreed to call Maral together. I was clear with Maral regarding her fathers current condition. Maral agreed to do a ZOOM conference call with me in her fathers room. After discussion, she agreed to compassionate extubation if all of the patietns siblings were able to call and say goodbye. A good length of time was spent collaborating calls with the patients siblings/relatives: Andre Burton, Arianna, Fracisco, Juan Pablo, Fanta, and Alecia. The patient was extubated after all were in agreement to [facility]. Viri was cleared for window visitation. Patient was placed on a Morphine gtt. Some posturing noted while I was in the room. Patient hypoxic and tachycardic. Set expectation that patient would likely live minutes to hours. (2) Pneumonia due to COVID-19 virus: Intubated: A/C 0.40% Tv 400 PEEP 14 on Remdesivir, Decadron and abx. (3) Acute respiratory failure: (4) Sepsis: On Levophed 0.05 Admission and Anticipated Discharge Date Admission Date: January 12, 2020 Subjective Late entry. Saw patient and discussed goals of care with family from [id number]. Review of Systems Review of Systems: Unobtainable due to endotracheal tube Physical Exam Constitutional: + ill appearing and + mechanically ventilated Respiratory: + cough Auscultation: + rhonchi Cardiovascular: Rate/Rhythm: regular rate Vessels: dorsalis pedis pulses present (left pedal pulse absent ) and radial pulses present Extremities: normal capillary refill poor perfusion and no circulation to left foot Gastrointestinal (Abdomen): normal bowel sounds, soft, nontender, no hepatosplenomegaly Skin: + dry skin, + mottling and + pallor Psychiatric: A+Ox3, euthymic affect Results & Data ([facility]) Vital Signs (Past 12 Hours) Vital Signs Temp Pulse Resp BP Pulse Ox 01/22/20 17:30 37.2 C 36 H 60 L 01/22/20 17:13 37.5 C 93 H 21 126/64 70 L 01/22/20 17:00 37.6 C H 73 92 01/22/20 16:43 37.6 C H 53 L 97/56 L 92 01/22/20 16:30 37.6 C H 51 L 94 01/22/20 16:13 37.6 C H 51 L 102/57 L 94 01/22/20 16:00 37.6 C H 62 92 01/22/20 15:50 60 25 H 91 01/22/20 15:43 37.5 C 54 L 87/48 L 94 01/22/20 15:30 37.5 C 50 L 93 01/22/20 15:13 37.5 C 52 L 96/55 L 90 01/22/20 15:00 37.5 C 51 L 95 01/22/20 14:43 37.5 C 55 L 78/47 L 95 01/22/20 14:30 37.5 C 51 L 96 01/22/20 14:13 37.5 C 52 L 86/52 L 95 01/22/20 14:00 37.5 C 55 L 95 01/22/20 13:43 37.4 C 55 L 78/49 L 94 01/22/20 13:30 37.5 C 49 L 95 01/22/20 13:13 37.5 C 53 L 98/56 L 94 01/22/20 13:00 37.5 C 58 L 94 01/22/20 12:43 37.4 C 51 L 100/59 L 95 01/22/20 12:30 37.4 C 50 L 95 01/22/20 12:13 37.4 C 49 L 109/62 93 01/22/20 12:00 37.4 C 60 93 01/22/20 11:56 37.4 C 60 79/43 L 92 01/22/20 11:43 37.4 C 50 L 97/56 L 91 01/22/20 11:30 37.3 C 49 L 91 01/22/20 11:00 37.4 C 57 L 91 01/22/20 10:57 37.4 C 56 L 26 H 100/56 L 91 01/22/20 10:37 37.4 C 56 L 100/56 L 96 01/22/20 10:30 37.3 C 49 L 97 01/22/20 10:00 37.3 C 53 L 95 01/22/20 09:57 37.3 C 53 L 98/55 L 95 01/22/20 09:30 37.3 C 48 L 94 01/22/20 09:00 37.3 C 46 L 94 01/22/20 08:57 37.3 C 46 L 104/65 94 PG Care Time/CCT Total # of Minutes Spent Total Time Spent with Patient: Total time spent is greater than 50% in coordination of care (as documented) at patient's floor/unit and/or counseling patient: 135 Coding Level of Care Code 94645 Subseq Hosp Care Lvl 3 Diagnoses Palliative care encounter Z51.5 Pneumonia due to COVID-19 virus U07.1; J12.89 Acute respiratory failure J96.00 Respiratory failure complication: unspecified whether with hypoxia or hypercapnia Sepsis A41.9; R65.20; N17.9 Acute renal failure type: unspecified Sepsis acute organ dysfunction status: with acute organ dysfunction Sepsis type: sepsis due to unspecified organism Severe sepsis acute organ dysfunction type: acute renal failure Severe sepsis shock status: without septic shock Time Spent (min) 135 Time Spent Midlevel Total time spent 135 minutes with > 50% of that time spent providing multiple family meetings over zoom, symptom management, and collaborating with IDT (1) Acute respiratory failure Respiratory failure complication: unspecified whether with hypoxia or hyperc apnia Qualified Code(s): J96.00 - Acute respiratory failure, unspecified whether with hypoxia or hypercapnia (2) Sepsis Acute renal failure type: unspecified Sepsis acute organ dysfunction status: with acute organ dysfunction Sepsis type: sepsis due to unspecified organism Severe sepsis acute organ dysfunction type: acute renal failure Severe sepsis shock status: without septic shock Qualified Code(s): A41.9 - Sepsis, u nspecified organism; R65.20 - Severe sepsis without septic shock; N17.9 - Acute kidney failure, unspecified
--- NOTE | 2020-01-22 22:47 | Death Pronouncement Note ---
Date of Service January 22, 2020 Pronouncement Note Admission Date Admission Date: January 12, 2020 PRONOUNCEMENT NOTE - Date: 01/22/2020 Time: 2233 I was contacted by nursing staff regarding the patients declining status and concerns for imminent demise. In short, patient had been intubated for COVID-19 pneumonia. As of today patient was made comfort care per family decision. He was palliatively extubated this afternoon. Assessment: I presented to the patients room for evaluation. Upon assessment, the patient was found to be in a terminal state. Pupils were fixed and dilated without response. No palpable pulses appreciated. No spontaneous breaths noted. Heart sounds were absent. No response to painful stimuli. Time of : 2233 as pronounced by myself. Family was present on Zoom call and were made aware of patient's expiration by RN. Appropriate response to grief appreciated. Patients primary service was contacted and made aware of patient demise. Pronouncement section of the Certificate was filled out and signed by myself. Cause of : Primary -COVID-19 pneumonia Secondary -acute hypoxic respiratory failure Please feel free to contact me with any questions regarding the above-mentioned course. Contributing Factors (1) Palliative care encounter: (2) Pneumonia due to COVID-19 virus: (3) Acute respiratory failure: (4) Sepsis: Additional Data Attending physician: Humberto Rivera MD Coding Level of Care Code None Diagnoses Palliative care encounter Z51.5 Pneumonia due to COVID-19 virus U07.1; J12.89 Acute respiratory failure J96.00 Respiratory failure complication: unspecified whether with hypoxia or hypercapnia Sepsis A41.9; R65.20; N17.9 Acute renal failure type: unspecified Sepsis acute organ dysfunction status: with acute organ dysfunction Sepsis type: sepsis due to unspecified organism Severe sepsis acute organ dysfunction type: acute renal failure Severe sepsis shock status: without septic shock
--- NOTE | 2020-01-23 07:18 | Discharge Summary ---
Date of Service January 22, 2020 Admission HPI Per Admitting Provider 64 y/o M c/o passing out. Pt has felt generally unwell the last few days with cough, congestion, and fever. He was put on prednisone and azithromycin by his PCP and was coming to the hospital today to have a CXR when he passed out in the lobby. He does not remember falling. Pt states that he did not eat anything yet today, but that he ate fine yesterday. He has had some looser stools, but no marcelo diarrhea. Pt denies chest pain, abd pain, n/v, LE pain or swelling. Pt was found to be very tachypneic in the ED. He was put on BIPAP and states he is no longer SOB. He states he feels much better at this time and that his cough is less. Pt's has COVID and is at home ill with this. She has not been hospitalized. Principal Diagnosis Covid-19 Discharge Exam Respiratory + abnormal respiratory effort (No breath sounds per report) Cardiovascular Asystole Psychiatric Orientation: + not alert Discharge Data Allergies Allergy/AdvReac Type Severity Reaction Status Date / Time No Known Allergies Allergy Verified 01/12/20 10:44 Consultations 01/12/20 12:15 ED Decision to Admit Stat 01/12/20 17:50 Consult Case Management - Discharge Planning Routine Consult Temporary Help Agency Referral Clerk Routine 01/18/20 09:42 Consult Palliative Care Routine 01/22/20 17:00 Consult Case Management - Discharge Planning Routine Consult Palliative Care Routine Ordered Studies 01/12/20 11:04 CT abd pelvis wo con Stat CT chest wo con Stat Hospital Course (1) Pneumonia due to COVID-19 virus: Patient at 22:34 after terminal extubation. (2) Abnormal hepatitis serology: AST/ALT were 2900/2000 on admission. (3) Syncope: Likely related to acute illness. (4) SHERYL (acute kidney injury): No prior hx of renal issues. Cr 2.7 on admission. - Cr. now 0.7. (5) Hypertension with goal blood pressure less than 140/90: BP low now on pressors. - Continue home meds as able (6) Hyperlipidemia: - Continue home statin (7) DVT prophylaxis: Heparin gtt Total Time Total Time Spent Total Time Spent (In Minutes): 35 Discharge Plan Discharge Items Patient Disposition: Coding Level of Care Code D/C Day Management >30 mins Diagnoses Pneumonia due to COVID-19 virus U07.1; J12.89 Abnormal hepatitis serology R76.8 Syncope R55 SHERYL (acute kidney injury) N17.9 Hypertension with goal blood pressure less than 140/90 I10 Hyperlipidemia E78.5 DVT prophylaxis Z29.9
--- NOTE | 2020-01-25 10:54 | Coding Query ---
To promote full compliance with coding requirements relating to patient care, provider participation is requested in all cases of veneer trimmer uncertainty. Please assist us with the question(s) below: Coding Question(s): The diagnosis below was documented in the palliative consultation then subsequently fell off all further documentation. Please indicate if it is still a possible diagnosis or ruled out. Physician's Response(s): SEPSIS ( x ) Diagnosed and POA ( ) Diagnosed and not POA ( ) Ruled out ( ) Other (please specify) MTDD
== END 2020-01-22 22:34 | disposition expired | DRG 870 ==
LOC: ED 09:33 → 1E 12:57 → SUATTDRO 12:57 → 1E 17:08